=== PATIENT | female | born 1945 | race Caucasian/White ===

== ENCOUNTER 2017-02-27 11:46 | Inpatient (IN) | payer OTHER, MEDICAID ==
[~2017-02-27] VITALS: Ht 142.2 cm; Wt 67.6 kg
[2017-02-27 11:54] VITALS: BP 135/121
[2017-02-27] MEDS ORDERED: METO100T9 PO (12:00)
[2017-02-27] MEDS ORDERED: AMLO2.5T6 PO (12:00)
[2017-02-27] MEDS ORDERED: BEN10 PO (12:00)
[2017-02-27] MEDS ORDERED: ROSU10TA PO (12:00)
[2017-02-27] MEDS ORDERED: ALPR0.5T2 PO (12:00)
--- NOTE | 2017-02-27 12:02 | NUR ---
Patient to bed 8 at this time.
--- NOTE | 2017-02-27 12:03 | NUR ---
PT PRESENTS TO ER W/C/O CHEST PAIN, ABDOMINAL PAIN AND VOMITING SINCE THIS AM. HX ASTHMA, HTN, HYPERLIPIDEMIA, DIVERTICULITIS, GASTRITIS, ANXIETY. SKIN IS PINK/WARM/DRY; AAOX4 WITH EVEN AND STEADY GAIT; LUNGS CLEAR BL; HR EVEN AND REGULAR; PT DENIES ANY FEVER, CP, SOB, OR COUGH AT THIS TIME; PATIENT STATES PAIN OF 10/10 AT THIS TIME; VSS; PATIENT POSITIONED FOR COMFORT; HOB ELEVATED; BEDRAILS UP X2; BED DOWN. ER MD MADE AWARE OF PT STATUS. Addendum: 02/27/17 at 1515 by MED1 R KNEE SURGERY X 4 MO; SMALL SKIN OPEN.
[2017-02-27] MEDS ORDERED: cloNIDine 0.1 MG TAB PO ONE ×2 (12:05→12:30)
[2017-02-27] MEDS ORDERED: ONDANSETRON 4 MG/2 ML VIAL IVP ONE ×2 (12:05→12:30)
[2017-02-27] MEDS ORDERED: LORazepam 2 MG/ML VIAL IVP ONE ×2 (12:05→12:30)
[2017-02-27] MEDS ORDERED: NITROGLYCERIN 2% 1 GM PKT TP ONE ×2 (12:05→12:30)
[2017-02-27] MEDS ORDERED: ASPIRIN 81 MG TAB.CHEW PO ONE (12:05)
--- NOTE | 2017-02-27 12:09 | NUR ---
Patient being evaluated by physician at bedside.
[2017-02-27 12:33] LABS: EOSINOPHILS % (AUTO) 0.5 % (0.0-4.0)
[2017-02-27 12:39] LABS: BASOPHILS # (AUTO) 0.2 K/uL (0.00-0.22); BASOPHILS % (AUTO) 2.7 % (0.0-2.0); HEMATOCRIT 41.8 % (36-48); HEMOGLOBIN 14.5 g/dL (12.0-16.0); LYMPHOCYTES # (AUTO) 1.8 K/uL (2.5-16.5); LYMPHOCYTES % (AUTO) 20.5 % (20.5-51.1); MEAN CORPUSCULAR HEMOGLOBIN 34 pg (27-31); MEAN CORPUSCULAR HGB CONC 35 g/dL (33-37); MEAN CORPUSCULAR VOLUME 97 fL (80-94); MONOCYTES # (AUTO) 1.1 K/uL (0.8-1.0); MONOCYTES % (AUTO) 12.5 % (1.7-9.3); NEUTROPHILS # (AUTO) 5.9 K/uL (1.8-7.7); NEUTROPHILS % (AUTO) 63.8 % (42.2-75.2); PLATELET COUNT (AUTO) 354 K/uL (140-450); RED BLOOD CELL COUNT(AUTO) 4.31 MIL/uL (4.20-5.40); RED CELL DISTRIBUTION WIDTH 13.1 % (11.6-13.7)
[2017-02-27 12:49] LABS: PROTHROMBIN TIME 10.2 secs (10.8-13.4)
[2017-02-27 12:53] LABS: ALBUMIN 3.5 g/dL (3.4-5.0); ANION GAP 12.8 (8-16); ASPARTATE AMINOTRANSFERASE 20 U/L (15-37); CARBON DIOXIDE 25.3 mmol/L (21-32); CHLORIDE 91 mmol/L (98-107); CREATININE 0.6 mg/dL (0.6-1.3); GLUCOSE 115 mg/dL (74-106); POTASSIUM 3.1 mmol/L (3.5-5.1); SODIUM SERUM 126 mmol/L (136-145); TOTAL BILIRUBIN 0.5 mg/dL (0.0-1.0); UREA NITROGEN, BLOOD 7 mg/dL (7-18)
--- NOTE | 2017-02-27 12:59 | NUR ---
PT TAKEN TO X [facility].
--- NOTE | 2017-02-27 13:13 | NUR ---
BACK FROM X [facility].
--- NOTE | 2017-02-27 13:41 | NUR ---
Patient appears to be resting comfortably in bed. BP 93.56, PULSE OX 88% Respirations even and unlabored. GAVE OXIGEN 2 L/M NC . & 0.9% NSS 1000 ML WIDE OPEN PER MD ORDER. WILL CONTINUE TO MONITOR.
[2017-02-27] MEDS ORDERED: NACL 0.9% 1,000 ML IV ONE (13:50)
[2017-02-27] MEDS ORDERED: POTASSIUM CHL 20MEQ/D5-NS 1,000 ML IV ONE (13:50)
[2017-02-27] MEDS: NACL 0.9% 1,000 ML IV SCH ×2 (14:16→20:52)
[2017-02-27] MEDS ORDERED: ONDANSETRON 4 MG/2 ML VIAL IVP PRN (14:20)
[2017-02-27] MEDS ORDERED: HYDROcodone/APAP 7.5/325 MG 1 TAB PO PRN (14:20)
[2017-02-27] MEDS ORDERED: MECLIZINE 25 MG TAB PO PRN (14:45)
[2017-02-27] MEDS ORDERED: NITROGLYCERIN 0.4 MG TAB SL PRN (14:45)
--- NOTE | 2017-02-27 14:56 | NUR ---
Patient will be admitted to care of DR SANTOS. Admited to TELE. Will go to room 107B. Belongings list completed. Report to GINA MTZ.
--- NOTE | 2017-02-27 14:56 | NUR ---
GAVE REPORT TO GINA SWEET.
[2017-02-27 15:03] LABS: CHOL/HDL RATIO 3.7 (1-4.5); FREE T4 (FREE THYROXINE) 1.38 ng/dL (0.76-1.46); MAGNESIUM 1.9 mg/dL (1.8-2.4); PHOSPHORUS 2.9 mg/dL (2.5-4.9); THYROID STIMULATING HORMONE 2.93 uIU/mL (0.34-3.74)
[2017-02-27 15:06] LABS: APPEARANCE,URINE CLEAR (CLEAR); BILIRUBIN,URINE NEGATIVE (NEGATIVE); BLOOD, URINE NEGATIVE (NEGATIVE); COLOR,URINE YELLOW (YELLOW); LEUKOCYTE ESTERASE ,URINE TRACE (NEGATIVE); NITRITE, URINE NEGATIVE (NEGATIVE); UGLUCOSE NEGATIVE (NEGATIVE)
[2017-02-27 15:19] LABS: RBC,URINE 0-5 (RARE) /HPF (0-5); WBC,URINE 0-5 (RARE) /HPF (0-5)
--- NOTE | 2017-02-27 15:50 | NUR ---
Admitted from ER , with chief complaint of ABDOMINAL PAIN, CHEST PAIN , 71 y/o ,Female, AAOX4, NO S/S OF ACUTE DISTRESS. PT DENIES PAIN. IV SITE PATENT AND INTACT. BRUISING TO BUE AND BLE NOTED. PT STATES IT STARTED 2 MONTHS AGO AND DOESN'T KNOW WHERE IT COMES FROM. HEALED WOUND TO RIGHT KNEE NOTED. PIC IN CHART. TELE BOX IN PLACE. PLAN OF CARE DISCUSSED WITH PT. SON DARLENE MI AT BEDSIDE. PT oriented to call light, bed, phone,television, bathroom, smoking policy, visiting hours, procedures, ID bracelet on. Belongings list checked. WILL CONTINUE TO MONITOR.
[2017-02-27 16:09] VITALS: BP 142/78
[2017-02-27] MEDS ORDERED: METO-575 PO (16:13)
[2017-02-27] MEDS ORDERED: METOPROLOL SUCCINATE 50 MG TABER PO SCH (17:00)
[2017-02-27] MEDS ORDERED: amLODIPine 5 MG TAB PO SCH (17:00)
[2017-02-27] MEDS: DICYCLOMINE 10 MG CAP PO SCH (17:36)
[2017-02-27 18:23] VITALS: BP 108/60
[2017-02-27 18:24] VITALS: BP_SYST 108; BP_SYST 111; BP_DIAS 52; BP_DIAS 63
--- NOTE | 2017-02-27 19:19 | NUR ---
ENDORSED PLAN OF CARE TO NIGHT RN AT [facility]. WILL CONTINUE TO MONITOR.
--- NOTE | 2017-02-27 19:20 | NUR ---
RECEIVED REPORT FROM AM NURSE. PT IS AOX4, ABLE TO MAKE NEEDS KNOWN. WITH RESPIRATIONS CLEAR AND UNLABORED. NO COMPLAINTS OF PAIN AT THIS TIME. WITH AN IV, INTACT AND PATENT. NOTED WITH WITH BLE AND BUE DISCOLORATIONS. WITH A RIGHT KNEE HEELED WOUND. ON TELE MONITORING. INITIAL ASSESSMENT DONE. REORIENTED PT TO THE UNIT, VERBALIZED UNDERSTANDING. WILL CONTINUE TO MONITOR. ALL NEEDS ATTENDED. CALL LIGHT WITHIN REACH. SAFETY CHECKS IN PLACE.
[2017-02-27 20:00] VITALS: BP 105/55
[2017-02-27] MEDS: ATORVASTATIN 20 MG TAB PO SCH (21:00)
[2017-02-27] MEDS: DOCUSATE SODIUM 100 MG GELCAP PO SCH ×2 (21:00→21:04)
--- NOTE | 2017-02-27 21:04 | NUR ---
DUE MEDS GIVEN, WELL TOLERATED BY PATIENT. WILL CONTINUE TO MONITOR FOR ANY CHANGES.
[2017-02-27] MEDS: ACETAMINOPHEN 325 MG TAB PO PRN (21:50)
[2017-02-28] VITALS: BP 98/52
--- NOTE | 2017-02-28 | NUR ---
VITAL SIGNS STABLE. NO S/S OF DISTRESS. NO COMPLAINTS OF PAIN. WILL CONTINUE TO MONITOR FOR ANY CHANGES.
--- NOTE | 2017-02-28 02:22 | NUR ---
MADE ROUNDS, PATIENT ASLEEP. NO S/S OF DISTRESS. WILL CONTINUE TO MONITOR FOR ANY CHANGES.
--- NOTE | 2017-02-28 02:53 | NUR ---
TOLD DR. CHISHOLM THAT THE PATIENT'S PAIN SCALE WAS 9/10 AND DID NOT HAVE ANY PAIN MEDICATION FOR HER PAIN SCALE. SAID HE WOULD ORDER SOMETHING FOR HER PAIN.
[2017-02-28] MEDS ORDERED: MORPHINE SULFATE 2 MG/ML SYR IVP PRN (03:00)
--- NOTE | 2017-02-28 03:01 | NUR ---
DUE TO PT'S LOW PULSE RATE AND LOW BLOOD PRESSURE, DR. CHISHOLM SAID THAT HE DOESN'T WANT TO GIVE MORPHINE FOR HER PAIN AND SAID THAT HE WOULD RATHER HAVE THE PATIENT BE IN PAIN THAN TO CRASH AND JUST TO GIVE HER ZANAX INSTEAD.
--- NOTE | 2017-02-28 03:15 | NUR ---
TALKED TO DR. CHISHOLM IN REGARDS TO PATIENT'S PAIN, TOLD HIM THAT THE PATIENT SAID THAT HER ABDOMINAL PAIN IS LIKE THERE ARE HOLES IN HER STOMACH. SAID HE WILL COME TO TALK TO THE PATIENT HERSELF.
[2017-02-28] MEDS ORDERED: DICYCLOMINE HCL LIQUID 20 MG, ALUMINUM HYD/MAG/SIMETHICONE 30 ML, LIDOCAINE VISCOUS 2% ... PO SCH ×3 (03:20)
[2017-02-28] MEDS: ALPRAZolam 0.5 MG TAB PO PRN (03:22)
--- NOTE | 2017-02-28 03:22 | NUR ---
GAVE XANAX TO THE PATIENT FOR HER ANXIETY.
[2017-02-28] MEDS ORDERED: LIDOCAINE VISCOUS 2% 20 ML UDC ONE (03:53)
[2017-02-28] MEDS ORDERED: ALUMINUM HYD/MAG/SIMETHICONE 30 ML UDC ONE (03:53)
[2017-02-28 04:00] VITALS: BP 133/68
[2017-02-28] MEDS ORDERED: DICYCLOMINE HCL LIQUID 10 MG/5 ML UDC ONE (04:00)
--- NOTE | 2017-02-28 04:04 | NUR ---
VITALS STABLE. NO S/S OF DISTRESS. GAVE A GI COCKTAIL PER DR. CHISHOLM'S ORDER. WILL CONTINUE TO MONITOR FOR ANY CHANGES.
[2017-02-28 06:32] LABS: BASOPHILS # (AUTO) 0.1 K/uL (0.00-0.22); BASOPHILS % (AUTO) 1.7 % (0.0-2.0); EOSINOPHILS % (AUTO) 0.6 % (0.0-4.0); HEMOGLOBIN 13.9 g/dL (12.0-16.0); LYMPHOCYTES # (AUTO) 1.6 K/uL (2.5-16.5); LYMPHOCYTES % (AUTO) 18.8 % (20.5-51.1); MEAN CORPUSCULAR HEMOGLOBIN 34 pg (27-31); MEAN CORPUSCULAR HGB CONC 35 g/dL (33-37); MEAN CORPUSCULAR VOLUME 99 fL (80-94); MONOCYTES % (AUTO) 12.2 % (1.7-9.3); NEUTROPHILS # (AUTO) 5.6 K/uL (1.8-7.7); NEUTROPHILS % (AUTO) 66.7 % (42.2-75.2); PLATELET COUNT (AUTO) 330 K/uL (140-450); RED BLOOD CELL COUNT(AUTO) 4.04 MIL/uL (4.20-5.40); RED CELL DISTRIBUTION WIDTH 13.9 % (11.6-13.7); WHITE BLOOD COUNT (AUTO) 8.3 K/uL (4.8-10.8)
[2017-02-28] MEDS: NACL 0.9% 1,000 ML IV SCH ×2 (06:37→18:51)
[2017-02-28 06:39] LABS: ANION GAP 11.6 (8-16); CHLORIDE 105 mmol/L (98-107); CREATININE 0.5 mg/dL (0.6-1.3); GLUCOSE 98 mg/dL (74-106); POTASSIUM 3.6 mmol/L (3.5-5.1); SODIUM SERUM 140 mmol/L (136-145); UREA NITROGEN, BLOOD 4 mg/dL (7-18)
--- NOTE | 2017-02-28 07:08 | NUR ---
ENDORSED TO AM SHIFT NURSE FOR CONTINUITY OF CARE, IN STABLE CONDITION.
[2017-02-28 08:00] VITALS: BP 121/61
--- NOTE | 2017-02-28 08:17 | NUR ---
RECEIVED REPORT FROM LAZARA FUENTES FOR CONTINUITY OF CARE. PATIENT AWAKE A/OX4 NO S/S OF RESP DISTRESS NOTED NO COMPLAIN OF PAIN. IV SITE RT AC GAUGE 22 INTACT AND PATENT . IVF INFUSING WELL. PLAN OF CARE DISCUSSED WITH THE PATIENT VITALS STABLE WILL CONTINUE TO MONITOR.
[2017-02-28] MEDS ORDERED: ASPIRIN 325 MG TABEC PO SCH (09:00)
--- NOTE | 2017-02-28 09:00 | NUR ---
DUE MEDS GIVEN TOLERATED WELL . SELF MORNING CARE GIVEN WILL OBSERVE PATENT
[2017-02-28] MEDS ORDERED: HYDROcodone/APAP 10/325 MG 1 TAB TAB PO PRN (09:15)
[2017-02-28] MEDS: PANTOPRAZOLE 40 MG INJ VIAL IVP SCH (09:37)
[2017-02-28] MEDS: DOCUSATE SODIUM 100 MG GELCAP PO SCH ×2 (09:37→20:02)
[2017-02-28] MEDS: ASPIRIN 81 MG TAB.CHEW PO SCH (09:38)
[2017-02-28] MEDS: DICYCLOMINE 10 MG CAP PO SCH ×3 (09:38→16:35)
[2017-02-28] MEDS: METOPROLOL SUCCINATE 50 MG TABER PO SCH (09:38)
[2017-02-28] MEDS: LISINOPRIL 5 MG TAB PO SCH (09:39)
[2017-02-28] MEDS: amLODIPine 5 MG TAB PO SCH (09:39)
--- NOTE | 2017-02-28 09:56 | NUR ---
PATIENT HAS BEEN SCREENED AND CATEGORIZED MODERATE NUTRITION RISK. PATIENT WILL BE SEEN WITHIN 3-5 DAYS OF ADMISSION. 03/02/17-03/04/[address]
[2017-02-28] MEDS ORDERED: LACTOBACILLUS RHAMNOSUS GG 1 EACH CAP PO SCH (11:00)
[2017-02-28 12:05] VITALS: BP 113/56
--- NOTE | 2017-02-28 14:17 | NUR ---
PT BACK TO THE FLOOR ,SBFT DONE HALF WAY WILL GO BACK FOR THE 2ND PART . STABLE CONDITION.
--- NOTE | 2017-02-28 15:44 | NUR ---
2ND PART SBFT DONE . RELAXED ,DENIES ANY PAIN VITALS STABLE.
[2017-02-28 16:07] VITALS: BP 124/52
--- NOTE | 2017-02-28 17:07 | NUR ---
AMBULATE TO BATHROOM HAD BM , DENIES ANY PAIN VITALS STABLE AT THIS TIME.
--- NOTE | 2017-02-28 18:21 | NUR ---
DINNER SERVED TOLERATED WELL ,SAFETY MAINTAINED, CALL LIGHT IN REACH ,STABLE CONDITION.
--- NOTE | 2017-02-28 19:20 | NUR ---
RECEIVED REPORT FROM MORNING NURSE. PATIENT IS ALERT, AWAKE, AND ORIENTED. NO SIGNS AND SYMPTOMS OF DISTRESS NOTED. NO COMPLAINTS OF PAIN AT THIS TIME. IV SITE NOTED ON RIGHT ARM. IVF INFUSING WELL. BED IN LOWEST POSITION, SIDE RAILS UP AND CALL LIGHT WITHIN REACH. WILL CONTINUE TO MONITOR.
[2017-02-28 20:00] VITALS: BP 116/54
[2017-02-28] MEDS: SUCRALFATE 1 GM TAB PO SCH (20:01)
[2017-02-28] MEDS: ATORVASTATIN 20 MG TAB PO SCH (20:01)
--- NOTE | 2017-02-28 23:30 | NUR ---
CHECKED ON PATIENT, PATIENT IS ASLEEP. NO SIGNS AND SYMPTOMS OF DISTRESS NOTED. WILL CONTINUE TO MONITOR.
[2017-03-01] VITALS: BP 127/71
--- NOTE | 2017-03-01 03:30 | NUR ---
PATIENT COMPLAINED OF HEADACHE. MEDICATION GIVEN.
[2017-03-01] MEDS: ACETAMINOPHEN 325 MG TAB PO PRN (03:36)
[2017-03-01] MEDS: NACL 0.9% 1,000 ML IV SCH ×2 (03:42→13:03)
[2017-03-01 04:00] VITALS: BP 145/75
[2017-03-01] MEDS: ALPRAZolam 0.5 MG TAB PO PRN (06:11)
[2017-03-01 07:08] LABS: BASOPHILS # (AUTO) 0.1 K/uL (0.00-0.22); BASOPHILS % (AUTO) 1.5 % (0.0-2.0); EOSINOPHILS # (AUTO) 0.1 K/uL (0-0.4); EOSINOPHILS % (AUTO) 0.7 % (0.0-4.0); HEMATOCRIT 40.3 % (36-48); HEMOGLOBIN 13.6 g/dL (12.0-16.0); LYMPHOCYTES # (AUTO) 1.3 K/uL (2.5-16.5); LYMPHOCYTES % (AUTO) 16.2 % (20.5-51.1); MEAN CORPUSCULAR HEMOGLOBIN 34 pg (27-31); MEAN CORPUSCULAR HGB CONC 34 g/dL (33-37); MEAN CORPUSCULAR VOLUME 100 fL (80-94); MONOCYTES # (AUTO) 0.9 K/uL (0.8-1.0); MONOCYTES % (AUTO) 11.1 % (1.7-9.3); NEUTROPHILS # (AUTO) 5.9 K/uL (1.8-7.7); NEUTROPHILS % (AUTO) 70.5 % (42.2-75.2); PLATELET COUNT (AUTO) 287 K/uL (140-450); RED BLOOD CELL COUNT(AUTO) 4.04 MIL/uL (4.20-5.40); RED CELL DISTRIBUTION WIDTH 13.5 % (11.6-13.7); WHITE BLOOD COUNT (AUTO) 8.3 K/uL (4.8-10.8)
--- NOTE | 2017-03-01 07:24 | NUR ---
PATIENT REPORT GIVEN AT BEDSIDE TO MORNING NURSE. PATIENT IS IN STABLE CONDITION.
--- NOTE | 2017-03-01 07:25 | NUR ---
RECEIVED PT FROM DRUG ABUSE PROGRAM COORDINATOR NURSE AT BEDSIDE. PT IS A&OX4. PT HAS IV ON L HAND 24 G RUNNING NS@110. PT HAS BLE AND BUE DISCOLORATION. NO COMPLAINTS AT THIS TIME. CALL LIGHT WITHIN REACH. WILL CONTINUE TO MONITOR.
[2017-03-01] MEDS ORDERED: NITR100C7 PO (07:28)
[2017-03-01] MEDS ORDERED: LACT10CA PO (07:28)
[2017-03-01 07:30] LABS: CARBON DIOXIDE 25.1 mmol/L (21-32); CHLORIDE 108 mmol/L (98-107); CREATININE 0.5 mg/dL (0.6-1.3); GLUCOSE 87 mg/dL (74-106); POTASSIUM 3.1 mmol/L (3.5-5.1); SODIUM SERUM 142 mmol/L (136-145); UREA NITROGEN, BLOOD 7 mg/dL (7-18)
[2017-03-01 07:55] VITALS: BP 122/73
[2017-03-01 08:00] VITALS: BP 122/73
[2017-03-01] MEDS: DOCUSATE SODIUM 100 MG GELCAP PO SCH ×2 (09:00→09:20)
[2017-03-01] MEDS: amLODIPine 5 MG TAB PO SCH ×2 (09:00→09:21)
[2017-03-01] MEDS ORDERED: LACTOBACILLUS RHAMNOSUS GG 1 EACH CAP PO SCH (09:00)
--- NOTE | 2017-03-01 09:00 | NUR ---
PT IN STABLE CONDITION. CALL LIGHT WITHIN REACH. WILL CONTINUE TO MONITOR.
[2017-03-01] MEDS: PANTOPRAZOLE 40 MG INJ VIAL IVP SCH (09:18)
[2017-03-01] MEDS: LISINOPRIL 5 MG TAB PO SCH (09:19)
[2017-03-01] MEDS: DICYCLOMINE 10 MG CAP PO SCH ×2 (09:19→13:00)
[2017-03-01] MEDS: SUCRALFATE 1 GM TAB PO SCH (09:20)
[2017-03-01] MEDS: METOPROLOL SUCCINATE 50 MG TABER PO SCH (09:20)
[2017-03-01] MEDS: ASPIRIN 81 MG TAB.CHEW PO SCH (09:22)
[2017-03-01] MEDS ORDERED: POTASSIUM CHLORIDE 20% 40 MEQ/15 ML UDC PO SCH (09:30)
--- NOTE | 2017-03-01 10:40 | NUR ---
PT REQUESTED TO SPEAK TO ONCE HER SON GETS HERE. WILL TALK TO DR TO LET HER KNOW ONCE SON GETS HERE.
--- NOTE | 2017-03-01 11:45 | NUR ---
PT FINISHED LUNCH IN CHAIR. NO DISTRESS NOTED. CALL LIGHT WITHIN REACH. WILL CONTINUE TO MONITOR.
[2017-03-01 12:00] VITALS: BP 143/79
--- NOTE | 2017-03-01 13:20 | NUR ---
REMOVED IV CANNULA INTACT. REMOVED ALL ID BANDS. WENT OVER DC PAPERWORK WITH PT USING TRANSLATION PHONE # [phone]. PT WILL GET DRESSED AND CALL RN WHEN READY TO GO.
--- NOTE | 2017-03-01 13:30 | NUR ---
WHEELED PT OUT OF HOSPITAL. PT TOOK ALL BELONGINGS WITH HER. PT IN STABLE CONDITION.
== END 2017-03-01 13:30 | disposition home or self-care (01) | DRG 74 ==
LOC: MED 11:46 → MTU 14:23
PROVIDERS: ADMIT Family Medicine Sports Medicine; ATTEND Family Medicine Sports Medicine
DX: G90.9 Disorder of the autonomic nervous system, unspecified (principal); E87.1 Hypo-osmolality and hyponatremia; E87.8 Other disorders of electrolyte and fluid balance, not elsewhere classified; K56.7 Ileus, unspecified; N39.0 Urinary tract infection, site not specified; K21.9 Gastro-esophageal reflux disease without esophagitis; R42 Dizziness and giddiness; E87.6 Hypokalemia; I16.0 Hypertensive urgency; E11.9 Type 2 diabetes mellitus without complications; K57.90 Diverticulosis of intestine, part unspecified, without perforation or abscess without bleeding; E78.2 Mixed hyperlipidemia; E78.00 Pure hypercholesterolemia, unspecified; M19.90 Unspecified osteoarthritis, unspecified site; E66.9 Obesity, unspecified; F41.1 Generalized anxiety disorder; Z68.33 Body mass index [BMI] 33.0-33.9, adult; Z98.84 Bariatric surgery status
CPT/HCPCS: 36415; 70450; 71010; 74000; 74250; 80048; 80053; 81001; 82140; 82150; 83036; 83690; 83735; 83880; 84100; 84439; 84443; 84484; 85025; 85610; 85730; 87081; 93005; 93880; 97110; 97116; 97530; 99291; C9113; J0696; J2060; J2405; J7030; J7060; Q0092

== ENCOUNTER 2017-03-02 22:23 | Inpatient (IN) | payer OTHER, MEDICAID ==
[~2017-03-02] VITALS: Ht 152.4 cm; Wt 66.7 kg
[~2017-03-02 22:23] MED LIST: ALPR0.5T2 PO; AMLO2.5T6 PO; BEN10 PO; LACT10CA PO; METO-575 PO; METO100T9 PO; NITR100C7 PO; ROSU10TA PO
[2017-03-02 22:38] VITALS: BP 153/116
--- NOTE | 2017-03-02 23:28 | NUR ---
PT TAKEN TO CT VIA WHEELCHAIR.
--- NOTE | 2017-03-02 23:39 | NUR ---
BIB WHEELCHAIR TO ER BED [address] SCAN
--- NOTE | 2017-03-02 23:40 | NUR ---
EARLE GILMORE EVALUATING PT AT BED SIDE.
[2017-03-03] VITALS (9 sets, daily range): BP systolic 122–158; BP diastolic 46–75
--- NOTE | 2017-03-03 00:03 | NUR ---
71 Y/O BIB SON FOR HIGH BLOOD PRESSURE AT HOME. DISCHARGED FROM [facility] YESTERDAY .PT CONFUSED SINCE THIS AFTERNOON PER SON. MED HX: HTN/DIVERTICULITIS
[2017-03-03 00:12] LABS: HEMATOCRIT 46.3 % (36-48); HEMOGLOBIN 15.5 g/dL (12.0-16.0); MEAN CORPUSCULAR HEMOGLOBIN 33 pg (27-31); MEAN CORPUSCULAR HGB CONC 34 g/dL (33-37); MEAN CORPUSCULAR VOLUME 98 fL (80-94); PLATELET COUNT (AUTO) 440 K/uL (140-450); RED BLOOD CELL COUNT(AUTO) 4.73 MIL/uL (4.20-5.40); RED CELL DISTRIBUTION WIDTH 12.7 % (11.6-13.7); WHITE BLOOD COUNT (AUTO) 11.4 K/uL (4.8-10.8)
[2017-03-03 00:23] LABS: ANION GAP 14.1 (8-16); CHLORIDE 76 mmol/L (98-107); CREATININE 0.6 mg/dL (0.6-1.3); GLUCOSE 157 mg/dL (74-106); POTASSIUM 3.1 mmol/L (3.5-5.1); UREA NITROGEN, BLOOD 8 mg/dL (7-18)
[2017-03-03 00:33] LABS: LYMPHOCYTES % (MANUAL) 20 % (20-46); MONOCYTES % (MANUAL) 5 % (5-12)
[2017-03-03 00:34] LABS: PROTHROMBIN TIME 11.1 secs (10.8-13.4)
[2017-03-03 00:38] LABS: SODIUM SERUM 113 mmol/L (136-145)
[2017-03-03] MEDS ORDERED: NACL 3% 100 ML IV ONE ×2 (00:40→03:30)
--- NOTE | 2017-03-03 01:42 | NUR ---
PT RESTING IN BED, VSS. DEXTER CONTINUES AT BEDSIDE. ON MONITOR,NORMAL SINUS RHYTHM.
--- NOTE | 2017-03-03 02:15 | NUR ---
PT ASSISTED WITH BED PED FOR URINE. 100ML CLEAR YELLOW URINE NOTED. NO ODOR. PT RESTING IN BED AT THIS TIME. NO ACUTE DISTRESS NOTED. SON AT BED SIDE.
--- NOTE | 2017-03-03 02:40 | NUR ---
REPORT GIVEN TO GINA MIRANDA IN ICU FOR PT BEING ADMITTED TO ICU BED 2.
--- NOTE | 2017-03-03 02:45 | NUR ---
RECEIVED REPORT FROM GINA PAINTING. PT GCS 15. BILATERAL PERRLA NOTED. DENIES PAIN OR DISCOMFORT. LUNGS CLEAR ON AUSCULTATION. EQUAL, UNLABORED BREATH NOTED. SR ON MONITOR. SKIN INTACT. R FOREARM 22 GAUGE IV NOTED. INTACT AND PATENT. GENERALIZED MILD WEAKNESS NOTED. ABLE TO AMBULATE TO BED WITH 2 PEOPLE MINIMAL ASSIST. BOWEL SOUND PRESENT X 4 QUADRANT. ABDOMEN SOFT, NONTENDER. SAFETY PRECAUTION MAINTAINED. NO S/SX OF ACUTE DISTRESS NOTED. CALL LIGHT WITHIN REACH. BED AT LOWEST SETTING. WILL CONTINUE TO MONITOR FOR CHANGES
--- NOTE | 2017-03-03 02:45 | NUR ---
PT TRANSFERRED TO ICU BED 2 VIA GURNEY ACCOMPANIED BY RN AND EMT. PT STABLE DURING TRANSFER.
[2017-03-03] MEDS ORDERED: MORPHINE SULFATE 2 MG/ML SYR IVP PRN (02:55)
[2017-03-03] MEDS ORDERED: DOCUSATE SODIUM 100 MG GELCAP PO PRN (02:55)
--- NOTE | 2017-03-03 03:15 | NUR ---
PT RESTING IN BED. EASILY AWAKEN. WILL CONTINUE TO MONITOR.
[2017-03-03 03:24] LABS: ANION GAP 13.5 (8-16); CARBON DIOXIDE 26.1 mmol/L (21-32); CHLORIDE 78 mmol/L (98-107); CREATININE 0.4 mg/dL (0.6-1.3); GLUCOSE 121 mg/dL (74-106); UREA NITROGEN, BLOOD 8 mg/dL (7-18)
[2017-03-03 03:28] LABS: POTASSIUM 2.6 mmol/L (3.5-5.1); SODIUM SERUM 115 mmol/L (136-145)
[2017-03-03 03:39] LABS: APPEARANCE,URINE CLOUDY (CLEAR); BILIRUBIN,URINE NEGATIVE (NEGATIVE); BLOOD, URINE TRACE-I (NEGATIVE); COLOR,URINE YELLOW (YELLOW); LEUKOCYTE ESTERASE ,URINE NEGATIVE (NEGATIVE); NITRITE, URINE NEGATIVE (NEGATIVE); UGLUCOSE NEGATIVE (NEGATIVE)
[2017-03-03 03:40] LABS: CHOL/HDL RATIO 2.4 (1-4.5); FREE T4 (FREE THYROXINE) 1.57 ng/dL (0.76-1.46); MAGNESIUM 1.7 mg/dL (1.8-2.4); PHOSPHORUS 2.8 mg/dL (2.5-4.9); THYROID STIMULATING HORMONE 3.23 uIU/mL (0.34-3.74)
[2017-03-03] MEDS ORDERED: KCL 20 MEQ/WATER INJ PREMIX 200 ML IV SCH (03:40)
--- NOTE | 2017-03-03 03:45 | NUR ---
PT STATED ALLERGIES TO MORPHINE. MD NOTIFIED. WILL CHANGE ALLERGIES.
--- NOTE | 2017-03-03 03:50 | NUR ---
R WRIST SWELLING NOTED. KERLIX REMOVED FROM ARM. ARM ELEVATED TO REDUCE SWELLING, WILL CONTINUE TO MONITOR. BILATERAL FOREARM NOTED WITH BRUISES. PICTURE TAKEN.
[2017-03-03] MEDS ORDERED: KETOROLAC 30 MG/ML VIAL IVP PRN ×2 (04:00→04:25)
--- NOTE | 2017-03-03 04:00 | NUR ---
PER MD, WILL FOLLOW NEW ORDERS AND HOLD PAIN MEDICATION FOR NOW.
[2017-03-03 04:06] LABS: RBC,URINE 0-5 (RARE) /HPF (0-5); WBC,URINE 0-5 (RARE) /HPF (0-5)
--- NOTE | 2017-03-03 04:10 | NUR ---
PER DR. CHISHOLM, 3% NS 100 ML WILL BE GIVEN PUSH OVER 5 MIN NOT DRIP. WILL CARRY OUT ORDERED.
[2017-03-03] MEDS ORDERED: PANTOPRAZOLE 40 MG INJ VIAL IVP SCH (04:15)
[2017-03-03] MEDS ORDERED: NACL 3% 100 ML IV SCH (04:15)
--- NOTE | 2017-03-03 04:26 | NUR ---
PT C/O PAIN AT THE IV SITE WITH KCL ADMINISTRATION. PER KYLE ZAMORANO TO CHANGE RATE OF POTASSIUM TO 25 ML/HR FOR NOW. WILL CONTINUE TO MONITOR.
--- NOTE | 2017-03-03 05:00 | NUR ---
PT C/O ABDOMINAL PAIN. STATED SLIGHT RELIEF FROM PROTONIX IVP. PER PT, PAIN WILL BE RELIEVED WITH FOOD. SANDWICH PROVIDED. WILL CONTINUE TO MONITOR.
[2017-03-03 05:54] LABS: HEMATOCRIT 45.9 % (36-48); HEMOGLOBIN 15.3 g/dL (12.0-16.0); MEAN CORPUSCULAR HEMOGLOBIN 33 pg (27-31); MEAN CORPUSCULAR HGB CONC 33 g/dL (33-37); MEAN CORPUSCULAR VOLUME 99 fL (80-94); PLATELET COUNT (AUTO) 376 K/uL (140-450); RED BLOOD CELL COUNT(AUTO) 4.63 MIL/uL (4.20-5.40)
--- NOTE | 2017-03-03 06:00 | NUR ---
ASSISTED PT TO BEDSIDE COMMODE. PT ABLE TO AMBULATE. VOIDED. PT HAD SMALL AMOUNT OF LOOSE BM
[2017-03-03 06:34] LABS: ANION GAP 13.8 (8-16); CARBON DIOXIDE 23.9 mmol/L (21-32); CHLORIDE 81 mmol/L (98-107); CREATININE 0.4 mg/dL (0.6-1.3); GLUCOSE 113 mg/dL (74-106); UREA NITROGEN, BLOOD 8 mg/dL (7-18)
[2017-03-03 06:37] LABS: POTASSIUM 2.7 mmol/L (3.5-5.1); SODIUM SERUM 116 mmol/L (136-145)
[2017-03-03 07:11] LABS: LYMPHOCYTES % (MANUAL) 19 % (20-46); MONOCYTES % (MANUAL) 7 % (5-12)
[2017-03-03] MEDS ORDERED: KETOROLAC 15 MG/ML VIAL IVP PRN (07:19)
--- NOTE | 2017-03-03 07:40 | NUR ---
RECEIVED A REPORT FROM GINA MIRANDA. PT IS ALERT AND ORIENTED X 4. STOMACH PAIN 11/09 BUT REFUSED PAIN MED AT THIS TIME. ABLE TO MOVE ALL EXTREMITIES WITHOUT ANY DIFFICULTY. ABDOMEN SOFT AND NONTENDER. IV SITE ON RT ARM #20G AND RFA #22G. NO S/SX OF ACUTE DISTRESS NOTED. ON SCD. PROVIDED BREAKFAST TRAY AT BEDSIDE. DR. DIAZ IN TO SEE PT AND INFORMED OF ABNORMAL LAB RESULT. SAFETY PRECAUTION. BED IN LOW POSITION, CALL LIGHT WITHIN REACH. WILL CONTINUE TO MONITOR AND FOLLOW ON ORDERS. Addendum: 03/03/17 at 0905 by Alberto Calderon RN SKIN INTACT AND WARM TO TOUCH.
--- NOTE | 2017-03-03 07:43 | NUR ---
ENDORSED CARE TO RUTH AND GINA REINOSO. PT IS STABLE.
--- NOTE | 2017-03-03 07:50 | NUR ---
DR. DIAZ'S GROUP IN TO SEE PT. WILL FOLLOW UP ON ORDERS.
[2017-03-03] MEDS: LACTOBACILLUS RHAMNOSUS GG 1 EACH CAP PO SCH (08:29)
[2017-03-03] MEDS: amLODIPine 5 MG TAB PO SCH (08:30)
[2017-03-03] MEDS: METOPROLOL SUCCINATE 50 MG TABER PO SCH ×2 (08:30→09:00)
[2017-03-03] MEDS ORDERED: POTASSIUM CHLORIDE 10 MEQ TABER PO SCH (08:32)
[2017-03-03] MEDS ORDERED: MAGNESIUM CHLORIDE 64 MG TABEC PO SCH (08:32)
--- NOTE | 2017-03-03 08:42 | NUR ---
PATIENT HAS BEEN SCREENED AND CATEGORIZED MODERATE NUTRITION RISK. PATIENT WILL BE SEEN WITHIN 3-5 DAYS OF ADMISSION. 03/05/17-03/07/[address]
[2017-03-03] MEDS ORDERED: PANTOPRAZOLE 40 MG TABEC PO SCH (08:56)
--- NOTE | 2017-03-03 09:00 | NUR ---
HOLD TOPROL XL DUE TO HR IS BELOW 60. PT STABLE
[2017-03-03] MEDS: FAMOTIDINE 20 MG TAB PO SCH ×2 (09:19→20:06)
--- NOTE | 2017-03-03 09:20 | NUR ---
PT TOLERATED MEDICATIONS WELL
--- NOTE | 2017-03-03 09:45 | NUR ---
URINE SAMPLE WAS SENT TO THE LAB.
--- NOTE | 2017-03-03 09:46 | NUR ---
PT'S SON PRESENT AT BEDSIDE.
--- NOTE | 2017-03-03 09:51 | NUR ---
PT'S SON AT BEDSIDE AND UPDATED PT'S MEDICAL CONDITION STATUS.
[2017-03-03 10:31] LABS: ANION GAP 12.8 (8-16); CHLORIDE 81 mmol/L (98-107); CREATININE 0.4 mg/dL (0.6-1.3); GLUCOSE 112 mg/dL (74-106); POTASSIUM 3.8 mmol/L (3.5-5.1); UREA NITROGEN, BLOOD 10 mg/dL (7-18)
[2017-03-03 10:34] LABS: SODIUM SERUM 114 mmol/L (136-145)
[2017-03-03] MEDS ORDERED: PROBIOTIC SCREEN 1 EA MISC MC PRN (10:55)
[2017-03-03] MEDS ORDERED: NACL 3% 500 ML IV SCH (10:55)
[2017-03-03] MEDS: ALUMINUM HYD/MAG/SIMETHICONE 30 ML UDC PO PRN (11:26)
--- NOTE | 2017-03-03 11:26 | NUR ---
DR. EVANS IN TO SEE PT. WILL FOLLOW UP ON ORDERS.
--- NOTE | 2017-03-03 11:30 | NUR ---
MALANTA PRN MEDICATION GIVEN ORDERED DUE TO C/O STOMACH DISCOMFORT
[2017-03-03] MEDS ORDERED: SODIUM CHLORIDE 1 GM TAB PO SCH (12:00)
[2017-03-03] MEDS ORDERED: FUROSEMIDE 20 MG/2 ML VIAL IVP SCH (12:00)
--- NOTE | 2017-03-03 12:11 | NUR ---
PT TOLERATED MEDICATION WELL
[2017-03-03] MEDS: ONDANSETRON 4 MG/2 ML VIAL IM/IVP PRN (12:55)
--- NOTE | 2017-03-03 12:56 | NUR ---
PT IS HAVING A EPISODE OF NAUSEA AND VOMIT X 1. ZOFRAN IV GIVEN PRN ORDERED. WILL CONTINUE TO MONITOR
--- NOTE | 2017-03-03 13:33 | NUR ---
PT VERBALIZED NO NAUSEA AND VOMITING AT THIS TIME.
--- NOTE | 2017-03-03 15:36 | NUR ---
PT STABLE AND ASLEEP AT THIS TIME. WILL CONTINUE TO MONITOR
--- NOTE | 2017-03-03 16:28 | NUR ---
MEDICATION GIVEN FOR STOMACH PAIN 12/09 ORDERED. WILL CONTINUE TO MONITOR
--- NOTE | 2017-03-03 16:40 | NUR ---
DR. PEDRAZA IN TO SEE PT. WILL FOLLOW UP ON ORDERS
[2017-03-03 17:10] LABS: ANION GAP 12.2 (8-16); CARBON DIOXIDE 26.8 mmol/L (21-32); CHLORIDE 82 mmol/L (98-107); CREATININE 0.6 mg/dL (0.6-1.3); GLUCOSE 100 mg/dL (74-106); UREA NITROGEN, BLOOD 10 mg/dL (7-18)
--- NOTE | 2017-03-03 17:11 | NUR ---
RECEIVED A CALL FROM LAB REGARDING CRITICAL LAB RESULT OF SODIUM 117. IT IS TRENDING UP AND PT IS ASYMPTOMATIC. WILL CONTINUE TO MONITOR.
[2017-03-03 17:12] LABS: SODIUM SERUM 117 mmol/L (136-145)
--- NOTE | 2017-03-03 17:24 | NUR ---
DR. MONCADA IN TO SEE PT. WILL FOLLOW UP ON ORDERS
--- NOTE | 2017-03-03 19:16 | NUR ---
REPORT GIVEN TO RAYSHAWN LONG RN. PT STABLE
--- NOTE | 2017-03-03 19:20 | NUR ---
RECEIVED A REPORT FROM GINA CLOUD AND GINA REINOSO AT BEDSIDE. PT IS A/OX4, ABLE TO FOLLOW COMMANDS AND MAKE NEEDS KNOWN. DENIES PAIN, VSS, NO S/S OF SOB/DISTRESS NOTED, CLEAR LUNG SOUNDS, DENIES CHEST PAIN, SR ON FACULTY PHYSICIAN, SOFT ABDOMEN WITH ACTIVE BOWEL SOUNDS, CONTINENT WITH B&B'S, ABLE TO MOVE ALL EXTREMITIES, SCD PLACED ON BLE FOR PREVENTION. SKIN IS INTACT, WARM AND DRY TO TOUCH. IV SITE TO RT FOREARM #20G AND #22G. PATENT, SL. SAFETY PRECAUTION IN PLACE, CALL LIGHT WITHIN REACH, WILL CONTINUE TO MONITOR.
[2017-03-03] MEDS: SODIUM CHLORIDE 1 GM TAB PO SCH (20:05)
[2017-03-03] MEDS: SIMVASTATIN 20 MG TAB PO SCH (20:05)
--- NOTE | 2017-03-03 20:30 | NUR ---
SCHEDULED MEDICATION GIVEN, PT ABLE TO SWALLOW AND NO ADVERSE EFFECTS NOTED.
[2017-03-03] MEDS ORDERED: NON-FORMULARY ITEM (Rosuvastatin Calcium* (Crestor*) 10 MG) PO SCH (21:00)
[2017-03-03 22:36] LABS: ANION GAP 7.7 (8-16); CARBON DIOXIDE 29.4 mmol/L (21-32); CHLORIDE 84 mmol/L (98-107); CREATININE 0.7 mg/dL (0.6-1.3); GLUCOSE 92 mg/dL (74-106); POTASSIUM 4.1 mmol/L (3.5-5.1); UREA NITROGEN, BLOOD 14 mg/dL (7-18)
[2017-03-03 22:38] LABS: SODIUM SERUM 117 mmol/L (136-145)
[2017-03-04] VITALS (8 sets, daily range): BP systolic 89–148; BP diastolic 51–82
--- NOTE | 2017-03-04 | NUR ---
PT IS ASLEEP, NO S/S OF DISTRESS, VSS.
--- NOTE | 2017-03-04 04:00 | NUR ---
NO CHANGE OF CONDITION AT THIS TIME, VSS, AM CARE PROVIDED, ORAL CARE PROVIDED.
[2017-03-04 04:48] LABS: HEMATOCRIT 43.3 % (36-48); HEMOGLOBIN 14.9 g/dL (12.0-16.0); MEAN CORPUSCULAR HEMOGLOBIN 33 pg (27-31); MEAN CORPUSCULAR HGB CONC 34 g/dL (33-37); MEAN CORPUSCULAR VOLUME 97 fL (80-94); PLATELET COUNT (AUTO) 384 K/uL (140-450); RED BLOOD CELL COUNT(AUTO) 4.47 MIL/uL (4.20-5.40); RED CELL DISTRIBUTION WIDTH 13.1 % (11.6-13.7); WHITE BLOOD COUNT (AUTO) 9.1 K/uL (4.8-10.8)
[2017-03-04] MEDS: ONDANSETRON 4 MG/2 ML VIAL IM/IVP PRN ×3 (05:00→16:53)
--- NOTE | 2017-03-04 05:05 | NUR ---
PT FEELING NAUSEATED, ZOFRAN GIVEN, WILL CONTINUE TO MONITOR.
[2017-03-04] MEDS: PANTOPRAZOLE 40 MG TABEC PO SCH (05:54)
[2017-03-04 06:19] LABS: CHLORIDE 85 mmol/L (98-107); CREATININE 0.6 mg/dL (0.6-1.3); GLUCOSE 89 mg/dL (74-106); UREA NITROGEN, BLOOD 17 mg/dL (7-18)
[2017-03-04 06:21] LABS: SODIUM SERUM 117 mmol/L (136-145)
[2017-03-04 06:35] LABS: MAGNESIUM 1.9 mg/dL (1.8-2.4); PHOSPHORUS 3.7 mg/dL (2.5-4.9)
[2017-03-04 06:42] LABS: EOSINOPHILS % (MANUAL) 1 % (0-4); LYMPHOCYTES % (MANUAL) 13 % (20-46); MONOCYTES % (MANUAL) 7 % (5-12)
--- NOTE | 2017-03-04 07:10 | NUR ---
REPORT GIVEN TO GINA CLOUD. PT IS IN STABLE CONDITION AT THIS TIME.
--- NOTE | 2017-03-04 07:23 | NUR ---
RECEIVED A REPORT FROM RAYSHAWN LONG RN. PT IS ALERT AND ORIENTED X 4. IRAQI SPEAKING WITH LIMITED HEBREW. SR ON THE MONITOR. DENIES ANY PAIN OR C/O NAUSEA/VOMITING AT THIS TIME. SKIN WARM TO TOUCH. ON SCD. IV SITE ON RT IJ [id number]. SAFETY PRECAUTION. BED IN LOW POSITION. CALL LIGHT WITHIN REACH. WILL CONTINUE TO MONITOR. Addendum: 03/04/17 at 0735 by Alberto Calderon RN CORRECTION OF DOCUMENTATION; PT HAS PERIPHERAL IV LINE ON RT ARM#22G AND RFA #20G. SHE DOES NOT HAVE RT IJ LINE.
--- NOTE | 2017-03-04 07:52 | NUR ---
DR. DIAZ'S GROUP IN TO SEE PT. WILL FOLLOW UP ON ORDERS.
--- NOTE | 2017-03-04 07:53 | NUR ---
DR. HUBER AWARE OF LOW SODIUM 117. WILL FOLLOW UP ON ORDERS
[2017-03-04] MEDS: LACTOBACILLUS RHAMNOSUS GG 1 EACH CAP PO SCH (08:16)
[2017-03-04] MEDS: SODIUM CHLORIDE 1 GM TAB PO SCH ×2 (08:16→18:35)
[2017-03-04] MEDS: METOPROLOL SUCCINATE 50 MG TABER PO SCH ×2 (08:16→08:33)
[2017-03-04] MEDS: FAMOTIDINE 20 MG TAB PO SCH ×2 (08:16→20:44)
[2017-03-04] MEDS: amLODIPine 5 MG TAB PO SCH ×2 (08:17→08:33)
[2017-03-04 08:22] LABS: T4 (THYROXINE) 11.5 ug/dL (4.5-12.0)
--- NOTE | 2017-03-04 08:33 | NUR ---
HOLD NORVASC AND METOPROLOL DUE TO BP 105/57. PT TOLERATED OTHER MEDICATIONS WELL.
--- NOTE | 2017-03-04 09:48 | NUR ---
ZOFRAN GIVEN PRN ORDERED FOR C/O NAUSEA. WILL CONTINUE TO MONITOR.
--- NOTE | 2017-03-04 10:15 | NUR ---
PT STABLE AND NO C/O NAUSEA NOTED
--- NOTE | 2017-03-04 10:30 | NUR ---
PT'S SON AT BEDSIDE AND WAS UPDATED OF PT'S CONDITION BY DR. PEDRAZA AT BEDSIDE.
--- NOTE | 2017-03-04 10:38 | NUR ---
DR. EVANS IN TO SEE PT. WILL FOLLOW UP ON ORDERS.
[2017-03-04] MEDS ORDERED: FUROSEMIDE 20 MG/2 ML VIAL IVP SCH ×2 (10:43→11:00)
--- NOTE | 2017-03-04 10:45 | NUR ---
DR. EVANS AND DR. PEDRAZA IN TO SEE PT. WILL FOLLOW UP ON ORDERS
[2017-03-04] MEDS ORDERED: METOCLOPRAMIDE 10 MG/2 ML INJ VIAL IVP PRN (11:00)
--- NOTE | 2017-03-04 11:28 | NUR ---
CHECKED POTASSIUM: 4.0 AND BP: 121/61. ADMINISTERED LASIX ORDERED. PT TOLERATED WELL. WILL CONTINUE TO MONITOR.
--- NOTE | 2017-03-04 12:49 | NUR ---
REPORT GIVEN TO GINA GOODWIN IN TELE UNIT. PT WILL BE TRANSFERRED TO ROOM 121A AND PT'S SON AWARE.
[2017-03-04] MEDS ORDERED: METOCLOPRAMIDE 10 MG/2 ML INJ VIAL IM ONE (13:00)
--- NOTE | 2017-03-04 14:00 | NUR ---
PT RECEIVED FROM ICU VIA BED, AWAKE ALERT AND OREINTED X4. NO PAIN OR RESP DISTRESS NOTED. PT IS ABLE TO MAKE NEEDS KNOWN WELL. MOVING ALL EXT WELL IN BED. NORMAL SINUS RHYTHM ON THE MONITOR. V/S STABLE.
[2017-03-04] MEDS: ACETAMINOPHEN 325 MG TAB PO PRN (16:53)
[2017-03-04 17:08] LABS: ANION GAP 14.3 (8-16); CHLORIDE 86 mmol/L (98-107); CREATININE 0.6 mg/dL (0.6-1.3); GLUCOSE 103 mg/dL (74-106); POTASSIUM 3.3 mmol/L (3.5-5.1); UREA NITROGEN, BLOOD 19 mg/dL (7-18)
--- NOTE | 2017-03-04 17:20 | NUR ---
PT IS CURRENTLY RESTING WELL IN BED WITH FAMILY AT THE BED SITE. NO DISTRESS AT THIS TIME. TYLENOL 650MG PO WAS GIVEN FOR HEADACHE WELL ZOFRAN 4 MG IVP FOR NAUSEA AT 1650. SCD APPLIED ON PT. SIDE RAILS UP X2.
[2017-03-04 17:21] LABS: SODIUM SERUM 122 mmol/L (136-145)
[2017-03-04] MEDS ORDERED: POTASSIUM CHLORIDE 10 MEQ TABER PO SCH (18:15)
[2017-03-04] MEDS: ALUMINUM HYD/MAG/SIMETHICONE 30 ML UDC PO PRN (18:35)
--- NOTE | 2017-03-04 19:30 | NUR ---
Patient's Plan of Care was discussed and reviewed with TARIFF COMPILER: JANIE.
--- NOTE | 2017-03-04 19:40 | NUR ---
RECD. RESTING IN BED, AWAKE, A/OX4. RESPIRATION EVEN AND UNLABORED. IV SALINE LOCK RIGHT AC, G22 AND RFA G20, PATENT AND INTACT. NOTED BRUISES ON BILATERAL ARMS. ON BILATERAL LEG SEQUENTIALS. PLAN OF CARE FOR THE SHIFT DISCUSSED. VERBALIZED UNDERSTANDING. DENIES PAIN 0/10.
--- NOTE | 2017-03-04 19:52 | NUR ---
PT REMAINS CALM IN BED. URINE SENT TO LAB ORDERED. PT IS GIVEN MYLANTA PO GIVEN AT 1623 FOR C/O STOMACH UPSET. PT TOLERATED DINNER WELL WITHOUT ANY N/V. V/S STABLE.
--- NOTE | 2017-03-04 20:45 | NUR ---
DUE PO MEDICATIONS GIVEN.
[2017-03-04] MEDS: SIMVASTATIN 20 MG TAB PO SCH (20:46)
--- NOTE | 2017-03-04 21:32 | NUR ---
ADMINISTERED SCHEDULED MEDICATIONS, PT TOLERATED WELL. PT REFUSED HYDRAGUARD AND KENOLOG. EXPLAINED TO PT THAT THE CREAMS WOULD HELP HER BUT SHE STATED HER LOTION HELPED HER JUST THE SAME. EDUCATED PT ON THE DIFFERENCE BETWEEN THE CREAMS AND LOTION, PT STILL REFUSED. PT IN STABLE CONDITION, NO SIGNS OF DISTRESS NOTED. WILL CONTINUE TO MONITOR.
[2017-03-05] VITALS: BP 121/58
--- NOTE | 2017-03-05 | NUR ---
SLEEPING COMFORTABLY IN BED.
[2017-03-05 04:00] VITALS: BP 123/68
[2017-03-05 05:49] LABS: BASOPHILS # (AUTO) 0.3 K/uL (0.00-0.22); BASOPHILS % (AUTO) 3.3 % (0.0-2.0); EOSINOPHILS % (AUTO) 0.5 % (0.0-4.0); HEMATOCRIT 43.3 % (36-48); HEMOGLOBIN 14.7 g/dL (12.0-16.0); LYMPHOCYTES # (AUTO) 0.8 K/uL (2.5-16.5); LYMPHOCYTES % (AUTO) 9.5 % (20.5-51.1); MEAN CORPUSCULAR HEMOGLOBIN 33 pg (27-31); MEAN CORPUSCULAR HGB CONC 34 g/dL (33-37); MEAN CORPUSCULAR VOLUME 98 fL (80-94); MONOCYTES # (AUTO) 1.2 K/uL (0.8-1.0); MONOCYTES % (AUTO) 14.5 % (1.7-9.3); NEUTROPHILS # (AUTO) 5.9 K/uL (1.8-7.7); NEUTROPHILS % (AUTO) 72.2 % (42.2-75.2); PLATELET COUNT (AUTO) 355 K/uL (140-450); RED BLOOD CELL COUNT(AUTO) 4.43 MIL/uL (4.20-5.40); RED CELL DISTRIBUTION WIDTH 13.1 % (11.6-13.7); WHITE BLOOD COUNT (AUTO) 8.2 K/uL (4.8-10.8)
[2017-03-05 06:04] LABS: ANION GAP 13.4 (8-16); CARBON DIOXIDE 24.4 mmol/L (21-32); CHLORIDE 89 mmol/L (98-107); CREATININE 0.6 mg/dL (0.6-1.3); GLUCOSE 101 mg/dL (74-106); POTASSIUM 3.8 mmol/L (3.5-5.1); UREA NITROGEN, BLOOD 20 mg/dL (7-18)
[2017-03-05 06:09] LABS: SODIUM SERUM 123 mmol/L (136-145)
[2017-03-05 06:19] LABS: MAGNESIUM 1.9 mg/dL (1.8-2.4); PHOSPHORUS 3.3 mg/dL (2.5-4.9)
[2017-03-05] MEDS: ONDANSETRON 4 MG/2 ML VIAL IM/IVP PRN ×2 (06:25→13:52)
--- NOTE | 2017-03-05 06:25 | NUR ---
NAUSEATED, MEDICATED WITH ZOFRAN 4 MG. IVP BY GINA TRENT.
[2017-03-05] MEDS: PANTOPRAZOLE 40 MG TABEC PO SCH (06:32)
--- NOTE | 2017-03-05 07:30 | NUR ---
RECEIVED REPORT FROM PM NURSE FOR CONTINUITY OF CARE. PT AAO. RESP EVEN AND UNLABORED. NO S/S OF DISTRESS, RESTLESSNESS, OR SOB. IV INTACT, NO REDNESS OR SWELLING NOTED. SKIN IS WARM AND DRY, SCAB ON THE RT KNEE, AND MULTIPLE PURPLE SKIN DISCOLORATION ON UPPER EXTREMITIES NOTED. PT DENIES ANY DISCOMFORT AT THIS TIME. PLAN OF CARE DISCUSSED WITH PT, VERBALIZED UNDERSTANDING. SAFETY MEASURES IN PLACED, CALL LIGHT WITHIN REACH, SIDE RAILS UP, BED LOCKED IN LOW POSITION. WILL CONTINUE TO MONITOR.
[2017-03-05 08:00] VITALS: BP 102/86
[2017-03-05] MEDS ORDERED: ALPRAZolam 0.5 MG TAB PO PRN (08:10)
[2017-03-05] MEDS ORDERED: MECLIZINE 25 MG TAB PO PRN (08:15)
[2017-03-05] MEDS: amLODIPine 5 MG TAB PO SCH ×2 (09:00→09:25)
--- NOTE | 2017-03-05 09:20 | NUR ---
PT C/O 11/09 PAIN, MEDICATED PT PER MD ORDER. NO S/S OF DISTRESS. PT DENIES ANY FURTHER NEEDS AT THIS TIME. WILL CONTINUE TO MONITOR.
[2017-03-05] MEDS: HYDROcodone/APAP 7.5/325 MG 1 TAB PO PRN ×2 (09:24→13:52)
[2017-03-05] MEDS: METOPROLOL SUCCINATE 50 MG TABER PO SCH (09:25)
[2017-03-05] MEDS: LACTOBACILLUS RHAMNOSUS GG 1 EACH CAP PO SCH (09:26)
[2017-03-05] MEDS: FAMOTIDINE 20 MG TAB PO SCH ×2 (09:26→21:37)
[2017-03-05] MEDS: SODIUM CHLORIDE 1 GM TAB PO SCH ×3 (09:52→17:07)
--- NOTE | 2017-03-05 11:00 | NUR ---
PT'S SON AT BEDSIDE.
[2017-03-05 11:36] LABS: ANION GAP 12.2 (8-16); CARBON DIOXIDE 25.9 mmol/L (21-32); CHLORIDE 90 mmol/L (98-107); CREATININE 0.7 mg/dL (0.6-1.3); GLUCOSE 103 mg/dL (74-106); POTASSIUM 4.1 mmol/L (3.5-5.1); UREA NITROGEN, BLOOD 21 mg/dL (7-18)
[2017-03-05 11:38] LABS: SODIUM SERUM 124 mmol/L (136-145)
[2017-03-05 12:00] VITALS: BP 118/63
--- NOTE | 2017-03-05 13:10 | NUR ---
PT RESTING IN BED QUIETLY. NO S/S OF DISTRESS, SOB, OR RESTLESSNESS. RESP EVEN AND UNLABORED. SAFETY MEASURES IN PLACED. WILL CONTINUE TO MONITOR.
--- NOTE | 2017-03-05 14:30 | NUR ---
PT UP IN CHAIR. DENIES PAIN OR DISCOMFORT. RESP EVEN AND UNLABORED. NO S/S OF DISTRESS. SAFETY MEASURES IN PLACED. WILL CONTINUE TO MONITOR.
[2017-03-05] MEDS ORDERED: NACL 0.9% 500 ML IV SCH (15:15)
[2017-03-05 16:00] VITALS: BP 119/77
--- NOTE | 2017-03-05 17:00 | NUR ---
PT SITTING IN BED. RESP EVEN AND UNLABORED. NO S/S OF DISTRESS. DENIES PAIN OF DISCOMFORT AT THIS TIME. SAFETY MEASURES IN PLACED. WILL CONTINUE TO MONITOR.
--- NOTE | 2017-03-05 19:34 | NUR ---
ENDORSED CARE TO NURSE JOSEPH. PT IS IN STABLE CONDITION.
--- NOTE | 2017-03-05 19:35 | NUR ---
RECD. RESTING IN BED, AWAKE, A/OX4. RESPIRATION EVEN AND UNLABORED, IV OF NS INFUSING AT 100 ML/HR, RIGHT FOREARM G20, SALINE LOCK AT THE RIGHT AC G22, PATENT AND INTACT. PLAN OF CARE FOR THE SHIFT DISCUSSED. VERBALIZED UNDERSTANDING. DENIES PAIN 0/10.
--- NOTE | 2017-03-05 19:35 | NUR ---
Patient's Plan of Care was discussed and reviewed with FORENSIC PSYCHOLOGIST: JOSEPH PENDLETON
[2017-03-05 20:00] VITALS: BP 111/50
[2017-03-05] MEDS: SIMVASTATIN 20 MG TAB PO SCH (21:37)
[2017-03-05] MEDS: ACETAMINOPHEN 325 MG TAB PO PRN (22:15)
--- NOTE | 2017-03-05 22:15 | NUR ---
WITH ANXIETY, MEDICATED WITH XANAX 0.5 MG. PO ORDERED.
--- NOTE | 2017-03-05 22:30 | NUR ---
IV OF NS FINISHED. INFORMED FIRMWARE ENGINEER TAYLOR, PATIENT IS READY FOR BLOOD DRAW. WILL COME AFTER DONE WITH ER TASK.
[2017-03-05 22:58] LABS: ANION GAP 10.8 (8-16); CARBON DIOXIDE 27.2 mmol/L (21-32); CHLORIDE 95 mmol/L (98-107); GLUCOSE 118 mg/dL (74-106); SODIUM SERUM 129 mmol/L (136-145)
[2017-03-05 22:59] LABS: CREATININE 0.6 mg/dL (0.6-1.3); UREA NITROGEN, BLOOD 20 mg/dL (7-18)
--- NOTE | 2017-03-05 23:15 | NUR ---
NO ANXIETY NOTED, SLEEPING COMFORTABLY IN BED.
--- NOTE | 2017-03-05 23:30 | NUR ---
LAB RESULT - SODIUM INCREASED FROM 123 THIS MORNING TO 129.
[2017-03-06] VITALS: BP 94/61
--- NOTE | 2017-03-06 00:30 | NUR ---
SLEEPING COMFORTABLY IN BED.
[2017-03-06 04:00] VITALS: BP 134/65
[2017-03-06] MEDS: PANTOPRAZOLE 40 MG TABEC PO SCH (06:07)
[2017-03-06 06:18] LABS: BASOPHILS # (AUTO) 0.2 K/uL (0.00-0.22); BASOPHILS % (AUTO) 3.1 % (0.0-2.0); EOSINOPHILS # (AUTO) 0.1 K/uL (0-0.4); EOSINOPHILS % (AUTO) 0.7 % (0.0-4.0); HEMATOCRIT 40.2 % (36-48); HEMOGLOBIN 13.7 g/dL (12.0-16.0); LYMPHOCYTES # (AUTO) 1.3 K/uL (2.5-16.5); LYMPHOCYTES % (AUTO) 17.1 % (20.5-51.1); MEAN CORPUSCULAR HEMOGLOBIN 34 pg (27-31); MEAN CORPUSCULAR HGB CONC 34 g/dL (33-37); MEAN CORPUSCULAR VOLUME 99 fL (80-94); MONOCYTES % (AUTO) 12.7 % (1.7-9.3); NEUTROPHILS # (AUTO) 5.2 K/uL (1.8-7.7); NEUTROPHILS % (AUTO) 66.4 % (42.2-75.2); PLATELET COUNT (AUTO) 343 K/uL (140-450); RED BLOOD CELL COUNT(AUTO) 4.06 MIL/uL (4.20-5.40); WHITE BLOOD COUNT (AUTO) 7.8 K/uL (4.8-10.8)
[2017-03-06 06:36] LABS: ANION GAP 11.1 (8-16); CARBON DIOXIDE 26.9 mmol/L (21-32); CHLORIDE 98 mmol/L (98-107); CREATININE 0.5 mg/dL (0.6-1.3); GLUCOSE 108 mg/dL (74-106); SODIUM SERUM 132 mmol/L (136-145); UREA NITROGEN, BLOOD 15 mg/dL (7-18)
[2017-03-06 06:39] LABS: MAGNESIUM 2.1 mg/dL (1.8-2.4); PHOSPHORUS 3.3 mg/dL (2.5-4.9)
--- NOTE | 2017-03-06 07:00 | NUR ---
ABLE TO SLEPT WELL. CONDITION REMAIN STABLE. WILL ENDORSE TO AM NURSE FOR CONTINUITY OF CARE.
--- NOTE | 2017-03-06 07:15 | NUR ---
RECEIVED BEDSIDE REPORT FROM CHIEF COMPRESSOR STATION ENGINEER RN. PT AWAKE AND ALERT, NO SIGNS OF ACUTE DISTRESS. BOWEL SOUNDS ACTIVE IN ALL 4 QUADRANTS. SKIN INTACT WITH BRUISING TO BILATERAL UPPER EXTREMITIES. IV PATENT AND ASYMPTOMATIC. AMBULATORY WITH BRP. PT ON ROOM AIR. PT DENIES PAIN. RE-ORIENTED TO HOSPITAL AND TO UNIT, PT VERBALIZED UNDERSTANDING. BED IN LOW POSITION WITH BILATERAL HALF SIDE RAILS UP, CALL LIGHT WITHIN REACH. WILL CONTINUE TO MONITOR.
[2017-03-06 08:00] VITALS: BP 125/74
[2017-03-06] MEDS: SODIUM CHLORIDE 1 GM TAB PO SCH ×2 (08:00→13:50)
[2017-03-06] MEDS: METOPROLOL SUCCINATE 50 MG TABER PO SCH (08:00)
[2017-03-06] MEDS: amLODIPine 5 MG TAB PO SCH (08:01)
[2017-03-06] MEDS: LACTOBACILLUS RHAMNOSUS GG 1 EACH CAP PO SCH (08:02)
[2017-03-06] MEDS: FAMOTIDINE 20 MG TAB PO SCH (08:02)
--- NOTE | 2017-03-06 09:00 | NUR ---
PT SITTING UPRIGHT IN CHAIR JUST FINISHED PHYSICAL THERAPY, NO SIGNS OF ACUTE DISTRESS. PATIENT DENIES PAIN AT THIS TIME. WILL CONTINUE TO MONITOR.
--- NOTE | 2017-03-06 10:58 | NUR ---
PATIENT RESTING COMFORTABLY IN BED, NO SIGNS OF ACUTE DISTRESS. BED IN LOW POSITION WITH BILATERAL HALF SIDE RAILS UP, CALL LIGHT WITHIN REACH. WILL CONTINUE TO MONITOR.
[2017-03-06] MEDS ORDERED: OMEP20TC12 PO (11:28)
[2017-03-06] MEDS ORDERED: SAL1 PO (11:28)
[2017-03-06] MEDS ORDERED: VITB12 PO (11:56)
[2017-03-06] MEDS ORDERED: FOLI0.4T40 PO (11:56)
--- NOTE | 2017-03-06 11:57 | NUR ---
03/06/17 RD INITIAL ASSESSMENT COMPLETED PLEASE REFER TO NUTRITION ASSESSMENT UNDER CARE ACTIVITY FOR ESTIMATED NUTRITIONAL NEEDS. 1. CONTINUE 60G CONSISTENT CARBOHYDRATE DIET 2. ADD THIAMINE & FOLIC ACID SUPPLEMENT 1X/DAILY 3. RD TO FOLLOW-UP 3-5 DAYS, MODERATE RISK SUYAPA MANZANO, SHALINI
[2017-03-06 12:00] VITALS: BP 108/60
--- NOTE | 2017-03-06 12:08 | NUR ---
CM NOTE SPOKE W/ JOSE LUIS FROM [facility] ([phone]). PROVIDED REQUEST FOR F[facility]; WILL BE IN CONTACT W/ REP SOON. NO ESTIMATED TIME OF DELIVERY.
--- NOTE | 2017-03-06 12:38 | NUR ---
RECEIVED DISCHARGE ORDER FROM DR PEDRAZA, NOTED, WILL CARRY OUT.
--- NOTE | 2017-03-06 13:54 | NUR ---
CM NOTE CALLED OUT TO [facility] FOR UPDATE ON FWW DELIVERY. CHELLE W/ ABBI.
--- NOTE | 2017-03-06 14:00 | NUR ---
PATIENT AWAKE AND ALERT, NO SIGNS OF ACUTE DISTRESS. EDUCATED PATIENT AND PATIENT SON ON DISCHARGE INSTRUCTIONS INCLUDING NEW PRESCRIPTIONS, FOLLOW UP DOCTOR APPOINTMENTS, RESUMING LIGHT ACTIVITY, DIET AND SIGNS AND SYMPTOMS OF INFECTION AND/OR WORSENING CONDITION, PT VERBALIZED UNDERSTANDING. PATIENT SIGNED ALL DISCHARGE PAPERWORK. PATIENT DENIES PAIN. REMOVED IV AND WOOD HEEL CEMENTER AND CUT OFF WRIST BANDS. WHEELED PATIENT OUT TO FRONT LOBBY TO GO HOME VIA PRIVATE AUTO WITH SON.
--- NOTE | 2017-03-06 14:37 | NUR ---
NANCY NOTE ORDER & FACE SHEET FAXED TO [facility] / FAX# [phone], ATTN: DESTINI
--- NOTE | 2017-03-07 09:11 | NUR ---
RECEIVED A REQUEST FROM [facility] ABOUT THE WALKER. I SPOKE WITH JULIAN AT [facility] AND FAXED FURTHER DOCUMENTATION TO HIM. AT [phone].
--- NOTE | 2017-03-11 16:26 | NUR ---
10:45 SPOKE TO PATIENTS SON DARLENE PER DARLENE PATIENT WS USING A CANE AND DID NOT NEED A WALKER .
== END 2017-03-06 14:00 | disposition home or self-care (01) | DRG 640 ==
LOC: MED 22:23 → MIC 03-03 02:58 → MTU 03-04 13:10
PROVIDERS: ADMIT Student in an Organized Health Care Education/Training Program; ATTEND Student in an Organized Health Care Education/Training Program
DX: E87.1 Hypo-osmolality and hyponatremia (principal); N17.0 Acute kidney failure with tubular necrosis; D68.59 Other primary thrombophilia; R56.9 Unspecified convulsions; E83.42 Hypomagnesemia; E87.8 Other disorders of electrolyte and fluid balance, not elsewhere classified; I10 Essential (primary) hypertension; D72.829 Elevated white blood cell count, unspecified; S60.221A Contusion of right hand, initial encounter; F10.10 Alcohol abuse, uncomplicated; E87.6 Hypokalemia; J45.909 Unspecified asthma, uncomplicated; E78.5 Hyperlipidemia, unspecified; E78.00 Pure hypercholesterolemia, unspecified; Y90.9 Presence of alcohol in blood, level not specified; K21.9 Gastro-esophageal reflux disease without esophagitis; R73.03 Prediabetes; I16.0 Hypertensive urgency; F43.9 Reaction to severe stress, unspecified; S60.222A Contusion of left hand, initial encounter; X58.XXXA Exposure to other specified factors, initial encounter; K57.90 Diverticulosis of intestine, part unspecified, without perforation or abscess without bleeding; F41.1 Generalized anxiety disorder; Z88.6 Allergy status to analgesic agent; Z98.84 Bariatric surgery status; Y93.89 Activity, other specified; Y92.89 Other specified places as the place of occurrence of the external cause; Y99.8 Other external cause status
CPT/HCPCS: 36415; 70450; 80048; 81001; 82533; 82948; 83036; 83735; 83930; 83935; 84100; 84133; 84300; 84436; 84439; 84443; 84479; 85025; 85610; 85730; 87081; 93005; 93976; 96360; 97110; 97116; 97530; 99291; C9113; J1885; J1940; J2270; J2405; J3480; J3490; J7030; Q0092

== ENCOUNTER 2017-03-17 10:48 | Emergency (ER) | payer OTHER, MEDICAID ==
[~2017-03-17] VITALS: Ht 149.9 cm; Wt 66.8 kg
[~2017-03-17 10:48] MED LIST changes: +FOLI0.4T40 PO; -LACT10CA PO; -METO100T9 PO; -NITR100C7 PO; +OMEP20TC12 PO; +SAL1 PO; +VITB12 PO
[2017-03-17 11:07] VITALS: BP 152/72
--- NOTE | 2017-03-17 11:50 | NUR ---
PT AMBULATED TO ER BED #11.
--- NOTE | 2017-03-17 11:57 | NUR ---
71/F PRESENT TO ER C/O HIGH BLOOD PRESSURE AND DIZZINESS x TODAY. PT STATES SHE HAS BEEN FEELING DIZZY FOR 2 WEEKS NOW. PT DENIES N/V. PT STATES SHE WAS AT PMD OFFICE THIS AM AND WAS REFFERED TO ED FOR FURTHER EVALUATION. PAIN 5/10 HEADACHE NON-RADIATING. AAOx4, PERRLA, BREATHING EVEN AND UNLABORED. ERMD NOTIFIED OF PATIENT STATUS.
--- NOTE | 2017-03-17 11:58 | NUR ---
EPatient being evaluated by physician at bedside.
[2017-03-17 12:26] LABS: BASOPHILS # (AUTO) 0.3 K/uL (0.00-0.22); BASOPHILS % (AUTO) 3.1 % (0.0-2.0); EOSINOPHILS # (AUTO) 0.1 K/uL (0-0.4); EOSINOPHILS % (AUTO) 1.2 % (0.0-4.0); HEMATOCRIT 38.7 % (36-48); LYMPHOCYTES # (AUTO) 1.5 K/uL (2.5-16.5); LYMPHOCYTES % (AUTO) 14.9 % (20.5-51.1); MEAN CORPUSCULAR HEMOGLOBIN 34 pg (27-31); MEAN CORPUSCULAR HGB CONC 34 g/dL (33-37); MEAN CORPUSCULAR VOLUME 99 fL (80-94); MONOCYTES # (AUTO) 0.9 K/uL (0.8-1.0); MONOCYTES % (AUTO) 8.6 % (1.7-9.3); NEUTROPHILS # (AUTO) 7.3 K/uL (1.8-7.7); NEUTROPHILS % (AUTO) 72.2 % (42.2-75.2); PLATELET COUNT (AUTO) 342 K/uL (140-450); RED CELL DISTRIBUTION WIDTH 13.3 % (11.6-13.7); WHITE BLOOD COUNT (AUTO) 10.1 K/uL (4.8-10.8)
[2017-03-17 12:46] LABS: PROTHROMBIN TIME 10.2 secs (10.8-13.4)
[2017-03-17 12:47] LABS: ANION GAP 6.1 (8-16); CARBON DIOXIDE 31.6 mmol/L (21-32); CHLORIDE 108 mmol/L (98-107); CREATININE 0.5 mg/dL (0.6-1.3); GLUCOSE 97 mg/dL (74-106); POTASSIUM 3.7 mmol/L (3.5-5.1); SODIUM SERUM 142 mmol/L (136-145); UREA NITROGEN, BLOOD 10 mg/dL (7-18)
[2017-03-17 12:53] LABS: ALBUMIN 3.5 g/dL (3.4-5.0); ASPARTATE AMINOTRANSFERASE 20 U/L (15-37); TOTAL BILIRUBIN 0.3 mg/dL (0.0-1.0)
[2017-03-17 13:56] VITALS: BP 137/80
--- NOTE | 2017-03-17 13:56 | NUR ---
Patient discharged with v/s stable. Written and verbal after care instructions given and explained. Patient verbalized understanding. Ambulatory with steady gait. All questions addressed prior to discharge. Advised to follow up with PMD.
== END 2017-03-17 13:56 | disposition home or self-care (01) ==
LOC: MED 10:48
DX: I10 Essential (primary) hypertension (principal); F41.9 Anxiety disorder, unspecified; J45.909 Unspecified asthma, uncomplicated; K21.9 Gastro-esophageal reflux disease without esophagitis; Z79.899 Other long term (current) drug therapy; Z88.5 Allergy status to narcotic agent
CPT/HCPCS: 36415; 71010; 80053; 81002; 81025; 83880; 84484; 85025; 85610; 85730; 93005; 99285

== ENCOUNTER 2017-12-29 12:04 | Emergency (ER) | payer MEDICARE, MEDICAID ==
[~2017-12-29] VITALS: Ht 157.5 cm; Wt 74.8 kg
--- NOTE | 2017-12-29 12:04 | NUR ---
PATIENT WHEELCHAIR ASSISTED TO BED 6.
[2017-12-29 12:22] VITALS: BP 139/93
[2017-12-29] MEDS ORDERED: NACL 0.9% 1,000 ML IV ONE (12:25)
--- NOTE | 2017-12-29 12:34 | NUR ---
72 YO F BIBA W/ ALOC, NAUSEA, VOMITTING, POSS ETOH. SON ACCOMPANIED MOTHER FOR ALOC, PT MOVING ALL 4 EXTREMITIES. PT ALERT TO NAME ONLY. GCS 12, REPONDS TO VOICE, STRONG EXTREMITY MOVEMENT X 4. RESPONDS TO PAINFUL STIMULI. RESTLESS. PT CONFUSED. PERRLA INTACT. CMS INTACT. RR EVEN AND UNLABORED. LUNGS CLEAR. AAOX3. ABD SOFT, NON-TENDER. ER MD NOTIFIED. PT NEEDS MET. SAFETY PRECAUTIONS IN PLACE. WILL CONTINUE TO MONITOR.
[2017-12-29] MEDS ORDERED: LORazepam 2 MG/ML VIAL IM PRN (12:50)
--- NOTE | 2017-12-29 12:50 | NUR ---
PT WILL NOT STOP MOVING. XRAY UNABLE TO TAKE XRAY OF CHEST. UNABLE TO START A WORKING IV. LAB UNABLE TO DRAW THE LABS AFTER 3X DRAW ATTEMPT. CT UNABLE TO OBTAIN SCAN BECAUSE PT MOVEMENT. ER MD NOTIFIED.ATIVAN TO BE ORDERED/GIVEN. SAFETY PRECAUTIONS IN PLACE. WILL CONTINUE TO MONITOR.
[2017-12-29] MEDS ORDERED: LORazepam 2 MG/ML VIAL ONE (12:55)
--- NOTE | 2017-12-29 13:40 | NUR ---
pt asleep on [facility] at this time w/ vss, rr even and unlabored. pt does have sinus tachycardia per bedside monitoring. pt remains alert and oriented (aaox3) to baseline when we received her, pt acts lethargic, but does open her eyes and speak in mumbled speech when spoken to. pt responds to painful stimuli. er md notified. safety precautions in place, will continue to monitor.
[2017-12-29 14:06] LABS: BASOPHILS % (AUTO) 0.2 % (0.0-2.0); EOSINOPHILS % (AUTO) 0.1 % (0.0-4.0); HEMATOCRIT 44.6 % (36-48); HEMOGLOBIN 15.4 g/dL (12.0-16.0); LYMPHOCYTES # (AUTO) 0.9 K/uL (2.5-16.5); LYMPHOCYTES % (AUTO) 5.8 % (20.5-51.1); MEAN CORPUSCULAR HEMOGLOBIN 31 pg (27-31); MEAN CORPUSCULAR HGB CONC 35 g/dL (33-37); MONOCYTES # (AUTO) 1.5 K/uL (0.8-1.0); MONOCYTES % (AUTO) 9.8 % (1.7-9.3); NEUTROPHILS # (AUTO) 13.3 K/uL (1.8-7.7); NEUTROPHILS % (AUTO) 84.1 % (42.2-75.2); PLATELET COUNT (AUTO) 322 K/uL (140-450); RED BLOOD CELL COUNT(AUTO) 4.91 MIL/uL (4.20-5.40); RED CELL DISTRIBUTION WIDTH 13.1 % (11.6-13.7); WHITE BLOOD COUNT (AUTO) 15.7 K/uL (4.8-10.8)
[2017-12-29 14:45] LABS: ALBUMIN 4.3 g/dL (3.4-5.0); ANION GAP 15.3 (8-16); ASPARTATE AMINOTRANSFERASE 36 U/L (15-37); CARBON DIOXIDE 26.2 mmol/L (21-32); CHLORIDE 73 mmol/L (98-107); CREATININE 0.6 mg/dL (0.6-1.3); GLUCOSE 110 mg/dL (74-106); POTASSIUM 3.5 mmol/L (3.5-5.1); TOTAL BILIRUBIN 1.9 mg/dL (0.0-1.0); UREA NITROGEN, BLOOD 6 mg/dL (7-18)
--- NOTE | 2017-12-29 14:45 | NUR ---
pt remains in same state as she has been in since arrival, but very calm and resting. aaox3. sinus tachycardia. responds to verbal stimuli w/ mumbled speech. son, Baljit Kimbrough left his number ([phone]) with me at this time to contact him if any changes occur with his mother. safety precautions in place. will continue to monitor.
[2017-12-29 14:51] LABS: SODIUM SERUM 111 mmol/L (136-145)
[2017-12-29 14:53] LABS: AMYLASE 39 U/L (25-115); LIPASE 128 U/L (73-393)
[2017-12-29 15:16] LABS: APPEARANCE,URINE CLEAR (CLEAR); BILIRUBIN,URINE NEGATIVE (NEGATIVE); BLOOD, URINE NEGATIVE (NEGATIVE); COLOR,URINE YELLOW (YELLOW); LEUKOCYTE ESTERASE ,URINE NEGATIVE (NEGATIVE); NITRITE, URINE NEGATIVE (NEGATIVE); UGLUCOSE NEGATIVE (NEGATIVE)
[2017-12-29] MEDS ORDERED: NACL 3% 500 ML IV STA (15:25)
[2017-12-29 15:28] LABS: BARBITURATE, URINE NEG. ng/ml (NEG <=200); BENZODIAZEPINE, URINE POS. ng/mL (NEG <=200); CANNABINOID, URINE NEG. ng/mL (NEG <=50); COCAINE, URINE NEG. ng/mL (NEG <=300); OPIATE, URINE NEG. ng/mL (NEG <=2000); PHENCYCLIDINE SCREEN,URINE NEG. ng/mL (NEG <=25)
--- NOTE | 2017-12-29 15:50 | NUR ---
pt aaox3 at this time. in same state as prior note, but speech clearer at this time. er md notified. pt needs met. safety precautions in place. vss w/ sinus tachycardia, rr even and unlabored. safety precautions in place. will continue to monitor.
--- NOTE | 2017-12-29 17:00 | NUR ---
spoke to pt son, Baljit at this time. he reports that he will be back shortly. pt made aware. pt remains in the same state, aaox3. er md notified. pt needs met, rr even and unlabored. safety precautions in place. will continue to monitor.
--- NOTE | 2017-12-29 18:07 | NUR ---
pt asleep on [facility] at this time w/ vss, sinus tachy, rr even and unlabored. safety precautions in place. will continue to monitor.
--- NOTE | 2017-12-29 18:52 | NUR ---
pt continue to sleep on [facility] at this time in same state (aaox3). vss, sinus tachycardia remains at this time. rr even and unlabored. safety precautions in place. er md notified. pt needs met.
--- NOTE | 2017-12-29 19:28 | NUR ---
Eddi diez in [facility] - 12/29/17 at 1938 by [id number] Transfer of care at this time. Report given to GINA Lara.
--- NOTE | 2017-12-29 19:34 | NUR ---
PT HYPERTONIC SOLUTION SHUT OFF AT THIS TIME BECAUSE PT HEART RATE INCREASED. EARLE GILMORE NOTIFIED AND GINA PEREZ NOTIFIED.
--- NOTE | 2017-12-29 19:36 | NUR ---
Heart rate now at 118, back to baseline sinus tachycardia. Pt bp 124/76
--- NOTE | 2017-12-29 19:38 | NUR ---
Transfer of care at this time. Report given to GINA Lara.
--- NOTE | 2017-12-29 20:18 | NUR ---
SPOKE WITH DAUGHTER IN LAW REGARDING PATIENT. DAUGHTER IN LAW ASKS TO BE NOTIFIED OF TRANSFER TO [place]. WILL FOLLOW UP WITH DARLENE, PATIENTS SON, WHEN TRANSFER IS INITIATED.
--- NOTE | 2017-12-29 20:55 | NUR ---
[facility] HERE FOR PATIENT PICKUP AND TRASNFER TO [place]. [facility] GIVEN REPORT AT THIS TIME. PATIENT SLEEPING BUT AROUNSABLE TO TOUCH. IV SITE PATENT AND INTACT AT THIS TIME.
[2017-12-29 21:35] VITALS: BP 124/76
== END 2017-12-29 21:20 | disposition short-term general hospital (02) ==
LOC: MED 12:04
DX: E87.1 Hypo-osmolality and hyponatremia (principal); J45.909 Unspecified asthma, uncomplicated; K21.9 Gastro-esophageal reflux disease without esophagitis; I10 Essential (primary) hypertension; E78.5 Hyperlipidemia, unspecified; Z88.5 Allergy status to narcotic agent; Z79.899 Other long term (current) drug therapy
CPT/HCPCS: 36415; 70450; 71045; 80053; 80305; 81003; 82150; 83690; 83880; 84484; 85025; 85610; 85730; 93005; 96360; 96361; 96372; 99291; G0482; J2060; J3490; J7030; Q0092; C1758

== ENCOUNTER 2018-06-10 12:40 | Inpatient (IN) | payer OTHER, MEDICAID ==
[~2018-06-10] VITALS: Ht 160 cm; Wt 64.4 kg
[~2018-06-10 12:40] MED LIST changes: -SAL1 PO; +SODI100076 PO
[2018-06-10 12:46] VITALS: BP 181/78
--- NOTE | 2018-06-10 12:55 | NUR ---
72 YO F BIB SON W/ C/O 01/09 "ALL OVER" INTERMITTENT NON RADIATING PROVOKED BY COUGH CHEST PAIN, ANXIETY. PT DENIES FEVER. PT REPORTS HEADACHES, DIZZINESS, AND NAUSEA. PT IS AOX4 TO PERSON, PLACE, TIME, AND SITUATION. RR ARE EVEN AND UNLABORED. ABD SOFT AND NON TENDER. PT DENIES ANY V/D. NAD. PT APPEARS ANXIOUS AND RESTLESSNESS. NAD. VSS. WILL CONTINUE TO MONITOR.
--- NOTE | 2018-06-10 13:00 | NUR ---
er md castro by bedside examining pt
[2018-06-10] MEDS ORDERED: NACL 0.9% 1,000 ML IV ONE (13:10)
[2018-06-10 13:38] LABS: BASOPHILS # (AUTO) 0.1 K/uL (0.00-0.22); BASOPHILS % (AUTO) 0.7 % (0.0-2.0); EOSINOPHILS # (AUTO) 0.1 K/uL (0-0.4); HEMATOCRIT 38.8 % (36-48); HEMOGLOBIN 12.9 g/dL (12.0-16.0); LYMPHOCYTES # (AUTO) 1.9 K/uL (2.5-16.5); LYMPHOCYTES % (AUTO) 20.7 % (20.5-51.1); MEAN CORPUSCULAR HEMOGLOBIN 31 pg (27-31); MEAN CORPUSCULAR HGB CONC 33 g/dL (33-37); MEAN CORPUSCULAR VOLUME 92.4 fL (80-94); MONOCYTES # (AUTO) 0.9 K/uL (0.8-1.0); MONOCYTES % (AUTO) 9.5 % (1.7-9.3); NEUTROPHILS # (AUTO) 6.3 K/uL (1.8-7.7); NEUTROPHILS % (AUTO) 68.1 % (42.2-75.2); PLATELET COUNT (AUTO) 375 K/uL (140-450); RED CELL DISTRIBUTION WIDTH 14.8 % (11.6-13.7); WHITE BLOOD COUNT (AUTO) 9.3 K/uL (4.8-10.8)
--- NOTE | 2018-06-10 13:48 | NUR ---
PT AMBULATED WITH MINIMIAL ASSISTANCE TO RESTROOM WITH STEADY GAIT. RETURNED TO RM 11 WITHOUT INCIDENT.
[2018-06-10 13:50] LABS: APPEARANCE,URINE SLIGHTLY CLOUDY (CLEAR); BILIRUBIN,URINE NEGATIVE (NEGATIVE); BLOOD, URINE NEGATIVE (NEGATIVE); COLOR,URINE YELLOW (YELLOW); LEUKOCYTE ESTERASE ,URINE TRACE (NEGATIVE); NITRITE, URINE NEGATIVE (NEGATIVE); PH,URINE 7.5 (5.0-9.0); UGLUCOSE NEGATIVE (NEGATIVE)
[2018-06-10 13:53] LABS: RBC,URINE 0-5 (RARE) /HPF (0-5); WBC,URINE 0-5 (RARE) /HPF (0-5)
[2018-06-10 14:00] LABS: ALBUMIN 3.6 g/dL (3.4-5.0); ASPARTATE AMINOTRANSFERASE 21 U/L (15-37); CARBON DIOXIDE 24.8 mmol/L (21-32); CHLORIDE 88 mmol/L (98-107); CREATININE 0.5 mg/dL (0.6-1.3); GLUCOSE 108 mg/dL (74-106); POTASSIUM 4.1 mmol/L (3.5-5.1); TOTAL BILIRUBIN 0.4 mg/dL (0.0-1.0); UREA NITROGEN, BLOOD 8 mg/dL (7-18)
[2018-06-10 14:03] LABS: ANION GAP 13.3 (8-16); SODIUM SERUM 122 mmol/L (136-145)
--- NOTE | 2018-06-10 14:16 | NUR ---
patient with no complaints. all needs met at this time. nad. vss. will continue to monitor.
[2018-06-10] MEDS ORDERED: KETOROLAC 15 MG/ML VIAL IVP PRN (14:45)
[2018-06-10] MEDS ORDERED: ZOLPIDEM 5 MG TAB PO PRN (14:45)
[2018-06-10] MEDS ORDERED: ONDANSETRON 4 MG/2 ML VIAL IM/IVP PRN (14:45)
[2018-06-10] MEDS ORDERED: DOCUSATE SODIUM 100 MG GELCAP PO PRN (14:45)
[2018-06-10] MEDS ORDERED: INSULIN LISPRO SLIDING SCALE 100 UNITS/ML VIAL SUBQ PRN (14:50)
[2018-06-10] MEDS ORDERED: DEXTROSE 50% 50 ML SYR IVP PRN (14:50)
--- NOTE | 2018-06-10 15:00 | NUR ---
Patient will be admitted to care of [facility]. Admited to Tele. Will go to room 110B. Belongings list completed. Bedside report to Eva FUENTES.
[2018-06-10 15:15] VITALS: BP 164/81
--- NOTE | 2018-06-10 15:15 | NUR ---
RECEIVED REPORT FROM ACIDIZER RN. PT C/O ANXIETY. HX BRADLEY. DENIES PAIN AND DISCOMFORT. DENIES CP, NAUSEA, LIGHTHEADEDNESS. BP ELEVATED. PT APPEARS IN EMOTIONAL DISTRESS. SKIN INTACT. RESPIRATIONS EVEN AND UNLABORED. HEART RHYTHM REGULAR. AMBULATORY WITH CANE. ALL SAFETY PRECAUTIONS IN PLACE, WILL CONTINUE TO MONITOR.
[2018-06-10] MEDS ORDERED: LORazepam 2 MG/ML VIAL IM/IVP PRN (15:30)
--- NOTE | 2018-06-10 15:42 | NUR ---
ASKED PHARMACY TO VERIFY ATIVAN SOON POSSIBLE. PT C/O OF A LOT OF ANXIETY.
[2018-06-10 15:53] LABS: PROTHROMBIN TIME 9.9 secs (10.8-13.4)
[2018-06-10 15:58] LABS: MAGNESIUM 1.9 mg/dL (1.8-2.4); PHOSPHORUS 3.5 mg/dL (2.5-4.9); THYROID STIMULATING HORMONE 3.93 uIU/mL (0.34-3.74)
--- NOTE | 2018-06-10 16:06 | NUR ---
ADMINISTERED ATIVAN FOR PT C/O ANXIETY.
[2018-06-10] MEDS: NACL 0.9% 1,000 ML IV SCH ×2 (16:08→23:58)
[2018-06-10] MEDS: BLOOD GLUCOSE MONITORING 1 DEV DEV FS SCH ×2 (16:20→20:36)
[2018-06-10] MEDS ORDERED: DICYCLOMINE 10 MG CAP PO SCH (17:00)
--- NOTE | 2018-06-10 17:06 | NUR ---
PT IS VERY DROWSY BUT AROUSABLE BY TOUCH, ONE HOUR AFTER ATIVAN IVP.
[2018-06-10] MEDS ORDERED: PANT40EC PO (17:20)
[2018-06-10] MEDS ORDERED: FURO-570 PO (17:20)
[2018-06-10] MEDS ORDERED: FLUT1DSK2 IH (17:20)
[2018-06-10] MEDS ORDERED: SPIR25TA20 PO (17:20)
--- NOTE | 2018-06-10 17:44 | NUR ---
PT IS AROUSABLE BY TOUCH BUT CONTINUES TO BE VERY DROWSY. FALLING ASLEEP SHE IS TALKING. UNABLE TO USE COMMUNICATIONS PLANNER PHONE TO OBTAIN CONSENT FOR RELEASE OF MEDICAL RECORDS FROM [facility] AT THIS TIME.
[2018-06-10] MEDS ORDERED: FUROSEMIDE 40 MG TAB PO SCH (18:00)
[2018-06-10 18:53] LABS: SODIUM SERUM 126 mmol/L (136-145)
[2018-06-10 18:54] LABS: ANION GAP 9.5 (8-16); CHLORIDE 93 mmol/L (98-107); GLUCOSE 104 mg/dL (74-106); POTASSIUM 3.5 mmol/L (3.5-5.1); UREA NITROGEN, BLOOD 6 mg/dL (7-18)
[2018-06-10 18:55] LABS: CREATININE 0.4 mg/dL (0.6-1.3)
--- NOTE | 2018-06-10 19:20 | NUR ---
ENDORSED POC TO PAIN COORDINATOR RN. PT IN STABLE CONDITION. ENDORSED TO OBTAIN AUTHORIZATION FOR MEDICAL RECORDS REQUEST AND ORTHOSTAT HYPOTENSION IF POSSIBLE.
--- NOTE | 2018-06-10 19:21 | NUR ---
REPORT RECEIVED FROM AM NURSE AT BEDSIDE. PT IN STABLE CONDITION. AAOX1. PT DROWSY AFTER BEEN GIVEN ATIVAN. FLACC 0. NO SOB. AFEBRILE. IV SITE L AC 20G RUNNING NS@100ML/HR PATENT AND INTACT. SKIN WARM, DRY, AND INTACT WITH NO OPEN WOUNDS. BED LOCKED IN LOW POSITION. CALL ARTHUR WITHIN REACH. SAFETY PRECAUTIONS IN PLACE. ALL NEEDS MET AT THIS TIME.
[2018-06-10 20:00] VITALS: BP 107/56
[2018-06-10] MEDS: LISINOPRIL 10 MG TAB PO SCH (20:36)
--- NOTE | 2018-06-10 20:36 | NUR ---
BS 101. NO INSULIN COVERAGE NEEDED. ZESTRIL HELD DUE TO DECREASED BP OF 107/56. NOTIFIED. ASKED TO RECHECK BP DUE TO HER BP IN ED WAS ELEVATED TO THE 180+.
--- NOTE | 2018-06-10 20:45 | NUR ---
BP REASSESSED. 110/67. ORDERED TO HOLD ZESTRIL.
[2018-06-10] MEDS ORDERED: ATORVASTATIN 20 MG TAB PO SCH (21:00)
[2018-06-10 22:43] LABS: ANION GAP 9.9 (8-16); CARBON DIOXIDE 26.9 mmol/L (21-32); CHLORIDE 95 mmol/L (98-107); CREATININE 0.4 mg/dL (0.6-1.3); GLUCOSE 103 mg/dL (74-106); POTASSIUM 3.8 mmol/L (3.5-5.1); SODIUM SERUM 128 mmol/L (136-145); UREA NITROGEN, BLOOD 6 mg/dL (7-18)
--- NOTE | 2018-06-10 22:45 | NUR ---
PT SLEEPING COMFORTABLY IN BED BUT AROUSEABLE. NO S/S OF DISTRESS NOTED. WILL CONTINUE TO MONITOR.
[2018-06-11] VITALS (7 sets, daily range): BP systolic 103–149; BP diastolic 51–76
--- NOTE | 2018-06-11 01:00 | NUR ---
PT SLEEPING COMFORTABLY. NO S/S OF DISTRESS NOTED. RESPIRATIONS EVEN, UNLABORED, AND WNL. WILL CONTINUE TO MONITOR.
[2018-06-11 03:07] LABS: CHLORIDE 96 mmol/L (98-107); POTASSIUM 4.7 mmol/L (3.5-5.1); SODIUM SERUM 130 mmol/L (136-145)
[2018-06-11 03:08] LABS: ANION GAP 11.3 (8-16); CARBON DIOXIDE 27.4 mmol/L (21-32); CREATININE 0.5 mg/dL (0.6-1.3); GLUCOSE 99 mg/dL (74-106); UREA NITROGEN, BLOOD 6 mg/dL (7-18)
--- NOTE | 2018-06-11 03:40 | NUR ---
PT SLEEPING COMFORTABLY. NO S/S OF DISTRESS. BREATHING EVEN, UNLABORED, AND WNL. ALL NEEDS MET AT THIS TIME.
[2018-06-11] MEDS ORDERED: PANTOPRAZOLE 40 MG TABEC PO SCH (06:30)
[2018-06-11] MEDS: BLOOD GLUCOSE MONITORING 1 DEV DEV FS SCH ×4 (06:41→20:05)
--- NOTE | 2018-06-11 06:41 | NUR ---
BS 83. NO INSULIN COVERAGE NEEDED.
[2018-06-11 07:15] LABS: BASOPHILS % (AUTO) 0.6 % (0.0-2.0); EOSINOPHILS # (AUTO) 0.1 K/uL (0-0.4); EOSINOPHILS % (AUTO) 0.9 % (0.0-4.0); HEMATOCRIT 38.5 % (36-48); HEMOGLOBIN 12.9 g/dL (12.0-16.0); LYMPHOCYTES # (AUTO) 1.8 K/uL (2.5-16.5); LYMPHOCYTES % (AUTO) 23.8 % (20.5-51.1); MEAN CORPUSCULAR HEMOGLOBIN 31 pg (27-31); MEAN CORPUSCULAR HGB CONC 33 g/dL (33-37); MEAN CORPUSCULAR VOLUME 93.2 fL (80-94); MONOCYTES # (AUTO) 0.7 K/uL (0.8-1.0); MONOCYTES % (AUTO) 8.6 % (1.7-9.3); NEUTROPHILS # (AUTO) 5.1 K/uL (1.8-7.7); NEUTROPHILS % (AUTO) 66.1 % (42.2-75.2); PLATELET COUNT (AUTO) 368 K/uL (140-450); RED BLOOD CELL COUNT(AUTO) 4.14 MIL/uL (4.20-5.40); WHITE BLOOD COUNT (AUTO) 7.7 K/uL (4.8-10.8)
--- NOTE | 2018-06-11 07:25 | NUR ---
REPORT GIVEN TO AM NURSE AT BEDSIDE. PT IN STABLE CONDITION.
--- NOTE | 2018-06-11 07:26 | NUR ---
RECEIVED REPORT FROM FINANCIAL SALES REPRESENTATIVE NURSE. PATIENT LYING DOWN IN BED SLEEPING, AROUSABLE BY VOICE. NO DISTRESS NOTED. DENIES ANY PAIN. AAOX3, CALM, COOPERATIVE, SKIN COLOR APPROPRIATE TO ETHNICITY, WARM TO TOUCH. SKIN IS INTACT. IV SITE INTACT, PATENT, AND INFUSING IVF PER MD ORDERS. RESPIRATIONS EVEN, UNLABORED, ON ROOM AIR. ABLE TO AMBULATE TO BATHROOM AND BACK TO BED WITH ASSISTANCE. SAFETY MEASURES IN PLACE, CALL LIGHT WITHIN REACH. WILL CONTINUE TO MONITOR.
--- NOTE | 2018-06-11 08:26 | NUR ---
PATIENT HAS BEEN SCREENED AND CATEGORIZED MODERATE NUTRITION RISK. PATIENT WILL BE SEEN WITHIN 3-5 DAYS OF ADMISSION. 06/13/18 06/15/[address]
[2018-06-11] MEDS ORDERED: amLODIPine 5 MG TAB PO SCH (09:00)
[2018-06-11] MEDS ORDERED: FUROSEMIDE 40 MG TAB PO SCH (09:00)
[2018-06-11] MEDS ORDERED: CYANOCOBALAMIN 100 MCG TAB PO SCH (09:00)
[2018-06-11] MEDS ORDERED: METOPROLOL SUCCINATE 50 MG TABER PO SCH (09:00)
[2018-06-11] MEDS: FUROSEMIDE 40 MG TAB PO SCH (09:25)
[2018-06-11] MEDS: FAMOTIDINE 20 MG TAB PO SCH (09:25)
[2018-06-11] MEDS: SPIRONOLACTONE 25 MG TAB PO SCH (09:26)
[2018-06-11] MEDS: amLODIPine 5 MG TAB PO SCH (09:26)
--- NOTE | 2018-06-11 09:30 | NUR ---
PATIENT SITTING ON CHAIR AT BEDSIDE. NO DISTRES NOTED. SCHEDULED MEDICATIONS DUE GIVEN. WILL CONTINUE TO MONITOR.
[2018-06-11 09:51] LABS: ANION GAP 13.1 (8-16); CARBON DIOXIDE 25.1 mmol/L (21-32); CHLORIDE 96 mmol/L (98-107); CREATININE 0.5 mg/dL (0.6-1.3); GLUCOSE 86 mg/dL (74-106); POTASSIUM 4.2 mmol/L (3.5-5.1); SODIUM SERUM 130 mmol/L (136-145); UREA NITROGEN, BLOOD 6 mg/dL (7-18)
[2018-06-11 09:59] LABS: CHOL/HDL RATIO 3.9 (1-4.5)
--- NOTE | 2018-06-11 10:15 | NUR ---
DENNY CATHETER INSERTED USING STERILE TECHNIQUE PER MD ORDERS. PATIENT TOLERATED WELL. 23 HOUR SODIUM URINE COLLECTION STARTED AT THIS TIME. WILL CONTINUE TO MONITOR.
[2018-06-11] MEDS ORDERED: PNEUMOCOCCAL VACCINE 23 MCG/0.5 ML VIAL IMVAC SCH (12:20)
[2018-06-11] MEDS ORDERED: INFLUENZA VIRUS VACCINE QUAD 0.5 ML SYR IMVAC PRN (12:20)
[2018-06-11] MEDS: NACL 0.9% 1,000 ML IV SCH (13:11)
--- NOTE | 2018-06-11 13:30 | NUR ---
PATIENT SITTING DOWN IN BED WATCHING TV. NO DISTRESS NOTED. DENIES ANY PAIN. WILL CONTINUE TO MONITOR.
--- NOTE | 2018-06-11 15:37 | NUR ---
PATIENT SITTING ON BEDSIDE CHAIR WATCHING TV. NO DISTRESS NOTED. DENIES ANY PAIN. WILL CONTINUE TO MONITOR.
--- NOTE | 2018-06-11 17:51 | NUR ---
PATIENT SITTING IN BED TALKING WITH SON AT BEDSIDE. SCHEDULED MEDICATIONS DUE GIVEN. WILL CONTINUE TO MONITOR.
--- NOTE | 2018-06-11 18:30 | NUR ---
ORTHOSTATIC BLOOD PRESSURES TAKEN. PATIENT TOLERATED WELL. WILL CONTINUE TO MONITOR.
--- NOTE | 2018-06-11 19:25 | NUR ---
GAVE REPORT TO LEAD NURSE NURSE FOR CONTINUITY OF CARE. PATIENT IN STABLE CONDITION.
--- NOTE | 2018-06-11 19:25 | NUR ---
RECEIVED BEDSIDE REPORT FROM GINA RENEE, PATIENT SITTING ON CHAIR, ON RA, NO SIGNS OF ACUTE DISTRESS, IV IN LEFT AC 20G INFUSING NS AT 60 ML/HR. BG 146 NO COVERAGE NEEDED, NOTED BP 103/67 HR 91. PATIENT DENIES PAIN, EXPLAINED PLAN OF CARE UPDATED BOARD, CALL LIGHT WITHIN REACH, WILL GIVE DUE MEDICATIONS. Addendum: 06/11/18 at 2255 by Rosario Grace RN DENNY CATH IN PLACE, DRAINING CLEAR YELLOW URINE, 24 HOURS CREATININE MELIZA CONTINUING TO BE COLLECTED.
--- NOTE | 2018-06-11 19:50 | NUR ---
EXPLAINED TO PATIENT OF NEED TO WEAR YELLOW GOWN FOR SAFETY, PATIENT STATED " NO ITS OKAY". WILL CONTINUE TO MONITOR.
[2018-06-11] MEDS: ATORVASTATIN 20 MG TAB PO SCH (20:10)
[2018-06-11] MEDS: LISINOPRIL 10 MG TAB PO SCH (20:11)
--- NOTE | 2018-06-11 20:12 | NUR ---
HELD DUE LISINOPRIL BP 103/67. WILL CONTINUE TO MONITOR.
--- NOTE | 2018-06-11 22:20 | NUR ---
PATIENT ASLEEP IN BED NO SIGNS OF DISTRESS, BED ALARM ON, WILL CONTINUE TO MONITOR.
[2018-06-12] VITALS: BP 110/75
[2018-06-12] MEDS: ACETAMINOPHEN 325 MG TAB PO PRN ×2 (00:14→14:09)
--- NOTE | 2018-06-12 00:14 | NUR ---
PATIENT C/O KLEIN, MEDICATED WITH TYLENOL ACCORDING TO MD ORDER.
--- NOTE | 2018-06-12 00:42 | NUR ---
CHANGED PATIENTS DRESSING, SECURED WITH TAPE.
--- NOTE | 2018-06-12 02:32 | NUR ---
PATIENT RESTING IN BED, NO SIGNS OF ACUTE DISTRESS, WILL CONTINUE TO MONITOR.
--- NOTE | 2018-06-12 04:00 | NUR ---
V/S TAKEN NOTED BP 145/85, PATIENT C/O KLEIN 6/10, PATIENT IS RESTLESS AND UNABLE TO FALL BACK ASLEEP, WILL MEDICATE ACCORDING TO MD ORDER.
--- NOTE | 2018-06-12 04:30 | NUR ---
900 ML URINE ACCIDENTLY THROWN AWAY, WILL RESTART 24 HOUR URINE COLLECT.
[2018-06-12] MEDS: NACL 0.9% 1,000 ML IV SCH (04:55)
[2018-06-12 06:10] LABS: BASOPHILS # (AUTO) 0.1 K/uL (0.00-0.22); BASOPHILS % (AUTO) 0.8 % (0.0-2.0); EOSINOPHILS # (AUTO) 0.1 K/uL (0-0.4); EOSINOPHILS % (AUTO) 1.5 % (0.0-4.0); HEMATOCRIT 36.9 % (36-48); HEMOGLOBIN 12.3 g/dL (12.0-16.0); LYMPHOCYTES # (AUTO) 1.7 K/uL (2.5-16.5); LYMPHOCYTES % (AUTO) 25.2 % (20.5-51.1); MEAN CORPUSCULAR HEMOGLOBIN 31 pg (27-31); MEAN CORPUSCULAR HGB CONC 33 g/dL (33-37); MEAN CORPUSCULAR VOLUME 93.2 fL (80-94); MONOCYTES # (AUTO) 0.6 K/uL (0.8-1.0); MONOCYTES % (AUTO) 9.7 % (1.7-9.3); NEUTROPHILS # (AUTO) 4.2 K/uL (1.8-7.7); NEUTROPHILS % (AUTO) 62.8 % (42.2-75.2); PLATELET COUNT (AUTO) 337 K/uL (140-450); RED BLOOD CELL COUNT(AUTO) 3.96 MIL/uL (4.20-5.40); RED CELL DISTRIBUTION WIDTH 15.1 % (11.6-13.7); WHITE BLOOD COUNT (AUTO) 6.7 K/uL (4.8-10.8)
[2018-06-12] MEDS: BLOOD GLUCOSE MONITORING 1 DEV DEV FS SCH ×4 (06:30→20:36)
--- NOTE | 2018-06-12 06:30 | NUR ---
BLOOD GLUCOSE 94 NO COVERAGE NEEDED.
[2018-06-12 07:11] LABS: CARBON DIOXIDE 27.1 mmol/L (21-32); CHLORIDE 101 mmol/L (98-107); CREATININE 0.5 mg/dL (0.6-1.3); GLUCOSE 95 mg/dL (74-106); POTASSIUM 4.1 mmol/L (3.5-5.1); SODIUM SERUM 135 mmol/L (136-145); UREA NITROGEN, BLOOD 12 mg/dL (7-18)
--- NOTE | 2018-06-12 07:21 | NUR ---
ENDORSED PATIENT TO DAY SHIFT NURSE, PATIENT STABLE.
--- NOTE | 2018-06-12 07:22 | NUR ---
RECEIVED REPORT FROM MARKETING INTELLIGENCE MANAGER NURSE. PATIENT LYING DOWN IN BED WATCHING TV. NO DISTRESS NOTED. DENIES ANY PAIN. AAOX3, CALM, COOPERATIVE, SKIN COLOR APPROPRIATE TO ETHNICITY, WARM TO TOUCH. SKIN IS INTACT. IV SITE INTACT, PATENT, AND INFUSING IVF PER MD ORDERS. RESPIRATIONS EVEN, UNLABORED, ON ROOM AIR. ABLE TO AMBULATE TO BATHROOM AND BACK TO BED WITH ASSISTANCE. SAFETY MEASURES IN PLACE, CALL LIGHT WITHIN REACH. WILL CONTINUE TO MONITOR.
[2018-06-12 08:00] VITALS: BP 161/83
--- NOTE | 2018-06-12 09:05 | NUR ---
Correctional Substance Abuse Counselor Note: I informed patient would like to go [address] her [place] [address] [facility] [place] [address] [facility], she does not want to be transfer to a retirement facility (short term).
[2018-06-12] MEDS: amLODIPine 5 MG TAB PO SCH (09:09)
[2018-06-12] MEDS: SPIRONOLACTONE 25 MG TAB PO SCH (09:09)
[2018-06-12] MEDS: FAMOTIDINE 20 MG TAB PO SCH (09:10)
[2018-06-12] MEDS: FUROSEMIDE 40 MG TAB PO SCH (09:10)
--- NOTE | 2018-06-12 09:15 | NUR ---
PATIENT SITTING IN BED COMFORTABLY ABOUT TO WORK WITH PHYSICAL THERAPISTS AT BEDSIDE. SCHEDULED MEDICATIONS DUE GIVEN. WILL CONTINUE TO MONITOR.
[2018-06-12] MEDS ORDERED: busPIRone 5 MG TAB PO SCH (11:05)
--- NOTE | 2018-06-12 13:44 | NUR ---
Copy Machine Operator Note: Per patient, she is in agreement with receiving services from [facility] . I faxed inquiry to [facility].
--- NOTE | 2018-06-12 14:10 | NUR ---
PATIENT COMPLAINS OF A HEADACHE, TYLENOL GIVEN. WILL CONTINUE TO MONITOR.
--- NOTE | 2018-06-12 14:48 | NUR ---
Resaw Machine Operator Note: Per from Gregoria from [facility] , they can accept referral, they will send a nurse to patient's son Baljit's home either on Friday06/14/18 or Friday06/15/18, patient's nurse Siddharth made aware.
[2018-06-12 16:00] VITALS: BP 143/64
[2018-06-12] MEDS: ALBUTEROL SULFATE/IPRATROPIU 3 ML SOL IH PRN ×2 (17:21→19:53)
--- NOTE | 2018-06-12 18:30 | NUR ---
PATIENT SITTING IN BED EATING DINNER. SCHEDULED MEDICATIONS DUE GIVEN. WILL CONTINUE TO MONITOR.
--- NOTE | 2018-06-12 19:40 | NUR ---
GAVE REPORT TO BENZENE OPERATOR NURSE FOR CONTINUITY OF CARE. PATIENT IN STABLE CONDITION.
--- NOTE | 2018-06-12 19:41 | NUR ---
RECEIVED BEDSIDE REPORT FROM DAY SHIFT NURSE THELMA RN, PT STABLE, NO DISTRESS NOTED, IV TO L AC 20G PATENT, INTACT, INFUSING NS @ 60ML/HR, INFUSING WELL, PT ON ROOM AIR, NO SOB, PT HAS NO C/O PAIN AT THIS MOMENT, INITIAL ASSESSMENT DONE, ALL SAFETY PRECAUTION MET, CALL LIGHT WITHIN REACH, WILL CONTINUE TO MONITOR.
[2018-06-12] MEDS: busPIRone 5 MG TAB PO SCH (20:37)
[2018-06-12] MEDS: ATORVASTATIN 20 MG TAB PO SCH (20:37)
[2018-06-12] MEDS: LISINOPRIL 10 MG TAB PO SCH (20:37)
--- NOTE | 2018-06-12 20:37 | NUR ---
DUE MEDICATION ADMINISTERED, PT TOLERATED WELL, NO DISTRESS NOTED, CALL LIGHT WITHIN REACH, WILL CONTINUE TO MONITOR.
--- NOTE | 2018-06-12 22:00 | NUR ---
CALLED DR. CAREY REGARDING PT STATED HAVING HARD TIME SLEEPING, STATED UNDERSTANDING AND WILL ORDER MEDICATION. WILL CONTINUE WITH ORDERS.
[2018-06-12] MEDS ORDERED: traZODone 50 MG TAB PO SCH (22:30)
--- NOTE | 2018-06-12 23:40 | NUR ---
PT AMBULATED TO BATHROOM AND BACK TO BED, TOLERATED WELL, CHECKED PT V/S WITHIN PT BASELINE, CALL LIGHT WITHIN REACH, WILL CONTINUE TO MONITOR.
[2018-06-13] VITALS: BP 146/67
[2018-06-13] MEDS: NACL 0.9% 1,000 ML IV SCH (00:42)
--- NOTE | 2018-06-13 01:30 | NUR ---
IV LEAKING, NEW IV INSERTED 24 G TO R WRIST, IV 20G TO L AC TAKEN OUT, CATH INTACT, PT TOLERATED WELL, NO DISTRESS NOTED, CALL LIGHT WITHIN REACH, WILL CONTINUE TO MONITOR.
--- NOTE | 2018-06-13 04:20 | NUR ---
PT AMBULATED TO RESTROOM THEN BACK TO BED, TOLERATED WELL, CALL LIGHT WITHIN REACH, WILL CONTINUE TO MONITOR.
[2018-06-13] MEDS: BLOOD GLUCOSE MONITORING 1 DEV DEV FS SCH ×2 (06:05→11:57)
--- NOTE | 2018-06-13 07:26 | NUR ---
ENDORSED PT TO DAY SHIFT NURSE THELMA RN, PT STABLE, NO DISTRESS NOTED, CALL LIGHT WITHIN REACH.
--- NOTE | 2018-06-13 07:27 | NUR ---
RECEIVED REPORT FROM EQUITY DIRECTOR NURSE. PATIENT LYING DOWN IN BED WATCHING TV. NO DISTRESS NOTED. DENIES ANY PAIN. AAOX3, CALM, COOPERATIVE, SKIN COLOR APPROPRIATE TO ETHNICITY, WARM TO TOUCH. SKIN IS INTACT. IV SITE INTACT, PATENT, AND INFUSING IVF PER MD ORDERS. RESPIRATIONS EVEN, UNLABORED, ON ROOM AIR. ABLE TO AMBULATE TO BATHROOM AND BACK TO BED WITH ASSISTANCE. SAFETY MEASURES IN PLACE, CALL LIGHT WITHIN REACH. WILL CONTINUE TO MONITOR.
[2018-06-13 07:39] LABS: BASOPHILS % (AUTO) 0.7 % (0.0-2.0); EOSINOPHILS # (AUTO) 0.1 K/uL (0-0.4); EOSINOPHILS % (AUTO) 1.1 % (0.0-4.0); HEMATOCRIT 37.3 % (36-48); HEMOGLOBIN 12.3 g/dL (12.0-16.0); LYMPHOCYTES # (AUTO) 1.4 K/uL (2.5-16.5); LYMPHOCYTES % (AUTO) 21.1 % (20.5-51.1); MEAN CORPUSCULAR HEMOGLOBIN 31 pg (27-31); MEAN CORPUSCULAR HGB CONC 33 g/dL (33-37); MEAN CORPUSCULAR VOLUME 93.8 fL (80-94); MONOCYTES # (AUTO) 0.6 K/uL (0.8-1.0); MONOCYTES % (AUTO) 9.1 % (1.7-9.3); NEUTROPHILS # (AUTO) 4.6 K/uL (1.8-7.7); PLATELET COUNT (AUTO) 318 K/uL (140-450); RED BLOOD CELL COUNT(AUTO) 3.98 MIL/uL (4.20-5.40); RED CELL DISTRIBUTION WIDTH 15.1 % (11.6-13.7); WHITE BLOOD COUNT (AUTO) 6.7 K/uL (4.8-10.8)
[2018-06-13 08:00] VITALS: BP 168/70
[2018-06-13 08:23] LABS: ANION GAP 12.7 (8-16); CARBON DIOXIDE 25.9 mmol/L (21-32); CHLORIDE 101 mmol/L (98-107); CREATININE 0.4 mg/dL (0.6-1.3); GLUCOSE 104 mg/dL (74-106); POTASSIUM 3.6 mmol/L (3.5-5.1); SODIUM SERUM 136 mmol/L (136-145); UREA NITROGEN, BLOOD 10 mg/dL (7-18)
[2018-06-13 08:58] LABS: MAGNESIUM 1.9 mg/dL (1.8-2.4); PHOSPHORUS 3.5 mg/dL (2.5-4.9)
[2018-06-13] MEDS: busPIRone 5 MG TAB PO SCH (09:04)
[2018-06-13] MEDS: FAMOTIDINE 20 MG TAB PO SCH (09:05)
[2018-06-13] MEDS: FUROSEMIDE 40 MG TAB PO SCH (09:05)
[2018-06-13] MEDS: amLODIPine 5 MG TAB PO SCH (09:06)
[2018-06-13] MEDS: SPIRONOLACTONE 25 MG TAB PO SCH (09:06)
--- NOTE | 2018-06-13 09:06 | NUR ---
PATIENT LYING DOWN IN BED ON THE PHONE. NO DISTRESS NOTED. SCHEDULED MEDICATIONS DUE GIVEN. WILL CONTINUE TO MONITOR.
[2018-06-13] MEDS: ALBUTEROL SULFATE/IPRATROPIU 3 ML SOL IH PRN (09:44)
[2018-06-13] MEDS ORDERED: amLODIPine 5 MG TAB PO SCH (10:05)
[2018-06-13] MEDS ORDERED: LISI10TA11 PO (10:23)
[2018-06-13] MEDS ORDERED: AMLO5TAB4 PO (10:23)
[2018-06-13] MEDS ORDERED: FAMO20TA13 PO (10:23)
[2018-06-13] MEDS ORDERED: BUS5 PO (10:23)
[2018-06-13] MEDS ORDERED: ATOR20TA40 PO (10:23)
[2018-06-13] MEDS ORDERED: [UNRECOGNIZED DRUG - CODE] (10:24)
[2018-06-13] MEDS ORDERED: SODI100076 PO (10:35)
--- NOTE | 2018-06-13 11:30 | NUR ---
PATIENT SITTING IN BED ON THE PHONE. NO DISTRESS NOTED. WILL CONTINUE TO MONITOR.
--- NOTE | 2018-06-13 13:50 | NUR ---
DISCHARGE INSTRUCTIONS PROVIDED TO PATIENT/SON AT BEDSIDE IN JAPANESE, PATIENT PREFERS SON TO COOK HELPER DESSERT INSTEAD OF USING TRANSLATION PHONE OFFERED TO PATIENT. INSTRUCTIONS ON FOLLOW-UP VISIT, NEW/CHANGED MEDICATIONS REGIMEN, DIET REGIMEN, DISEASE PROCESS/MANAGEMENT OF HYPONATREMIA, AND HOME HEALTH NURSE TO BE FOLLOWING UP AT HOME. ANSWERED ALL OF PATIENT/SON'S QUESTIONS REGARDING DISCHARGE. PATIENT/SON VERBALIZED COMPLETE UNDERSTANDING. ID BANDS REMOVED. IV SITE REMOVED WITH MINIMAL BLOOD AND LUMEN COMPLETELY INTACT. PATIENT ALREADY DRESSED AND READY TO GO. ESCORTED PATIENT DOWN TO LOBBY VIA STEADY AMBULATION. PATIENT DISCHARGED AT THIS TIME TO HOME VIA PRIVATE VEHICLE IN STABLE CONDITION.
[2018-06-13] MEDS ORDERED: traZODone 50 MG TAB PO SCH (21:00)
== END 2018-06-13 13:50 | disposition home health service (06) | DRG 391 ==
LOC: MED 12:40 → MTU 14:49
PROVIDERS: ADMIT General Practice; ATTEND General Practice
DX: K21.9 Gastro-esophageal reflux disease without esophagitis (principal); G93.41 Metabolic encephalopathy; E87.1 Hypo-osmolality and hyponatremia; N39.0 Urinary tract infection, site not specified; I16.0 Hypertensive urgency; E87.8 Other disorders of electrolyte and fluid balance, not elsewhere classified; E02 Subclinical iodine-deficiency hypothyroidism; E78.5 Hyperlipidemia, unspecified; J45.909 Unspecified asthma, uncomplicated; F41.1 Generalized anxiety disorder; I25.10 Atherosclerotic heart disease of native coronary artery without angina pectoris; G47.00 Insomnia, unspecified; E83.51 Hypocalcemia; I11.9 Hypertensive heart disease without heart failure; R73.03 Prediabetes
CPT/HCPCS: 36415; 70450; 71045; 80048; 80053; 81001; 82948; 83036; 83690; 83735; 83880; 84100; 84134; 84443; 84484; 85025; 85610; 85730; 87081; 87086; 94640; 96360; 97110; 97116; 97530; 99285; J0696; J1815; J1885; J2060; J7030; J7060; J7620; Q0092

== ENCOUNTER 2019-02-15 07:32 | Emergency (ER) | payer OTHER, MEDICAID ==
[~2019-02-15] VITALS: Ht 149.9 cm; Wt 61.2 kg
[~2019-02-15 07:32] MED LIST changes: -ALPR0.5T2 PO; -AMLO2.5T6 PO; +AMLO5TAB6 PO; +ATOR20TA40 PO; -BEN10 PO; +BUS5 PO; +FAMO20TA13 PO; +FLUT1DSK2 IH; -FOLI0.4T40 PO; +FURO-570 PO; +LISI10TA11 PO; -METO-575 PO; -OMEP20TC12 PO; -ROSU10TA PO; +SPIR25TA20 PO; -VITB12 PO
[2019-02-15 07:38] VITALS: BP 104/68
--- NOTE | 2019-02-15 07:57 | NUR ---
C/O RIGHT KNEE PAIN UNRELIEVED BY OXYCONTIN S/P TOTAL KNEE REPLACEMENT SURGICAL INCISION COVERED WITH DRESSING WHICH REMAIN CLEAN AND INTACT---- HX---HTN, GERD, CVA (2018) NO DEFICITS, RX---METOPROLOL
--- NOTE | 2019-02-15 08:03 | NUR ---
AAO X4 CZECH SPEAKING PT BEING EVALUATED BY DR DOAN
[2019-02-15] MEDS ORDERED: fentaNYL 0.05 MG/ML VIAL IM ONE ×2 (08:10→11:10)
[2019-02-15] MEDS ORDERED: ONDANSETRON 4 MG ODT PO ONE ×2 (08:10→11:25)
--- NOTE | 2019-02-15 09:00 | NUR ---
TALKED TO PT'S SON DARLENE MI , UPDATED W/ STATUS
--- NOTE | 2019-02-15 11:29 | NUR ---
PT ABOUT TO BE D/C BUT C/O INCREASING PAIN. MEDICATED PER ORDER SON AT BEDSIDE
[2019-02-15 11:45] VITALS: BP 128/61
--- NOTE | 2019-02-15 11:45 | NUR ---
Patient discharged with v/s stable. Written and verbal after care instructions given and explained. Patient verbalized understanding. Wheel Chair Assisted to son's car. All questions addressed prior to discharge. Advised to follow up with PMD.
== END 2019-02-15 11:45 | disposition home or self-care (01) ==
LOC: MED 07:32
DX: G89.18 Other acute postprocedural pain (principal); M25.561 Pain in right knee; R42 Dizziness and giddiness; J45.909 Unspecified asthma, uncomplicated; K21.9 Gastro-esophageal reflux disease without esophagitis; I10 Essential (primary) hypertension; Z85.028 Personal history of other malignant neoplasm of stomach; Z79.899 Other long term (current) drug therapy; Z88.5 Allergy status to narcotic agent; Z96.651 Presence of right artificial knee joint
CPT/HCPCS: 93971; 96372; 99284; J3010; Q0092; Q0162

== ENCOUNTER 2019-02-23 07:04 | Inpatient (IN) | payer OTHER, MEDICAID ==
[~2019-02-23] VITALS: Ht 152.4 cm; Wt 67.1 kg
[2019-02-23 07:04] VITALS: BP 134/57
[2019-02-23] MEDS ORDERED: FAMOTIDINE 20 MG/2 ML VIAL IVP ONE (07:25)
[2019-02-23] MEDS ORDERED: NACL 0.9% 1,000 ML IV ONE (07:25)
[2019-02-23] MEDS ORDERED: ONDANSETRON 4 MG/2 ML VIAL IVP ONE (07:25)
[2019-02-23 08:06] LABS: BASOPHILS # (AUTO) 0.1 K/uL (0.00-0.22); BASOPHILS % (AUTO) 0.8 % (0.0-2.0); EOSINOPHILS # (AUTO) 0.3 K/uL (0-0.4); HEMATOCRIT 34.6 % (36-48); HEMOGLOBIN 11.8 g/dL (12.0-16.0); LYMPHOCYTES # (AUTO) 1.8 K/uL (2.5-16.5); LYMPHOCYTES % (AUTO) 21.2 % (20.5-51.1); MEAN CORPUSCULAR HEMOGLOBIN 32 pg (27-31); MEAN CORPUSCULAR HGB CONC 34 g/dL (33-37); MEAN CORPUSCULAR VOLUME 92.6 fL (80-94); MONOCYTES # (AUTO) 0.7 K/uL (0.8-1.0); MONOCYTES % (AUTO) 8.2 % (1.7-9.3); NEUTROPHILS # (AUTO) 5.8 K/uL (1.8-7.7); NEUTROPHILS % (AUTO) 66.8 % (42.2-75.2); PLATELET COUNT (AUTO) 593 K/uL (140-450); RED BLOOD CELL COUNT(AUTO) 3.74 MIL/uL (4.20-5.40); RED CELL DISTRIBUTION WIDTH 13.4 % (11.6-13.7); WHITE BLOOD COUNT (AUTO) 8.7 K/uL (4.8-10.8)
[2019-02-23 08:09] LABS: APPEARANCE,URINE CLEAR (CLEAR); BILIRUBIN,URINE NEGATIVE (NEGATIVE); BLOOD, URINE NEGATIVE (NEGATIVE); COLOR,URINE ORANGE (YELLOW); LEUKOCYTE ESTERASE ,URINE NEGATIVE (NEGATIVE); NITRITE, URINE POSITIVE (NEGATIVE); UGLUCOSE NEGATIVE (NEGATIVE)
[2019-02-23 08:20] LABS: ALBUMIN 3.1 g/dL (3.4-5.0); ASPARTATE AMINOTRANSFERASE 19 U/L (15-37); CARBON DIOXIDE 25.3 mmol/L (21-32); CHLORIDE 91 mmol/L (98-107); CREATININE 0.4 mg/dL (0.6-1.3); GLUCOSE 99 mg/dL (74-106); LIPASE 178 U/L (73-393); POTASSIUM 4.3 mmol/L (3.5-5.1); SODIUM SERUM 127 mmol/L (136-145); TOTAL BILIRUBIN 0.3 mg/dL (0.0-1.0); UREA NITROGEN, BLOOD 8 mg/dL (7-18)
[2019-02-23] MEDS ORDERED: KETOROLAC 15 MG/ML VIAL IVP ONE (08:35)
[2019-02-23 08:56] LABS: RBC,URINE 0-5 /HPF (0-5); WBC,URINE 0-5 /HPF (0-5)
[2019-02-23] MEDS ORDERED: DOCUSATE SODIUM 100 MG GELCAP PO PRN (09:45)
[2019-02-23 09:50] VITALS: BP 152/70
[2019-02-23] MEDS ORDERED: BISACODYL 10 MG SUPP RC SCH (10:00)
[2019-02-23] MEDS ORDERED: MEDICATION REC. PHARMACY CONS. 1 EA MISC MC PRN (10:20)
[2019-02-23 10:38] LABS: PROTHROMBIN TIME 10.2 secs (10.8-13.4)
[2019-02-23 11:31] LABS: MAGNESIUM 1.7 mg/dL (1.8-2.4); PHOSPHORUS 3.9 mg/dL (2.5-4.9); THYROID STIMULATING HORMONE 5.14 uIU/mL (0.34-3.74)
[2019-02-23] MEDS: ONDANSETRON 4 MG/2 ML VIAL IM/IVP PRN (12:40)
[2019-02-23] MEDS: NACL 0.9% 1,000 ML IV SCH (12:45)
[2019-02-23] MEDS: HYDROcodone/APAP 7.5/325 MG 1 TAB PO PRN (13:00)
[2019-02-23] MEDS ORDERED: PANTOPRAZOLE 40 MG INJ VIAL IVP SCH ×2 (13:30→21:00)
[2019-02-23] MEDS ORDERED: BUS5 PO (13:38)
[2019-02-23] MEDS ORDERED: AMLO5TAB PO (13:38)
[2019-02-23] MEDS ORDERED: FURO40TA9 PO (13:38)
[2019-02-23] MEDS ORDERED: FAMO-90 PO (13:38)
[2019-02-23] MEDS ORDERED: SPIR25TA PO (13:38)
[2019-02-23] MEDS ORDERED: FLUT1DSK2 IH (13:38)
[2019-02-23] MEDS ORDERED: ATOR20TA PO (13:38)
[2019-02-23] MEDS ORDERED: LISI10TA11 PO (13:38)
[2019-02-23] MEDS ORDERED: LORazepam 0.5 MG TAB PO SCH (14:30)
[2019-02-23] MEDS: ACETAMINOPHEN 325 MG TAB PO PRN (16:21)
[2019-02-23] MEDS: METOCLOPRAMIDE 10 MG/10 ML SYRP UDC GT SCH (16:58)
[2019-02-23] MEDS: MECLIZINE 25 MG TAB PO PRN (17:49)
[2019-02-23] MEDS ORDERED: ALUMINUM HYD/MAG/SIMETHICONE 30 ML UDC PO SCH (19:00)
[2019-02-23 20:00] VITALS: BP 146/85
[2019-02-23] MEDS ORDERED: SODIUM PHOSPHATE 118 ML ENEM RC SCH (20:00)
[2019-02-23] MEDS: KETOROLAC 15 MG/ML VIAL IVP PRN (20:05)
[2019-02-23] MEDS: ATORVASTATIN 20 MG TAB PO SCH (20:11)
[2019-02-23] MEDS ORDERED: LORazepam 2 MG/ML VIAL IVP PRN (22:30)
[2019-02-24] VITALS: BP 154/74
[2019-02-24] MEDS ORDERED: ALUMINUM HYD/MAG/SIMETHICONE 30 ML UDC PO SCH
[2019-02-24] MEDS ORDERED: DICYCLOMINE HCL LIQUID 10 MG/5 ML UDC PO SCH
[2019-02-24] MEDS: LIDOCAINE VISCOUS 2% 20 ML UDC PO SCH ×2 (00:44→23:31)
[2019-02-24] MEDS ORDERED: MAGNESIUM OXIDE 400 MG TAB PO SCH ×2 (01:00→11:20)
[2019-02-24] MEDS: LORazepam 1 MG TAB PO PRN ×2 (01:06→08:36)
[2019-02-24] MEDS: NACL 0.9% 1,000 ML IV SCH (02:40)
[2019-02-24 04:00] VITALS: BP 165/92
[2019-02-24] MEDS: ACETAMINOPHEN 325 MG TAB PO PRN ×2 (04:31→10:48)
[2019-02-24] MEDS: FAMOTIDINE 20 MG TAB PO SCH (06:00)
[2019-02-24 06:35] LABS: BASOPHILS # (AUTO) 0.1 K/uL (0.00-0.22); EOSINOPHILS # (AUTO) 0.2 K/uL (0-0.4); EOSINOPHILS % (AUTO) 2.3 % (0.0-4.0); HEMOGLOBIN 12.1 g/dL (12.0-16.0); LYMPHOCYTES # (AUTO) 1.9 K/uL (2.5-16.5); LYMPHOCYTES % (AUTO) 26.1 % (20.5-51.1); MEAN CORPUSCULAR HEMOGLOBIN 31 pg (27-31); MEAN CORPUSCULAR HGB CONC 35 g/dL (33-37); MEAN CORPUSCULAR VOLUME 90.8 fL (80-94); MONOCYTES # (AUTO) 0.5 K/uL (0.8-1.0); MONOCYTES % (AUTO) 7.2 % (1.7-9.3); NEUTROPHILS # (AUTO) 4.6 K/uL (1.8-7.7); NEUTROPHILS % (AUTO) 63.4 % (42.2-75.2); PLATELET COUNT (AUTO) 565 K/uL (140-450); RED BLOOD CELL COUNT(AUTO) 3.85 MIL/uL (4.20-5.40); RED CELL DISTRIBUTION WIDTH 13.2 % (11.6-13.7); WHITE BLOOD COUNT (AUTO) 7.2 K/uL (4.8-10.8)
[2019-02-24 07:16] LABS: MAGNESIUM 1.6 mg/dL (1.8-2.4); PHOSPHORUS 3.8 mg/dL (2.5-4.9)
[2019-02-24 07:34] LABS: ANION GAP 16.5 (8-16); CARBON DIOXIDE 21.9 mmol/L (21-32); CHLORIDE 85 mmol/L (98-107); CREATININE 0.4 mg/dL (0.6-1.3); GLUCOSE 104 mg/dL (74-106); POTASSIUM 3.4 mmol/L (3.5-5.1); UREA NITROGEN, BLOOD 6 mg/dL (7-18)
[2019-02-24 08:00] VITALS: BP 151/83
[2019-02-24 08:07] LABS: T4 (THYROXINE) 8.7 ug/dL (4.5-12.0)
[2019-02-24 08:28] LABS: SODIUM SERUM 120 mmol/L (136-145)
[2019-02-24] MEDS: METOCLOPRAMIDE 10 MG/10 ML SYRP UDC GT SCH ×2 (08:34→11:30)
[2019-02-24] MEDS: busPIRone 5 MG TAB PO SCH (08:34)
[2019-02-24] MEDS: amLODIPine 5 MG TAB PO SCH (08:35)
[2019-02-24] MEDS: LISINOPRIL 10 MG TAB PO SCH (08:35)
[2019-02-24] MEDS: LACTOBACILLUS RHAMNOSUS GG 1 EACH CAP PO SCH (08:36)
[2019-02-24] MEDS ORDERED: FUROSEMIDE 40 MG TAB PO SCH (09:00)
[2019-02-24] MEDS ORDERED: SPIRONOLACTONE 25 MG TAB PO SCH (09:00)
[2019-02-24] MEDS: MECLIZINE 25 MG TAB PO PRN (10:48)
[2019-02-24] MEDS ORDERED: SODIUM CHLORIDE 1 GM TAB PO SCH (11:06)
[2019-02-24] MEDS ORDERED: POTASSIUM CHLORIDE 10 MEQ TABER PO SCH (11:20)
[2019-02-24 12:00] VITALS: BP 101/56
[2019-02-24] MEDS ORDERED: DICYCLOMINE HCL LIQUID 20 MG, ALUMINUM HYD/MAG/SIMETHICONE 30 ML, LIDOCAINE VISCOUS 2% ... PO SCH ×3 (14:46)
[2019-02-24 16:00] VITALS: BP 97/53
[2019-02-24 17:31] LABS: CARBON DIOXIDE 24.8 mmol/L (21-32); CHLORIDE 88 mmol/L (98-107); CREATININE 0.6 mg/dL (0.6-1.3); GLUCOSE 103 mg/dL (74-106); POTASSIUM 3.8 mmol/L (3.5-5.1); SODIUM SERUM 122 mmol/L (136-145); UREA NITROGEN, BLOOD 7 mg/dL (7-18)
[2019-02-24] MEDS: METOCLOPRAMIDE 10 MG TAB PO SCH (17:44)
[2019-02-24] MEDS: HYDROcodone/APAP 7.5/325 MG 1 TAB PO PRN (18:44)
[2019-02-24] MEDS ORDERED: METOCLOPRAMIDE 10 MG TAB PO SCH (19:05)
[2019-02-24 20:00] VITALS: BP 101/55
[2019-02-24] MEDS: KETOROLAC 15 MG/ML VIAL IVP PRN (21:11)
[2019-02-24] MEDS: ATORVASTATIN 20 MG TAB PO SCH (21:11)
[2019-02-25] VITALS: BP 122/66
[2019-02-25 04:00] VITALS: BP 139/60
[2019-02-25] MEDS: KETOROLAC 15 MG/ML VIAL IVP PRN (05:35)
[2019-02-25] MEDS: ONDANSETRON 4 MG/2 ML VIAL IM/IVP PRN ×2 (05:40→08:36)
[2019-02-25] MEDS: FAMOTIDINE 20 MG TAB PO SCH (06:41)
[2019-02-25] MEDS: METOCLOPRAMIDE 10 MG TAB PO SCH ×3 (06:42→17:15)
[2019-02-25] MEDS: MECLIZINE 25 MG TAB PO PRN (06:49)
[2019-02-25 07:38] LABS: BASOPHILS # (AUTO) 0.1 K/uL (0.00-0.22); BASOPHILS % (AUTO) 0.8 % (0.0-2.0); EOSINOPHILS # (AUTO) 0.1 K/uL (0-0.4); EOSINOPHILS % (AUTO) 1.7 % (0.0-4.0); HEMATOCRIT 33.4 % (36-48); HEMOGLOBIN 11.4 g/dL (12.0-16.0); LYMPHOCYTES # (AUTO) 1.5 K/uL (2.5-16.5); LYMPHOCYTES % (AUTO) 20.9 % (20.5-51.1); MEAN CORPUSCULAR HEMOGLOBIN 31 pg (27-31); MEAN CORPUSCULAR HGB CONC 34 g/dL (33-37); MEAN CORPUSCULAR VOLUME 91.5 fL (80-94); MONOCYTES # (AUTO) 0.7 K/uL (0.8-1.0); MONOCYTES % (AUTO) 9.5 % (1.7-9.3); NEUTROPHILS # (AUTO) 4.9 K/uL (1.8-7.7); NEUTROPHILS % (AUTO) 67.1 % (42.2-75.2); PLATELET COUNT (AUTO) 591 K/uL (140-450); RED BLOOD CELL COUNT(AUTO) 3.65 MIL/uL (4.20-5.40); RED CELL DISTRIBUTION WIDTH 13.2 % (11.6-13.7); WHITE BLOOD COUNT (AUTO) 7.3 K/uL (4.8-10.8)
[2019-02-25 07:44] LABS: MAGNESIUM 1.8 mg/dL (1.8-2.4); PHOSPHORUS 4.4 mg/dL (2.5-4.9)
[2019-02-25 07:49] LABS: ANION GAP 16.3 (8-16); CARBON DIOXIDE 21.6 mmol/L (21-32); CHLORIDE 89 mmol/L (98-107); CREATININE 0.5 mg/dL (0.6-1.3); GLUCOSE 93 mg/dL (74-106); POTASSIUM 3.9 mmol/L (3.5-5.1); SODIUM SERUM 123 mmol/L (136-145); UREA NITROGEN, BLOOD 12 mg/dL (7-18)
[2019-02-25 08:00] VITALS: BP 163/71
[2019-02-25] MEDS: LACTOBACILLUS RHAMNOSUS GG 1 EACH CAP PO SCH (08:35)
[2019-02-25] MEDS: busPIRone 5 MG TAB PO SCH (08:35)
[2019-02-25] MEDS: LISINOPRIL 10 MG TAB PO SCH (08:36)
[2019-02-25] MEDS: amLODIPine 5 MG TAB PO SCH (08:39)
[2019-02-25] MEDS ORDERED: HYDROmorphone 1 MG/ML AMP IVP PRN (08:40)
[2019-02-25] MEDS ORDERED: MORPHINE SULFATE 2 MG/ML SYR IVP PRN (08:45)
[2019-02-25] MEDS ORDERED: SODIUM CHLORIDE 1 GM TAB PO SCH (09:00)
[2019-02-25] MEDS ORDERED: ALUMINUM HYD/MAG/SIMETHICONE 30 ML UDC PO SCH ×2 (09:09→16:20)
[2019-02-25 12:00] VITALS: BP 142/78
[2019-02-25 16:00] VITALS: BP 128/53
[2019-02-25] MEDS ORDERED: DICYCLOMINE HCL LIQUID 10 MG/5 ML UDC PO PRN (16:10)
[2019-02-25] MEDS ORDERED: LIDOCAINE VISCOUS 2% 20 ML UDC PO PRN (16:10)
[2019-02-25 16:11] LABS: CHLORIDE,URINE RANDOM 39 mmol/L (110-250); CREATININE,URINE RANDOM 336 mg/dL (30-125); URINE SODIUM, RANDOM 19 mmol/l (40-220)
[2019-02-25] MEDS ORDERED: AMITRIPTYLINE 10 MG TAB PO SCH (21:00)
[2019-02-25 21:45] VITALS: BP 139/78
[2019-02-25] MEDS: SUCRALFATE 1 GM TAB PO SCH (21:49)
[2019-02-25] MEDS: SODIUM CHLORIDE 1 GM TAB PO SCH (21:50)
[2019-02-25] MEDS: ATORVASTATIN 20 MG TAB PO SCH (21:50)
[2019-02-26 00:20] VITALS: BP 148/79
[2019-02-26] MEDS: LORazepam 1 MG TAB PO PRN (00:20)
[2019-02-26 04:00] VITALS: BP 146/79
[2019-02-26] MEDS: ALUMINUM HYD/MAG/SIMETHICONE 30 ML UDC PO PRN ×2 (04:31→18:53)
[2019-02-26] MEDS: METOCLOPRAMIDE 10 MG TAB PO SCH ×3 (06:34→17:12)
[2019-02-26] MEDS: FAMOTIDINE 20 MG TAB PO SCH (06:34)
[2019-02-26 08:00] VITALS: BP 134/74
[2019-02-26] MEDS: SODIUM CHLORIDE 1 GM TAB PO SCH ×2 (08:33→21:27)
[2019-02-26] MEDS: busPIRone 5 MG TAB PO SCH (08:36)
[2019-02-26] MEDS: amLODIPine 5 MG TAB PO SCH (08:36)
[2019-02-26] MEDS: LISINOPRIL 10 MG TAB PO SCH (08:37)
[2019-02-26] MEDS: LACTOBACILLUS RHAMNOSUS GG 1 EACH CAP PO SCH (08:37)
[2019-02-26] MEDS: SUCRALFATE 1 GM TAB PO SCH (08:37)
[2019-02-26] MEDS: METOPROLOL 25 MG TAB PO SCH ×2 (08:38→21:00)
[2019-02-26] MEDS: SENNA 8.6 MG TAB PO SCH ×4 (08:40→21:00)
[2019-02-26] MEDS ORDERED: SIMETHICONE 80 MG TAB.CHEW PO SCH (09:00)
[2019-02-26] MEDS ORDERED: METOPROLOL 25 MG TAB PO SCH (09:00)
[2019-02-26 11:05] LABS: BASOPHILS # (AUTO) 0.1 K/uL (0.00-0.22); BASOPHILS % (AUTO) 0.7 % (0.0-2.0); EOSINOPHILS # (AUTO) 0.2 K/uL (0-0.4); EOSINOPHILS % (AUTO) 1.9 % (0.0-4.0); HEMATOCRIT 36.5 % (36-48); HEMOGLOBIN 12.3 g/dL (12.0-16.0); LYMPHOCYTES # (AUTO) 1.4 K/uL (2.5-16.5); LYMPHOCYTES % (AUTO) 17.1 % (20.5-51.1); MEAN CORPUSCULAR HEMOGLOBIN 31 pg (27-31); MEAN CORPUSCULAR HGB CONC 34 g/dL (33-37); MEAN CORPUSCULAR VOLUME 91.9 fL (80-94); MONOCYTES # (AUTO) 0.8 K/uL (0.8-1.0); MONOCYTES % (AUTO) 9.5 % (1.7-9.3); NEUTROPHILS # (AUTO) 5.9 K/uL (1.8-7.7); NEUTROPHILS % (AUTO) 70.8 % (42.2-75.2); PLATELET COUNT (AUTO) 639 K/uL (140-450); RED BLOOD CELL COUNT(AUTO) 3.97 MIL/uL (4.20-5.40); RED CELL DISTRIBUTION WIDTH 13.3 % (11.6-13.7); WHITE BLOOD COUNT (AUTO) 8.3 K/uL (4.8-10.8)
[2019-02-26 12:00] VITALS: BP 132/74
[2019-02-26] MEDS ORDERED: SUCR1TAB56 PO (14:12)
[2019-02-26] MEDS ORDERED: METO25TA PO (14:12)
[2019-02-26] MEDS ORDERED: ELA10 PO (14:12)
[2019-02-26] MEDS ORDERED: SODI100076 PO (14:12)
[2019-02-26 15:34] VITALS: BP 109/65
[2019-02-26 16:13] LABS: MAGNESIUM 1.9 mg/dL (1.8-2.4); PHOSPHORUS 3.6 mg/dL (2.5-4.9)
[2019-02-26 17:38] LABS: ANION GAP 18.1 (8-16); CARBON DIOXIDE 21.8 mmol/L (21-32); CHLORIDE 92 mmol/L (98-107); CREATININE 0.5 mg/dL (0.6-1.3); GLUCOSE 82 mg/dL (74-106); POTASSIUM 3.9 mmol/L (3.5-5.1); SODIUM SERUM 128 mmol/L (136-145); UREA NITROGEN, BLOOD 9 mg/dL (7-18)
[2019-02-26] MEDS: POTASSIUM CHL 20 MEQ/NACL 0.9% 1,000 ML IV SCH (18:42)
[2019-02-26] MEDS: ACETAMINOPHEN 325 MG TAB PO PRN ×2 (18:54→21:30)
[2019-02-26 20:00] VITALS: BP 100/52
[2019-02-26] MEDS ORDERED: AMITRIPTYLINE 25 MG TAB PO SCH (21:00)
[2019-02-26] MEDS: ATORVASTATIN 20 MG TAB PO SCH (21:27)
[2019-02-27] VITALS: BP 122/62
[2019-02-27 00:10] LABS: FOLIC ACID 16.9 ng/mL (>3.0)
[2019-02-27 04:00] VITALS: BP 144/68
[2019-02-27] MEDS ORDERED: diphenhydrAMINE 50 MG/ML VIAL IVP SCH (06:30)
[2019-02-27] MEDS: POTASSIUM CHL 20 MEQ/NACL 0.9% 1,000 ML IV SCH (06:53)
[2019-02-27] MEDS ORDERED: PANTOPRAZOLE 40 MG TABEC PO SCH (07:30)
[2019-02-27] MEDS: busPIRone 5 MG TAB PO SCH (10:00)
[2019-02-27] MEDS: SODIUM CHLORIDE 1 GM TAB PO SCH (10:00)
[2019-02-27] MEDS: LACTOBACILLUS RHAMNOSUS GG 1 EACH CAP PO SCH (10:01)
[2019-02-27] MEDS: amLODIPine 5 MG TAB PO SCH (10:01)
[2019-02-27] MEDS: METOPROLOL 25 MG TAB PO SCH (10:02)
[2019-02-27] MEDS: SENNA 8.6 MG TAB PO SCH (10:03)
[2019-02-27] MEDS: LISINOPRIL 10 MG TAB PO SCH (10:03)
== END 2019-02-27 12:30 | DRG 640 ==
LOC: MED 07:04 → MMU 09:15
PROVIDERS: ADMIT General Practice; ATTEND General Practice
PROC: 05HY33Z Insertion of Infusion Device into Upper Vein, Percutaneous Approach (ICD-10-PCS; principal; 2019-02-24)
PROC: B54NZZA Ultrasonography of Left Upper Extremity Veins, Guidance (ICD-10-PCS; 2019-02-24)
DX: E87.1 Hypo-osmolality and hyponatremia (principal); G93.41 Metabolic encephalopathy; E44.1 Mild protein-calorie malnutrition; Z68.29 Body mass index [BMI] 29.0-29.9, adult; F41.1 Generalized anxiety disorder; E83.42 Hypomagnesemia; E87.6 Hypokalemia; I10 Essential (primary) hypertension; J45.909 Unspecified asthma, uncomplicated; K21.9 Gastro-esophageal reflux disease without esophagitis; K57.90 Diverticulosis of intestine, part unspecified, without perforation or abscess without bleeding; Z96.651 Presence of right artificial knee joint; M19.90 Unspecified osteoarthritis, unspecified site; E11.9 Type 2 diabetes mellitus without complications; E78.5 Hyperlipidemia, unspecified; E87.8 Other disorders of electrolyte and fluid balance, not elsewhere classified; K29.70 Gastritis, unspecified, without bleeding; Z88.5 Allergy status to narcotic agent; Z79.899 Other long term (current) drug therapy; Z85.028 Personal history of other malignant neoplasm of stomach; Z83.3 Family history of diabetes mellitus; Z82.49 Family history of ischemic heart disease and other diseases of the circulatory system; Z80.0 Family history of malignant neoplasm of digestive organs; Z91.14 Patient's other noncompliance with medication regimen
CPT/HCPCS: 36415; 36600; 70450; 71045; 71275; 74018; 80048; 80053; 81001; 82150; 82272; 82436; 82550; 82570; 82607; 82728; 82746; 82803; 82977; 83036; 83540; 83605; 83690; 83735; 83880; 83930; 83935; 84100; 84300; 84436; 84443; 84479; 84484; 85025; 85045; 85379; 85610; 85730; 87040; 87045; 87081; 87086; 89055; 92610; 93005; 93880; 93970; 96361; 96374; 96375; 97110; 97112; 97116; 97161-GP; 97530; 99285; C1751; J0696; J1200; J1644; J1885; J2060; J2270; J2405; J3490; J7030; J7060; J8597; Q0092; Q9967

== ENCOUNTER 2020-05-15 10:32 | Inpatient (IN) | payer OTHER, MEDICAID, SELFPAY ==
[~2020-05-15] VITALS: Ht 142.2 cm; Wt 67.6 kg
[~2020-05-15 10:32] MED LIST changes: +AMLO5TAB PO; -AMLO5TAB6 PO; +ATOR20TA PO; -ATOR20TA40 PO; +ELA10 PO; +FAMO-90 PO; -FAMO20TA13 PO; -FURO-570 PO; +METO25TA PO; -SPIR25TA20 PO; +SUCR1TAB56 PO
[2020-05-15 10:43] VITALS: BP 132/74
[2020-05-15] MEDS ORDERED: ONDANSETRON 4 MG ODT PO ONE (10:50)
[2020-05-15] MEDS ORDERED: DICYCLOMINE HCL LIQUID 20 MG, ALUMINUM HYD/MAG/SIMETHICONE 30 ML, LIDOCAINE VISCOUS 2% ... PO ONE ×3 (10:50)
[2020-05-15] MEDS ORDERED: ACETAMINOPHEN 325 MG TAB PO ONE (10:50)
[2020-05-15] MEDS ORDERED: ALUMINUM HYD/MAG/SIMETHICONE 30 ML UDC ONE (10:57)
[2020-05-15] MEDS ORDERED: DICYCLOMINE HCL LIQUID 10 MG/5 ML UDC ONE (10:57)
[2020-05-15] MEDS ORDERED: LIDOCAINE VISCOUS 2% 20 ML UDC ONE (10:57)
[2020-05-15 11:29] LABS: HEMATOCRIT 40.1 % (36-48); HEMOGLOBIN 13.6 g/dL (12.0-16.0); MEAN CORPUSCULAR VOLUME 88.7 fL (80-94); RED BLOOD CELL COUNT(AUTO) 4.52 MIL/uL (4.20-5.40); WHITE BLOOD COUNT (AUTO) 4.2 K/uL (4.8-10.8)
[2020-05-15 11:30] LABS: EOSINOPHILS % (AUTO) 0.8 % (0.0-4.0); LYMPHOCYTES % (AUTO) 27.4 % (20.5-51.1); MEAN CORPUSCULAR HEMOGLOBIN 30 pg (27-31); MEAN CORPUSCULAR HGB CONC 34 g/dL (33-37); MONOCYTES % (AUTO) 8.2 % (1.7-9.3); NEUTROPHILS % (AUTO) 63.2 % (42.2-75.2); PLATELET COUNT (AUTO) 219 K/uL (140-450); RED CELL DISTRIBUTION WIDTH 13.9 % (11.6-13.7)
[2020-05-15 11:31] LABS: LYMPHOCYTES # (AUTO) 1.1 K/uL (2.5-16.5); MONOCYTES # (AUTO) 0.3 K/uL (0.8-1.0); NEUTROPHILS # (AUTO) 2.6 K/uL (1.8-7.7)
[2020-05-15 11:59] LABS: CHLORIDE 88 mmol/L (98-107); SODIUM SERUM 122 mmol/L (136-145)
[2020-05-15 12:00] LABS: ALBUMIN 3.3 g/dL (3.4-5.0); ANION GAP 11.6 (8-16); ASPARTATE AMINOTRANSFERASE 30 U/L (15-37); CARBON DIOXIDE 26.4 mmol/L (21-32); CREATININE 0.5 mg/dL (0.6-1.3); GLUCOSE 110 mg/dL (74-106); LIPASE 247 U/L (73-393); TOTAL BILIRUBIN 0.3 mg/dL (0.0-1.0); UREA NITROGEN, BLOOD 7 mg/dL (7-18)
--- NOTE | 2020-05-15 12:11 | NUR ---
COVID SWAB COLLECTED AND SENT TO THE LAB.
[2020-05-15] MEDS ORDERED: NACL 0.9% 1,000 ML IV ONE (13:20)
--- NOTE | 2020-05-15 16:58 | NUR ---
Call diana Smiley for updates-- [phone]
--- NOTE | 2020-05-15 17:06 | NUR ---
PT C/O UPEER ABDOMINAL PAIN, DIZZINESS, AND GENERALIZED WEAKNESS FOR 3 DAYS. DENIES FEVER, COUGH, SOB, CHEST PAIN, N/V/D, OR SICK CONTACT. PMH: DM, HTN
--- NOTE | 2020-05-15 17:16 | NUR ---
Pt assisted on to bedpan for UA collection.
[2020-05-15] MEDS ORDERED: POTASSIUM CHLORIDE 10 MEQ TABER PO PRN (17:45)
[2020-05-15] MEDS ORDERED: ONDANSETRON 4 MG/2 ML VIAL IM/IVP PRN (17:45)
[2020-05-15] MEDS ORDERED: DOCUSATE SODIUM 100 MG GELCAP PO PRN (17:45)
[2020-05-15] MEDS ORDERED: NON-FORMULARY ITEM (Fluticasone/Salmeterol* (Advair 250-50 Diskus*) 1 PUFF) IH PRN (17:45)
[2020-05-15] MEDS ORDERED: ACETAMINOPHEN 325 MG TAB PO PRN (17:45)
[2020-05-15 18:23] LABS: PROTHROMBIN TIME 10.4 secs (10.8-13.4)
[2020-05-15 18:45] LABS: CHOL/HDL RATIO 3.3 (1-4.5); FREE T4 (FREE THYROXINE) 1.39 ng/dL (0.76-1.46); MAGNESIUM 1.7 mg/dL (1.8-2.4); THYROID STIMULATING HORMONE 3.85 uIU/mL (0.34-3.74)
--- NOTE | 2020-05-15 18:57 | NUR ---
Pt resting, repositioned for comfort, HOB elevated. VSS, will continue to monitor.
--- NOTE | 2020-05-15 19:30 | NUR ---
report received from GINA May for continuation of care.
--- NOTE | 2020-05-15 19:32 | NUR ---
Gave report to GINA Crowley. Transfered care at this time.
--- NOTE | 2020-05-15 19:36 | NUR ---
Performed MRSA swab, walked to lab.
--- NOTE | 2020-05-15 19:40 | NUR ---
pt c/o of 6/10 abd pain at this time.
[2020-05-15] MEDS: HYDROcodone/APAP 7.5/325 MG 1 TAB PO PRN (19:44)
--- NOTE | 2020-05-15 20:51 | NUR ---
CALLED TRANSMITTER ENGINEER IN CHARGE FOR MEDICATIONS DUE AT 2100.
[2020-05-15] MEDS ORDERED: CRUSHER, PILL MC ONE (21:55)
[2020-05-15] MEDS: AMITRIPTYLINE 10 MG TAB PO SCH (21:59)
[2020-05-15] MEDS: SUCRALFATE 1 GM TAB PO SCH (21:59)
[2020-05-15] MEDS: ATORVASTATIN 20 MG TAB PO SCH (22:00)
[2020-05-15] MEDS: METOPROLOL 25 MG TAB PO SCH (22:01)
--- NOTE | 2020-05-15 23:00 | NUR ---
PT RESTING IN BED, LOCKED AND IN LOWEST POSITION ,HOB ELEVATED, SIDE RAIL X2 FOR PT SAFETY. VSS. NO ACUTE DISTRESS NOTED.
[2020-05-15 23:35] LABS: APPEARANCE,URINE CLEAR (CLEAR); BILIRUBIN,URINE NEGATIVE (NEGATIVE); BLOOD, URINE NEGATIVE (NEGATIVE); COLOR,URINE YELLOW (YELLOW); LEUKOCYTE ESTERASE ,URINE TRACE (NEGATIVE); NITRITE, URINE NEGATIVE (NEGATIVE); UGLUCOSE NEGATIVE (NEGATIVE)
[2020-05-15] MEDS ORDERED: ALBUTEROL HFA MDI 90 MCG/ACTUATION 8 GM INH PRN (23:35)
[2020-05-16 00:04] LABS: RBC,URINE 0-5 /HPF (0-5); WBC,URINE 0-5 /HPF (0-5)
--- NOTE | 2020-05-16 00:30 | NUR ---
LAB AT BEDSIDE.
[2020-05-16 00:48] LABS: ANION GAP 7.8 (8-16); CARBON DIOXIDE 29.3 mmol/L (21-32); CHLORIDE 93 mmol/L (98-107); CREATININE 0.5 mg/dL (0.6-1.3); GLUCOSE 95 mg/dL (74-106); POTASSIUM 4.1 mmol/L (3.5-5.1); SODIUM SERUM 126 mmol/L (136-145); UREA NITROGEN, BLOOD 6 mg/dL (7-18)
--- NOTE | 2020-05-16 00:48 | NUR ---
PERINEAL CARE PROVIDED TO PT AT THIS TIME. NEW SHEETS AND BLANKET PROVIDED. PROCEDURE WELL TOLERATED BY PT.
--- NOTE | 2020-05-16 02:00 | NUR ---
Pt repositioned for comfort. No acute distress noted. VSS.
--- NOTE | 2020-05-16 04:00 | NUR ---
Perineal care provided at this time. Procedure well tolerated by pt.
--- NOTE | 2020-05-16 06:30 | NUR ---
PT C/O OF HEADACHE 10/09 - WILL ADMINISTER PRN PAIN MEDICATION AT THIS TIME.
[2020-05-16] MEDS: FAMOTIDINE 20 MG TAB PO SCH (06:36)
[2020-05-16] MEDS: HYDROcodone/APAP 7.5/325 MG 1 TAB PO PRN ×3 (06:37→23:05)
--- NOTE | 2020-05-16 06:40 | NUR ---
PER PT AUTHORIZATION SPOKE W/ SON DARLENE , UPDATED ON PT STATUS AT THIS TIME. DARLENE (SON) [phone]
--- NOTE | 2020-05-16 06:58 | NUR ---
PT TRANSFERRED TO ER BED 2 VIA RSPERRY.
[2020-05-16 07:11] LABS: T4 (THYROXINE) 9.6 ug/dL (4.5-12.0)
--- NOTE | 2020-05-16 07:19 | NUR ---
REPORT GIVEN TO GINA VIZCAINO FOR TRANSFER OF CARE.
--- NOTE | 2020-05-16 07:49 | NUR ---
PT ALERT AND AWAKE, BREATHING EVEN AND UNLABORED. PT GIVEN CUP WATER
[2020-05-16 08:41] LABS: BASOPHILS % (AUTO) 0.7 % (0.0-2.0); EOSINOPHILS % (AUTO) 0.5 % (0.0-4.0); HEMATOCRIT 39.7 % (36-48); HEMOGLOBIN 13.6 g/dL (12.0-16.0); LYMPHOCYTES # (AUTO) 1.1 K/uL (2.5-16.5); LYMPHOCYTES % (AUTO) 24.2 % (20.5-51.1); MEAN CORPUSCULAR HEMOGLOBIN 31 pg (27-31); MEAN CORPUSCULAR HGB CONC 34 g/dL (33-37); MEAN CORPUSCULAR VOLUME 89.4 fL (80-94); MONOCYTES # (AUTO) 0.3 K/uL (0.8-1.0); MONOCYTES % (AUTO) 6.3 % (1.7-9.3); NEUTROPHILS # (AUTO) 3.1 K/uL (1.8-7.7); NEUTROPHILS % (AUTO) 68.3 % (42.2-75.2); PLATELET COUNT (AUTO) 234 K/uL (140-450); RED BLOOD CELL COUNT(AUTO) 4.44 MIL/uL (4.20-5.40); RED CELL DISTRIBUTION WIDTH 14.4 % (11.6-13.7); WHITE BLOOD COUNT (AUTO) 4.6 K/uL (4.8-10.8)
[2020-05-16] MEDS: busPIRone 5 MG TAB PO SCH (09:05)
[2020-05-16] MEDS: METOPROLOL 25 MG TAB PO SCH ×2 (09:06→22:42)
[2020-05-16] MEDS: ZINC SULF 220 MG CAP PO SCH (09:07)
[2020-05-16] MEDS: SUCRALFATE 1 GM TAB PO SCH ×2 (09:07→22:40)
[2020-05-16] MEDS: lisinopriL 10 MG TAB PO SCH (09:07)
[2020-05-16] MEDS: ASCORBIC ACID 500 MG TAB PO SCH (09:08)
[2020-05-16] MEDS: amLODIPine 5 MG TAB PO SCH (09:09)
[2020-05-16 09:13] LABS: MAGNESIUM 1.7 mg/dL (1.8-2.4); PHOSPHORUS 3.3 mg/dL (2.5-4.9)
[2020-05-16 09:36] LABS: ANION GAP 11.1 (8-16); CARBON DIOXIDE 26.2 mmol/L (21-32); CHLORIDE 92 mmol/L (98-107); CREATININE 0.5 mg/dL (0.6-1.3); GLUCOSE 89 mg/dL (74-106); POTASSIUM 4.3 mmol/L (3.5-5.1); SODIUM SERUM 125 mmol/L (136-145); UREA NITROGEN, BLOOD 6 mg/dL (7-18)
--- NOTE | 2020-05-16 10:00 | NUR ---
PT ALERT AND AWAKE, BREATHING EVEN AND UNLABORED
--- NOTE | 2020-05-16 11:55 | NUR ---
DR GONZALEZ MADE AWARE PT HR STILL 145 AFTER LOPRESSOR 5MG, PER DR GONZALEZ TO NOTIFY ARMAMENT MECHANIC. DR GARY ARMAMENT MECHANIC MADE AWARE
--- NOTE | 2020-05-16 12:00 | NUR ---
PT ALERT AND AWAKE, BREATHING EVEN AND UNLABORED
--- NOTE | 2020-05-16 12:16 | NUR ---
SOCIAL WORK NOTE: Patient's Orientation Unable To Assess Information Provided By DARLENE MI - SON Comments SW WAS UNABLE TO MEET PATIENT AT BEDSIDE DUE TO MEDICAL CONDITION. SW COMPLETED ASSESSMENT WITH PATIENT'S SON. Loader Helper, Realtionship and Phone Number DARLENE FERRERA [phone] Healthcare Power of Roof Assembler No Does Patient Have a POLST No Identifying Problems No Social Work Triggers Is A Social Work Consult Needed No Mandate Report Filed No Explanation Of Identifying Problems PATIENT IS A 74-YEAR-OLD FEMALE ADMITTED FOR SEVERE HYPONATREMIA. PATIENT HAS PMHX OF HYPERTENSION, ASTHMA, AND GERD. Admitted From Home Pre-Admission Level Of Functioning Status Assist With ADL Level Of Functioning Comment PER SON, PATIENT RECEIVES ASSISTANCE WITH PREPARING MEALS, TRANSPORTATION, CLEANING, AND OTHER ADLS. Prior Resources/Services Used In Last 12 Months [facility] Prior Resources/Service Comments PER SON, PATIENT HAS A CAREGIVER THROUGH [facility] BUT IS UNAWARE OF HOW MANY HOURS PATIENT RECEIVES. Prior DME Walker Dialysis Comments N/A Living Situation Lives With Family House Patient Had Caregiver Yes Name and Contact Number Of Designated Caregiver JIGAR - [phone] Home Support No Caregiver Issues Financial Issues No Known Financial Issue Referral To The Financial Counselor Needed No Factors/Needs No D/C Needs Identified Explanation And Or Other Factors Affecting/Possible DC Needs SON STATED HE WOULD ARRANGE TRANSPORTATION FOR PATIENT HOME. Pt/Rep Participated In Discharge Plan Yes Patient/Family Agress With Discharge Plan Yes Discharge Plan Comments TENTATIVE DISCHATGE PLAN IS FOR PATIENT TO RETURN HOME. DC Plan Status Initiated
--- NOTE | 2020-05-16 14:00 | NUR ---
PT ALERT AND AWAKE, BREATHING EVEN AND UNLABORED
--- NOTE | 2020-05-16 15:36 | NUR ---
PATIENT HAS BEEN SCREENED AND CATEGORIZED MODERATE NUTRITION RISK. PATIENT WILL BE SEEN WITHIN 3-5 DAYS OF ADMISSION. 05/18/20 05/20/[address]
--- NOTE | 2020-05-16 16:00 | NUR ---
PT ALERT AND AWAKE, BREATHING EVEN AND UNLABORED
--- NOTE | 2020-05-16 17:30 | NUR ---
PT URINATED, BED AND GOWN CHANGED. PT NEEDS MET AT THIS TIME.
--- NOTE | 2020-05-16 18:00 | NUR ---
NORCO GIVEN FOR HEADACHE
--- NOTE | 2020-05-16 19:15 | NUR ---
REPORT PROVIDED BY GINA VIZCAINO FOR CONTINUATION OF CARE.
--- NOTE | 2020-05-16 19:20 | NUR ---
PERINEAL CARE FOR PT AT THIS TIME. PROCEDURE WELL TOLERATE BY PT.
--- NOTE | 2020-05-16 20:20 | NUR ---
PT RESTING IN BED, LOCKED AND IN LOWEST POSITION,HOB ELEVATED, SIDE RAIL X2 FOR PT SAFETY. NO ACUTE DISTRESS NOTED.
--- NOTE | 2020-05-16 22:00 | NUR ---
PT PULLED OUT IV WHIE REPOSITIONING IN BED. IV CATH INTACT, GUAZE PLACED ON IV SITE W/ PRESSURE PLACED.
--- NOTE | 2020-05-16 22:12 | NUR ---
CALLED BIOMEDICAL PHOTOGRAPHER FOR MEDICATIONS NOT IN ER PYXIS AT THIS TIME.
--- NOTE | 2020-05-16 22:25 | NUR ---
PT C/O OF HEADACHE 6/10 ON PAIN SCALE. WILL REVIEW PRN PAIN MEDICATION.
[2020-05-16] MEDS: AMITRIPTYLINE 10 MG TAB PO SCH (22:41)
[2020-05-16] MEDS: ATORVASTATIN 20 MG TAB PO SCH (22:42)
--- NOTE | 2020-05-16 22:45 | NUR ---
PT PROVIDED W/ NEW DIAPER AT THIS TIME. NO ACUTE DISTRESS NOTED.
--- NOTE | 2020-05-16 23:15 | NUR ---
Patient will be admitted to care of DR. GONZALEZ. Admited to TELEMETRY. Will go to [id number] . Belongings list completed. Report to GINA BRYANT.
[2020-05-16 23:30] VITALS: BP 140/62
--- NOTE | 2020-05-16 23:30 | NUR ---
PT TRANSFERRED TO ROOM 110B VIA GURNEY. RECEIVED TELEPHONE REPORT FROM TRINA AT 2315. PT IS PORTUGUESE SPEAKING AAOX4. RESPIRATIONS ARE EQUAL AND UNLABORED ON ROOM AIR. LUNG SOUNDS ARE CLEAR. DENIES COUGH,SOB, FEVERS OR RECENT TRAVELS. C/C ABD PAIN DX HYPONATREMIA. IV ON LAC 24G SL. SKIN IS INTACT. PT WITH CANE AMBULATES WITH ASSIST. PT WITH DEVAN KNEE REPLACEMENT X 4MO AGO. ABD IS ROUND SOFT. BOWEL SOUNDS ARE ACTIVE X4 LBM TODAY. LIVED AT HOME WITH SON. MRSA SWAB OBTAINED. PT WAS CLEANED AND REPOSITION. SITTING UP EATING JELLO PER REQUEST. ORIENTED PT TO ROOM AND STAFF. CALL LIGHT WITHIN REACH. POC DISCUSSED WITH PT. PT VERBALIZED UNDERSTANDING. ALL SAFETY MEASURES ARE IN PLACE. WILL CONTINUE TO MONITOR.
--- NOTE | 2020-05-16 23:30 | NUR ---
PT TRANSFERRED BY RN & EMT VIA GURNEY TO BED 110B , GINA BRYANT MADE AWARE.
--- NOTE | 2020-05-17 00:55 | NUR ---
PT LAYING COMFORTABLY IN BED WITH EYES CLOSED. CHEST RISE AND FALL NOTED. ALL SAFETY MEASURES ARE IN PLACE.
--- NOTE | 2020-05-17 02:30 | NUR ---
MADE ROUNDS. PT IS SLEEPING COMFORTABLY IN BED WITH EYES CLOSED. CHEST RISE AND FALL NOTED. WILL CONTINUE TO MONITOR.
--- NOTE | 2020-05-17 03:52 | NUR ---
PT SEEN AND ASSESSED. FOUND PT ON ROOM AIR WITH SPO2 OF 94%. PT IS IN NO RESPIRATORY DISTRESS AT THIS TIME. WILL CONTINUE TO MONITOR PT.
[2020-05-17 04:00] VITALS: BP 158/81
--- NOTE | 2020-05-17 04:00 | NUR ---
VITAL SIGNS ARE WITHIN NORMAL LIMITS. ALL SAFETY MEASURES ARE IN PLACE. CALL LIGHT IS WITHIN REACH.
--- NOTE | 2020-05-17 06:00 | NUR ---
SPOKE WITH DARLENE MI PT'S SON GAVE UPDATE NO FURTHER QUESTIONS OR CONCERNS
[2020-05-17] MEDS: FAMOTIDINE 20 MG TAB PO SCH (06:09)
--- NOTE | 2020-05-17 07:05 | NUR ---
REC'D REPORT FROM HOME DESIGNER NURSE. PT STABLE. ON RA. BED LOWEST POSITION. CALL LIGHT WITHIN REACH.
--- NOTE | 2020-05-17 07:25 | NUR ---
GAVE BEDSIDE REPORT TO DAY RN. PT ENDORSED IN STABLE CONDITION.
[2020-05-17 08:00] VITALS: BP 148/69
[2020-05-17 08:27] LABS: BASOPHILS % (AUTO) 0.4 % (0.0-2.0); EOSINOPHILS # (AUTO) 0.1 K/uL (0-0.4); EOSINOPHILS % (AUTO) 1.9 % (0.0-4.0); HEMATOCRIT 40.4 % (36-48); HEMOGLOBIN 13.6 g/dL (12.0-16.0); LYMPHOCYTES # (AUTO) 1.2 K/uL (2.5-16.5); LYMPHOCYTES % (AUTO) 29.3 % (20.5-51.1); MEAN CORPUSCULAR HEMOGLOBIN 30 pg (27-31); MEAN CORPUSCULAR HGB CONC 34 g/dL (33-37); MEAN CORPUSCULAR VOLUME 89.6 fL (80-94); MONOCYTES # (AUTO) 0.5 K/uL (0.8-1.0); MONOCYTES % (AUTO) 11.2 % (1.7-9.3); NEUTROPHILS # (AUTO) 2.4 K/uL (1.8-7.7); NEUTROPHILS % (AUTO) 57.2 % (42.2-75.2); PLATELET COUNT (AUTO) 238 K/uL (140-450); RED CELL DISTRIBUTION WIDTH 14.1 % (11.6-13.7); WHITE BLOOD COUNT (AUTO) 4.2 K/uL (4.8-10.8)
[2020-05-17 09:03] LABS: ANION GAP 10.1 (8-16); CARBON DIOXIDE 28.7 mmol/L (21-32); CHLORIDE 91 mmol/L (98-107); CREATININE 0.5 mg/dL (0.6-1.3); GLUCOSE 91 mg/dL (74-106); POTASSIUM 3.8 mmol/L (3.5-5.1); SODIUM SERUM 126 mmol/L (136-145); UREA NITROGEN, BLOOD 7 mg/dL (7-18)
[2020-05-17] MEDS: DEXAMETHASONE 4 MG/ML VIAL IVP SCH (10:32)
[2020-05-17] MEDS: ASCORBIC ACID 500 MG TAB PO SCH (10:33)
[2020-05-17] MEDS: SUCRALFATE 1 GM TAB PO SCH ×2 (10:33→20:30)
[2020-05-17] MEDS: busPIRone 5 MG TAB PO SCH (10:34)
[2020-05-17] MEDS: amLODIPine 5 MG TAB PO SCH (10:34)
[2020-05-17] MEDS: METOPROLOL 25 MG TAB PO SCH ×2 (10:34→20:30)
[2020-05-17] MEDS: lisinopriL 10 MG TAB PO SCH (10:35)
--- NOTE | 2020-05-17 10:35 | NUR ---
ADMINISTERED MEDS PER MD ORDER. PT ON RA . AOX4. S1S2, LUNGS CLEAR NO EDEMA PRESENT ABLE TO AMBULATE TO RESTROOM TO VOID. STABLE.
[2020-05-17] MEDS: ZINC SULF 220 MG CAP PO SCH (10:40)
[2020-05-17] MEDS: HYDROcodone/APAP 7.5/325 MG 1 TAB PO PRN (10:41)
[2020-05-17] MEDS ORDERED: CRUSHER, PILL MC ONE (10:52)
[2020-05-17 12:00] VITALS: BP 126/65
--- NOTE | 2020-05-17 12:42 | NUR ---
DC PLANN[age] YRS OLD FEMALE PATIENT WAS ADMITTED FROM HOME WITH A DX OF SEVER HYPONATREMIA. SODIUM LEVEL WAS 122 . PT HAS A HX OF HTN, GERD AND ASTHMA. CXR SHOWED PNEUMONIA. RAPID COVID TEST POSITIVE AND PCR IS PENDING. STARTED COVID PROTOCOL REMDESEVIR , AZITHROMYCIN AND ROCEPHIN AND IV ABX . CONSULTED WITH NEPHRO FOR LOW NA , ID AND PULMO. DC PLAN TO GO HOME WHEN STABLE CM TO FOLLOW. Addendum: 05/18/20 at 1414 by Sri Peralta RN DC PLANNING: PT IS ON ROOM AIR SATING 95 %. STABLE FOR DISCHARGE.
--- NOTE | 2020-05-17 13:10 | NUR ---
PT STABLE, SLEEPING. CALL LIGHT WITHIN REACH. RA
--- NOTE | 2020-05-17 15:30 | NUR ---
PT STABLE, SLEEPING. 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
[2020-05-17 18:48] VITALS: BP 130/68
--- NOTE | 2020-05-17 19:15 | NUR ---
ENDORSED PT TO NIGHT NURSE, PT STABLE
--- NOTE | 2020-05-17 19:16 | NUR ---
RECEIVED BEDSIDE REPORT FROM WYATT RN. [id number]. PT IS UZBEK SPEAKING AAOX4. RESPIRATIONS ARE EQUAL AND UNLABORED ON ROOM AIR. LUNG SOUNDS ARE CLEAR. DENIES COUGH,SOB, FEVERS OR RECENT TRAVELS. C/C ABD PAIN DENIES ANY PAIN AT THIS TIME. DX HYPONATREMIA. IV ON LAC 24G SL. SKIN IS INTACT. PT WITH CANE AMBULATES WITH ASSIST. PT WITH DEVAN KNEE REPLACEMENT X 4MO AGO. ABD IS ROUND SOFT. BOWEL SOUNDS ARE ACTIVE X4 LBM TODAY. LIVED AT HOME WITH SON. MRSA SWAB OBTAINED. PT WAS CLEANED AND REPOSITION. SITTING UP EATING JELLO PER REQUEST. ORIENTED PT TO ROOM AND STAFF. CALL LIGHT WITHIN REACH. POC DISCUSSED WITH PT. PT VERBALIZED UNDERSTANDING. ALL SAFETY MEASURES ARE IN PLACE. WILL CONTINUE TO MONITOR.
[2020-05-17 20:00] VITALS: BP 119/64
[2020-05-17] MEDS: ATORVASTATIN 20 MG TAB PO SCH (20:30)
[2020-05-17] MEDS: AMITRIPTYLINE 10 MG TAB PO SCH (20:30)
--- NOTE | 2020-05-17 20:30 | NUR ---
VITAL SIGNS ARE WITHIN NORMAL LIMITS. BENJIE MEDICATIONS GIVEN PER ORDERS. MED EDUCATION GIVEN. CALL LIGHT IS WITHIN REACH WILL CONTINUE TO MONITOR.
--- NOTE | 2020-05-17 21:53 | NUR ---
PT LAYING COMFORTABLY IN BED. CALL LIGHT IS WITHIN REACH.
[2020-05-18] VITALS: BP 119/64
--- NOTE | 2020-05-18 | NUR ---
VITAL SIGNS ARE WITHIN NORMAL LIMITS. ALL NEEDS MET. ALL SAFETY MEASURES ARE IN PLACE.
--- NOTE | 2020-05-18 02:21 | NUR ---
ROUNDS MADE. PT RESTING COMFORTABLY IN WITH EYES CLOSED. CHEST RISE AND FALL NOTED. ALL SAFETY MEASURES ARE IN PLACE. CALL LIGHT IS WITHIN REACH.
[2020-05-18 04:00] VITALS: BP 117/70
--- NOTE | 2020-05-18 04:00 | NUR ---
VITAL SIGNS ARE WITHIN NORMAL LIMITS. ALL SAFETY MEASURES ARE IN PLACE. WILL CONTINUE TO MONITOR.
[2020-05-18] MEDS: FAMOTIDINE 20 MG TAB PO SCH (06:26)
--- NOTE | 2020-05-18 06:26 | NUR ---
ASSISTED PT TO BATHROOM. BENJIE MEDICATION GIVEN PER ORDERS. ALL NEEDS MET. PT IS STABLE. WILL ENDORSE TO DAY RN.
--- NOTE | 2020-05-18 07:42 | NUR ---
REC'D REPORT FROM DISTRIBUTION MANAGER NURSE. PT STABLE. CALL LIGHT WITHIN REACH. L.AC 24G SL.
[2020-05-18 08:00] VITALS: BP 140/62
[2020-05-18] MEDS: DEXAMETHASONE 4 MG/ML VIAL IVP SCH (08:38)
[2020-05-18] MEDS: busPIRone 5 MG TAB PO SCH (08:38)
[2020-05-18] MEDS: SUCRALFATE 1 GM TAB PO SCH (08:39)
[2020-05-18] MEDS: METOPROLOL 25 MG TAB PO SCH (08:39)
[2020-05-18] MEDS: amLODIPine 5 MG TAB PO SCH (08:40)
[2020-05-18] MEDS: ASCORBIC ACID 500 MG TAB PO SCH (08:40)
[2020-05-18] MEDS: lisinopriL 10 MG TAB PO SCH (08:40)
[2020-05-18] MEDS: ZINC SULF 220 MG CAP PO SCH (08:41)
[2020-05-18 08:54] LABS: BASOPHILS % (AUTO) 0.1 % (0.0-2.0); HEMATOCRIT 40.7 % (36-48); LYMPHOCYTES # (AUTO) 0.5 K/uL (2.5-16.5); MEAN CORPUSCULAR HEMOGLOBIN 31 pg (27-31); MEAN CORPUSCULAR HGB CONC 35 g/dL (33-37); MEAN CORPUSCULAR VOLUME 88.9 fL (80-94); MONOCYTES # (AUTO) 0.3 K/uL (0.8-1.0); MONOCYTES % (AUTO) 9.4 % (1.7-9.3); NEUTROPHILS # (AUTO) 2.7 K/uL (1.8-7.7); NEUTROPHILS % (AUTO) 76.5 % (42.2-75.2); PLATELET COUNT (AUTO) 290 K/uL (140-450); RED BLOOD CELL COUNT(AUTO) 4.58 MIL/uL (4.20-5.40); RED CELL DISTRIBUTION WIDTH 14.1 % (11.6-13.7); WHITE BLOOD COUNT (AUTO) 3.5 K/uL (4.8-10.8)
[2020-05-18 08:56] LABS: MAGNESIUM 2.1 mg/dL (1.8-2.4); PHOSPHORUS 2.9 mg/dL (2.5-4.9)
[2020-05-18 09:00] LABS: ANION GAP 12.6 (8-16); CARBON DIOXIDE 27.4 mmol/L (21-32); CHLORIDE 95 mmol/L (98-107); CREATININE 0.6 mg/dL (0.6-1.3); GLUCOSE 132 mg/dL (74-106); SODIUM SERUM 131 mmol/L (136-145); UREA NITROGEN, BLOOD 14 mg/dL (7-18)
[2020-05-18] MEDS ORDERED: AZIT250T3 PO (11:27)
[2020-05-18] MEDS ORDERED: DEC1 PO (11:27)
[2020-05-18] MEDS ORDERED: ASPI-1205 PO (11:27)
[2020-05-18 12:00] VITALS: BP 99/51
[2020-05-18] MEDS: HYDROcodone/APAP 7.5/325 MG 1 TAB PO PRN (12:42)
[2020-05-18 14:27] VITALS: BP 99/51
--- NOTE | 2020-05-18 17:20 | NUR ---
PT DISCHARGED. IV REMOVED, INTACT. ID BANDS REMOVED. PT ON RA PRIOR TO LEAVING, TRANSPORTED TO FAMILY VIA WHEELCHAIR. PT STABLE UPON DISCHARGE
== END 2020-05-18 17:20 | disposition home or self-care (01) | DRG 177 ==
LOC: MED 10:32 → MTU 16:04
PROVIDERS: ADMIT Emergency Medicine; ATTEND Emergency Medicine
DX: U07.1 COVID-19 (principal); J12.89 Other viral pneumonia; J96.01 Acute respiratory failure with hypoxia; E43 Unspecified severe protein-calorie malnutrition; E87.1 Hypo-osmolality and hyponatremia; E66.9 Obesity, unspecified; I10 Essential (primary) hypertension; J45.909 Unspecified asthma, uncomplicated; F41.9 Anxiety disorder, unspecified; K21.9 Gastro-esophageal reflux disease without esophagitis; Z80.0 Family history of malignant neoplasm of digestive organs; Z82.49 Family history of ischemic heart disease and other diseases of the circulatory system; Z68.33 Body mass index [BMI] 33.0-33.9, adult
CPT/HCPCS: 36415; 71045; 80048; 80053; 81001; 83036; 83690; 83735; 83880; 83935; 84100; 84300; 84436; 84439; 84443; 84479; 85025; 85610; 85730; 87081; 93005; 99285; J1100; J1644; Q0162; U0003

== ENCOUNTER 2021-07-16 06:04 | Inpatient (IN) | payer OTHER, MEDICAID, SELFPAY ==
[~2021-07-16] VITALS: Ht 152.4 cm; Wt 68.0 kg
[~2021-07-16 06:04] MED LIST changes: +AMIT10TA PO; +ASPI-1205 PO; +AZIT250T3 PO; +DEC1 PO; -ELA10 PO; +LISI-486 PO; -LISI10TA11 PO
[2021-07-16 06:09] VITALS: BP 143/88
--- NOTE | 2021-07-16 06:09 | NUR ---
TO BED VIA WHEELCHAIR
--- NOTE | 2021-07-16 06:14 | NUR ---
75 YO/F BIB SELF W C/O CHEST PAIN 9/10 PRESSURE X3 DAYS NON-RAD CONSTANT, + BACK PAIN AND GENERALIZED ABDOMINAL PAIN, + SON, + N/V/D, + SLIGHT COUGH AND DIZZYNESS, +"ALOT OF ANXIETY." PT ALSO C/O BURNING URINATION, AND FREQUNCY, DENIES BLOOD IN URINE. PT ALSO REPORTS DRINKING ALOT OF ALCOHOL X10 DAYS AGO AND HAS NOT BEEN ABLE TO SLEEP X10 DAYS, PT LAST ALCOHOLIC DRINK REPORTED YESTERDAY. PT AOX4, GCS 15, TACHYCARDIC AT 111HR, AND TACHYPNEIC AT 29, ON RA W O2 SAT 97%. PT DENIES BLOOD IN EMESIS OR BOWEL. DENIES FEVERS OR CHILLS. PT PLACED ON MONITOR AND IN GOWN. ERMD AT BEDSIDE ASSESSING PT. PMH:HTN, HIGH CHOLESTEROL, PRE-DIABETIC, ANXIETY, DEPRESSION ALLERGIES: DENIES
--- NOTE | 2021-07-16 06:21 | NUR ---
Dr. Ortega at bedside to exam patient.
[2021-07-16] MEDS ORDERED: ONDANSETRON 4 MG/2 ML VIAL IVP ONE (06:35)
[2021-07-16] MEDS ORDERED: NACL 0.9% 1,000 ML IV ONE ×2 (06:35→08:15)
[2021-07-16] MEDS ORDERED: ASPIRIN 81 MG TAB.CHEW PO ONE (06:35)
[2021-07-16] MEDS ORDERED: MORPHINE SULFATE 2 MG/ML SYR IVP ONE (06:35)
[2021-07-16 06:41] LABS: BASOPHILS # (AUTO) 0.1 K/uL (0.00-0.22); BASOPHILS % (AUTO) 0.6 % (0.0-2.0); EOSINOPHILS # (AUTO) 0.1 K/uL (0-0.4); EOSINOPHILS % (AUTO) 1.1 % (0.0-4.0); HEMATOCRIT 38.9 % (36-48); HEMOGLOBIN 13.2 g/dL (12.0-16.0); LYMPHOCYTES # (AUTO) 2.3 K/uL (2.5-16.5); LYMPHOCYTES % (AUTO) 20.7 % (20.5-51.1); MEAN CORPUSCULAR HEMOGLOBIN 32 pg (27-31); MEAN CORPUSCULAR HGB CONC 34 g/dL (33-37); MEAN CORPUSCULAR VOLUME 92.4 fL (80-94); MONOCYTES # (AUTO) 0.7 K/uL (0.8-1.0); MONOCYTES % (AUTO) 6.4 % (1.7-9.3); NEUTROPHILS # (AUTO) 7.9 K/uL (1.8-7.7); NEUTROPHILS % (AUTO) 71.2 % (42.2-75.2); PLATELET COUNT (AUTO) 270 K/uL (140-450); RED BLOOD CELL COUNT(AUTO) 4.21 MIL/uL (4.20-5.40); RED CELL DISTRIBUTION WIDTH 13.8 % (11.6-13.7); WHITE BLOOD COUNT (AUTO) 11.1 K/uL (4.8-10.8)
--- NOTE | 2021-07-16 07:12 | NUR ---
REPORT RECEIVED FROM DEEP FUENTES FOR CONTINUITY OF CARE. PT IS A&OX4. IV SITE RT AC 22G, INFUSING NS BOLUS. SKIN WARM AND DRY. SAFETY PRECAUTIONS IN PLACE, WILL CONTINUE TO MONITOR.
--- NOTE | 2021-07-16 07:12 | NUR ---
Pt report given to GINA SOLIZ. Transfer of care at this time.
[2021-07-16] MEDS ORDERED: METOCLOPRAMIDE 10 MG/2 ML INJ VIAL IVP ONE (07:25)
[2021-07-16] MEDS ORDERED: diphenhydrAMINE 50 MG/ML VIAL IVP ONE (07:25)
[2021-07-16 07:41] LABS: ALBUMIN 3.7 g/dL (3.4-5.0); ASPARTATE AMINOTRANSFERASE 47 U/L (15-37); CARBON DIOXIDE 23.7 mmol/L (21-32); CHLORIDE 92 mmol/L (98-107); CREATININE 0.5 mg/dL (0.6-1.3); GLUCOSE 103 mg/dL (74-106); LIPASE 138 U/L (73-393); MAGNESIUM 1.8 mg/dL (1.8-2.4); PHOSPHORUS 2.5 mg/dL (2.5-4.9); POTASSIUM 3.7 mmol/L (3.5-5.1); SODIUM SERUM 131 mmol/L (136-145); THYROID STIMULATING HORMONE 1.65 uIU/mL (0.34-3.74); TOTAL BILIRUBIN 0.5 mg/dL (0.0-1.0); UREA NITROGEN, BLOOD 7 mg/dL (7-18)
--- NOTE | 2021-07-16 07:53 | NUR ---
XRAY AT BEDSIDE
--- NOTE | 2021-07-16 07:55 | NUR ---
PT TAKEN TO CT SCAN
--- NOTE | 2021-07-16 08:03 | NUR ---
PT RETURNED FROM CT
[2021-07-16] MEDS ORDERED: MIDAZOLAM 2 MG/2 ML VIAL IVP ONE (08:15)
[2021-07-16 08:38] LABS: APPEARANCE,URINE CLEAR (CLEAR); BILIRUBIN,URINE NEGATIVE (NEGATIVE); BLOOD, URINE TRACE-I (NEGATIVE); COLOR,URINE YELLOW (YELLOW); LEUKOCYTE ESTERASE ,URINE TRACE (NEGATIVE); NITRITE, URINE POSITIVE (NEGATIVE); PH,URINE 7.5 (5.0-9.0); UGLUCOSE NEGATIVE (NEGATIVE)
[2021-07-16] MEDS ORDERED: METO100T14 PO (10:29)
[2021-07-16] MEDS ORDERED: LISI-487 PO (10:29)
--- NOTE | 2021-07-16 10:30 | NUR ---
DR MACHADO AT BEDSIDE EXAMINING PT
[2021-07-16] MEDS ORDERED: HYDROcodone/APAP 7.5/325 MG 1 TAB PO PRN (10:35)
[2021-07-16] MEDS ORDERED: guaiFENesin DM 200/20 MG-10 ML 10 ML UDC PO PRN ×2 (10:35→10:45)
[2021-07-16] MEDS ORDERED: NACL 0.9% 1,000 ML IV SCH (10:35)
[2021-07-16] MEDS ORDERED: DOCUSATE SODIUM 100 MG GELCAP PO PRN ×2 (10:35→10:45)
[2021-07-16] MEDS ORDERED: ACETAMINOPHEN 325 MG TAB PO PRN (10:35)
[2021-07-16] MEDS ORDERED: ONDANSETRON 4 MG/2 ML VIAL IM/IVP PRN (10:35)
[2021-07-16] MEDS ORDERED: ZOLPIDEM 5 MG TAB PO PRN ×2 (10:35→10:45)
[2021-07-16] MEDS ORDERED: POTASSIUM CHLORIDE 10 MEQ TABER PO PRN ×2 (10:35→10:45)
[2021-07-16] MEDS ORDERED: LORazepam 2 MG/ML VIAL IVP PRN ×2 (10:40→10:45)
[2021-07-16] MEDS ORDERED: GABA100C PO (10:59)
[2021-07-16] MEDS ORDERED: ROSU20TA32 PO (10:59)
[2021-07-16] MEDS ORDERED: NITROGLYCERIN 0.4 MG TAB SL PRN (11:55)
[2021-07-16] MEDS: NACL 0.9% 1,000 ML IV SCH (12:16)
[2021-07-16] MEDS ORDERED: cefTRIAXone 1,000 MG VIAL ONE (12:17)
[2021-07-16 12:43] LABS: PROTHROMBIN TIME 10.2 secs (10.8-13.4)
[2021-07-16 13:44] LABS: RBC,URINE 0-5 /HPF (0-5); WBC,URINE 0-5 /HPF (0-5)
--- NOTE | 2021-07-16 15:02 | NUR ---
PT EATING LUNCH TRAY
[2021-07-16] MEDS: ACETAMINOPHEN 325 MG TAB PO PRN (15:12)
--- NOTE | 2021-07-16 15:24 | NUR ---
FAMILY MEMBER DARLENE MI WAS GIVEN AN UPDATE ALLOWED BY PT AT THIS TIME
--- NOTE | 2021-07-16 17:51 | NUR ---
DR NEWMAN AT BEDSIDE EXAMINING PT
--- NOTE | 2021-07-16 18:02 | NUR ---
BLESSING SWAB COLLECTED AND SENT TO LAB WITH TOPHER PAINTER
--- NOTE | 2021-07-16 18:40 | NUR ---
PT HAD 1 VOID, DIAPER PLACED. PT CLEANED.
--- NOTE | 2021-07-16 19:15 | NUR ---
PT PROVIDED WITH DINNER TRAY
--- NOTE | 2021-07-16 19:20 | NUR ---
PT REPORT RECEIVED FROM GINA ENCARNACION, CONTINUITY OF PT CARE AT THIS TIME.
--- NOTE | 2021-07-16 19:25 | NUR ---
Pt report given to DEEP FUENTES. Transfer of care at this time.
--- NOTE | 2021-07-16 19:46 | NUR ---
PT APPEARS TO BE RESTING W EYES CLOSED IN SUPINE POSITION W HOB SLIGHTLY ELEVATED. PT CONNECTED TO MONITOR W VSS. BREATHING EVEN AND UNLABORED. NAD NOTED, WILL CONTINUE TO MONITOR. NS RUNNING ORDERED.
[2021-07-16 20:01] LABS: CHOL/HDL RATIO 2.9 (1-4.5); FREE T4 (FREE THYROXINE) 0.98 ng/dL (0.76-1.46); THYROID STIMULATING HORMONE 1.66 uIU/mL (0.34-3.74)
[2021-07-16] MEDS: AMITRIPTYLINE 10 MG TAB PO SCH (21:16)
[2021-07-16] MEDS: ATORVASTATIN 20 MG TAB PO SCH (21:17)
--- NOTE | 2021-07-16 21:20 | NUR ---
PT DENIES ANY PAIN, OR OTHER SYMPTOMS AT THIS TIME. ALL NEDDS MET. CONNECTED TO MONITOR. WILL CONTINUE TO MONITOR. VSS.
--- NOTE | 2021-07-16 22:29 | NUR ---
PROVIDED PT SON DARLENE Castrejon UPDATE ON PT STATUS.
--- NOTE | 2021-07-17 02:40 | NUR ---
PT AMBULATED TO BATHROOM W MINOR ASSISTANCE. PT DENIES ANY PAIN, DIZZINESS OR OTHER SYMPTOMS.
--- NOTE | 2021-07-17 03:08 | NUR ---
pt c/o of mild dizziness upon ambulating back from bathroom. pt assisted back to bed, reconnected to monitor. vss.
[2021-07-17] MEDS: NACL 0.9% 1,000 ML IV SCH ×2 (03:47→20:05)
--- NOTE | 2021-07-17 05:10 | NUR ---
PT BP 192/78, PT REPORTS FEELING INCREASINGLY DIZZY. PT LAYING IN BED W HOB ELEVATED. PT DENIES ANY BLURRY VISION, HEAD ACHE, N/V, OR OTHER SYMPTOMS.
[2021-07-17] MEDS ORDERED: hydrALAZINE 20 MG/ML VIAL ONE (05:23)
--- NOTE | 2021-07-17 05:33 | NUR ---
PER MD SUAREZ ORDER FOR BP OF HYDRALIZINE 10MG IVP Q8H FOR SBP>160 OR DBP>100. ORDER CARRIED OUT. HYDRALIZINE 10MG UNAVAILABLE, 20MG VIAL PULLED W 10MG ADMIN.
--- NOTE | 2021-07-17 05:36 | NUR ---
PT REPORTS FELING ABDOMINAL PAIN. PT RELATES PAIN TO NOT EATING, PT PROVIDED Cash SILVER. RENUKA WOOD TO MONITOR.
[2021-07-17] MEDS: ONDANSETRON 4 MG/2 ML VIAL IM/IVP PRN (06:01)
[2021-07-17] MEDS: HYDROcodone/APAP 7.5/325 MG 1 TAB PO PRN (06:01)
--- NOTE | 2021-07-17 06:01 | NUR ---
PT C/O OF 8/10 ABDOMINAL PAIN AND NAUSEA. PT MEDICATED FOR PAINAND NAUSEA.
--- NOTE | 2021-07-17 06:33 | NUR ---
SPOKE W PT SON DARLENE TO PROVIDE UPDATE ON PT STATUS.
[2021-07-17 06:43] LABS: BASOPHILS # (AUTO) 0.1 K/uL (0.00-0.22); BASOPHILS % (AUTO) 0.6 % (0.0-2.0); EOSINOPHILS # (AUTO) 0.2 K/uL (0-0.4); EOSINOPHILS % (AUTO) 2.1 % (0.0-4.0); HEMATOCRIT 37.6 % (36-48); HEMOGLOBIN 12.9 g/dL (12.0-16.0); LYMPHOCYTES # (AUTO) 1.4 K/uL (2.5-16.5); LYMPHOCYTES % (AUTO) 14.9 % (20.5-51.1); MEAN CORPUSCULAR HEMOGLOBIN 32 pg (27-31); MEAN CORPUSCULAR HGB CONC 34 g/dL (33-37); MEAN CORPUSCULAR VOLUME 93.5 fL (80-94); MONOCYTES # (AUTO) 0.7 K/uL (0.8-1.0); NEUTROPHILS # (AUTO) 7.2 K/uL (1.8-7.7); NEUTROPHILS % (AUTO) 75.4 % (42.2-75.2); PLATELET COUNT (AUTO) 220 K/uL (140-450); RED BLOOD CELL COUNT(AUTO) 4.03 MIL/uL (4.20-5.40); WHITE BLOOD COUNT (AUTO) 9.5 K/uL (4.8-10.8)
[2021-07-17 07:13] LABS: ANION GAP 13.1 (8-16); CARBON DIOXIDE 25.5 mmol/L (21-32); CHLORIDE 95 mmol/L (98-107); CREATININE 0.5 mg/dL (0.6-1.3); GLUCOSE 132 mg/dL (74-106); POTASSIUM 3.6 mmol/L (3.5-5.1); SODIUM SERUM 130 mmol/L (136-145); UREA NITROGEN, BLOOD 5 mg/dL (7-18)
--- NOTE | 2021-07-17 07:25 | NUR ---
Pt report given to GINA MNOIQUE. Transfer of care at this time.
--- NOTE | 2021-07-17 07:47 | NUR ---
RECEIVED REPORT FROM ENEIDA FROM ER. PT. TRANSFERRING FROM ER.
--- NOTE | 2021-07-17 08:05 | NUR ---
Patient will be admitted to care of DR MACHADO. Admited to TELE. Will go to room 105B. Belongings list completed. Report to MARGARITA FUENTES.
--- NOTE | 2021-07-17 08:05 | NUR ---
PT. ARRIVAL ON UNIT VIA GURNEY. RECEIVED PT. IN BED. PROVIDE ALL COMFORT MEASURES. ATTENDED ALL NEEDS. PT. ALERT, STABLE ON ROOM AIR. NO ANY DISTRESS OBSERVED. ALL SAFETY MEASURES PROVIDED. CALL LIGHT WITHIN REACH.. WILL CONTINUE TO MONITOR THE PT.
[2021-07-17 08:15] VITALS: BP 138/74
[2021-07-17] MEDS ORDERED: PANTOPRAZOLE 40 MG TABEC PO SCH (09:00)
--- NOTE | 2021-07-17 09:00 | NUR ---
PATIENT HAS BEEN SCREENED AND CATEGORIZED HIGH NUTRITION RISK. PATIENT WILL BE SEEN WITHIN 1-2 DAYS OF ADMISSION. 07/17/[address]
[2021-07-17] MEDS: METOPROLOL SUCCINATE 50 MG TABER PO SCH (09:15)
[2021-07-17] MEDS: amLODIPine 5 MG TAB PO SCH (09:16)
[2021-07-17] MEDS: ASPIRIN 325 MG TAB PO SCH (09:18)
[2021-07-17] MEDS: busPIRone 5 MG TAB PO SCH (09:18)
[2021-07-17] MEDS: PANTOPRAZOLE 40 MG TABEC PO SCH (09:19)
[2021-07-17] MEDS: GABAPENTIN 100 MG CAP PO SCH (09:20)
[2021-07-17] MEDS: lisinopriL 20 MG TAB PO SCH (09:22)
[2021-07-17] MEDS: SODIUM CHLORIDE 1 GM TAB PO SCH (09:33)
--- NOTE | 2021-07-17 10:00 | NUR ---
ADMINISTERED DUE MEDICATION, PT. TOLERATED WELL. STABLE AND NOT IN ANY DISTRESS NOTED. CALL LIGHT WITHIN TEACH. WILL CONTINUE TO MONITOR THE PT.
[2021-07-17 12:00] VITALS: BP 126/70
--- NOTE | 2021-07-17 14:09 | NUR ---
07/17/21 RD INITIAL ASSESSMENT COMPLETED PLEASE REFER TO NUTRITION ASSESSMENT UNDER CARE ACTIVITY FOR ESTIMATED NUTRITIONAL NEEDS. 1. CONTINUE CARDIAC DIET TOLERATED -IF PO INTAKE IS < 75%, RECOMMEND ENSURE BID PER PROTOCOL 2. RD TO FOLLOW-UP 3-5 DAYS, MODERATE RISK (DOWNGRADED D/T PT EATING WELL WITH NO GI SYMPTOMS) [address]
[2021-07-17 16:00] VITALS: BP 151/99
--- NOTE | 2021-07-17 19:33 | NUR ---
ENDORSED REPORT TO PM SHIFT RN FOR CONTINUITY OF CARE.PT. STABLE.
[2021-07-17 20:00] VITALS: BP 124/57
[2021-07-17] MEDS: AMITRIPTYLINE 10 MG TAB PO SCH (21:00)
[2021-07-17] MEDS: ATORVASTATIN 20 MG TAB PO SCH (21:00)
[2021-07-18 04:00] VITALS: BP 142/101
--- NOTE | 2021-07-18 05:25 | NUR ---
PT C/O OF "LOW BLOOD SUGAR". BLOOD SUGAR 106. PT REQUESTED SANDWICH - GIVEN. WILL MONITOR FOR ANY S/SX OF LOW BLOOD SUGAR. CALL LIGHT IN REACH.
[2021-07-18 06:15] LABS: BASOPHILS # (AUTO) 0.1 K/uL (0.00-0.22); BASOPHILS % (AUTO) 0.8 % (0.0-2.0); EOSINOPHILS # (AUTO) 0.5 K/uL (0-0.4); EOSINOPHILS % (AUTO) 6.6 % (0.0-4.0); HEMATOCRIT 38.2 % (36-48); HEMOGLOBIN 13.1 g/dL (12.0-16.0); LYMPHOCYTES # (AUTO) 1.6 K/uL (2.5-16.5); LYMPHOCYTES % (AUTO) 21.5 % (20.5-51.1); MEAN CORPUSCULAR HEMOGLOBIN 32 pg (27-31); MEAN CORPUSCULAR HGB CONC 34 g/dL (33-37); MEAN CORPUSCULAR VOLUME 93.8 fL (80-94); MONOCYTES # (AUTO) 0.6 K/uL (0.8-1.0); MONOCYTES % (AUTO) 8.4 % (1.7-9.3); NEUTROPHILS # (AUTO) 4.7 K/uL (1.8-7.7); NEUTROPHILS % (AUTO) 62.7 % (42.2-75.2); PLATELET COUNT (AUTO) 248 K/uL (140-450); RED BLOOD CELL COUNT(AUTO) 4.08 MIL/uL (4.20-5.40); WHITE BLOOD COUNT (AUTO) 7.5 K/uL (4.8-10.8)
[2021-07-18 06:24] LABS: ANION GAP 11.1 (8-16); CARBON DIOXIDE 26.6 mmol/L (21-32); CHLORIDE 100 mmol/L (98-107); CREATININE 0.5 mg/dL (0.6-1.3); GLUCOSE 114 mg/dL (74-106); POTASSIUM 3.7 mmol/L (3.5-5.1); SODIUM SERUM 134 mmol/L (136-145); UREA NITROGEN, BLOOD 7 mg/dL (7-18)
[2021-07-18] MEDS: HYDROcodone/APAP 7.5/325 MG 1 TAB PO PRN ×2 (06:52→21:58)
[2021-07-18] MEDS: ONDANSETRON 4 MG/2 ML VIAL IM/IVP PRN (06:53)
--- NOTE | 2021-07-18 07:15 | NUR ---
RECEIVED ENDORSEMENT FROM [facility] FOR CONTINUITY OF CARE.
[2021-07-18 08:00] VITALS: BP 140/72
--- NOTE | 2021-07-18 08:00 | NUR ---
Patient's Plan of Care was discussed and reviewed with PURA: KIM
[2021-07-18] MEDS: amLODIPine 5 MG TAB PO SCH (09:30)
[2021-07-18] MEDS: SODIUM CHLORIDE 1 GM TAB PO SCH (09:30)
[2021-07-18] MEDS: ASPIRIN 325 MG TAB PO SCH (09:30)
[2021-07-18] MEDS: busPIRone 5 MG TAB PO SCH (09:30)
--- NOTE | 2021-07-18 09:30 | NUR ---
PT ALERT ABLE TO MAKE NEEDS KNOWN. MEXICAN SPEAKING. DENIES PAIN GIVEN ALL ORAL MEDICATION ORDERED. TOLERATED WELL. ALL SAFETY MEASURE IN PLACE.
[2021-07-18] MEDS: lisinopriL 20 MG TAB PO SCH (09:31)
[2021-07-18] MEDS: GABAPENTIN 100 MG CAP PO SCH (09:31)
[2021-07-18] MEDS: METOPROLOL SUCCINATE 50 MG TABER PO SCH (09:31)
[2021-07-18] MEDS: PANTOPRAZOLE 40 MG TABEC PO SCH (09:31)
--- NOTE | 2021-07-18 11:30 | NUR ---
PT ON HER ROOM ON STABLE CONDITION SITING ON CHAIR. ALL SAFETY MEASURE IN PLACE. CALL LIGHT WITH IN EASY REACH.
--- NOTE | 2021-07-18 12:30 | NUR ---
LEFT MESSAGE TO THAT PT IS DIABETIC BUT NO BLOOD SUGAR CHECKED. ASKED IF WE CAN CHECK PT BLOOD SUGAR.
[2021-07-18] MEDS: NACL 0.9% 1,000 ML IV SCH (12:45)
--- NOTE | 2021-07-18 13:00 | NUR ---
PT ALERT GOES TO TOILET AND IV WAS PULLED OUT ACCIDENTALLY.
--- NOTE | 2021-07-18 14:00 | NUR ---
PUT NEW IV SITE ON LEFT ARM NO ADVERSE REACTION NOTED ON ANTIBIOTIC.
--- NOTE | 2021-07-18 16:00 | NUR ---
PT CALLED AND ASSISTED TO GO TO TOILET. STAY SITTED ON CHAIR AFTER THAT. CALL LIGHT WITH IN EASY REACH.
[2021-07-18] MEDS: ACETAMINOPHEN 325 MG TAB PO PRN (16:38)
--- NOTE | 2021-07-18 18:50 | NUR ---
PT REMAINED STABLE THROUGHOUT SHIFT
--- NOTE | 2021-07-18 19:30 | NUR ---
GAVE REPORT TO NIGHTSHIFT NURSE FOR CONTINUITY OF CARE.
--- NOTE | 2021-07-18 19:31 | NUR ---
RECD. RESTING IN BED, AWAKE, A/OX4. RESPIRATION EVEN AND UNLABORED. IV OF NS INFUSING AT 60 ML/HR, LEFT FOREARM G24. SAFETY MEASURES ENFORCED. BED IN THE LOWEST POSITION, SIDE RAILS UP, CALL LIGHT IN REACH. USES THE BSC BY HERSELF. INSTRUCTED TO CALL NURSE WHENEVER NEEDING HELP. VERBALIZED UNDERSTANDING. DENIES PAIN 0/10.
--- NOTE | 2021-07-18 19:45 | NUR ---
PATIENT PLAN OF CARE DISCUSSED AND REVIEWED WITH PURA PENDLETON.
--- NOTE | 2021-07-18 20:05 | NUR ---
IV INFILTRATED. WILL INSERT NEW IV LINE.
[2021-07-18] MEDS: ATORVASTATIN 20 MG TAB PO SCH (21:40)
[2021-07-18] MEDS: AMITRIPTYLINE 10 MG TAB PO SCH (21:41)
--- NOTE | 2021-07-18 21:41 | NUR ---
SCHEDULED MEDICATIONS FOR THE NIGHT ADMINISTERED. TOLERATED WELL.
[2021-07-18 23:39] VITALS: BP 124/69
--- NOTE | 2021-07-19 00:40 | NUR ---
AWAKE IN BED, COMPLAINING THAT SHE FEELS HER BP IS HIGH, WANTS TO TAKE LISINOPRIL THAT SHE TAKES AT HOME AT NIGHT. EXPLAINED THAT SHE HAS ALREADY TAKEN HER LISINOPRIL IN THE MORNING. STILL VERY INSISTENT TO TAKE IT, STATED THAT IF SHE WILL NOT BE ABLE TO TAKE IT SHE MIGHT HAVE A HEART ATTACK. ADVISED TO CALM DOWN AND WILL INFORM MD.
[2021-07-19] MEDS ORDERED: lisinopriL 20 MG TAB PO SCH (01:30)
--- NOTE | 2021-07-19 01:30 | NUR ---
NEW IV LINE INSERTED BY GINA DODGE AT THE LEFT FOREARM G22.
--- NOTE | 2021-07-19 01:37 | NUR ---
ADMINISTERED LISINOPRIL X 1 DOSE PER MD ORDER. BP - 131/69, HR - 89.
--- NOTE | 2021-07-19 02:30 | NUR ---
RESTING COMFORTABLY SLEEPING IN BED, RESPIRATION EVEN AND UNLABORED. CALL LIGHT IN REACH.
[2021-07-19 04:00] VITALS: BP 132/69
--- NOTE | 2021-07-19 04:00 | NUR ---
BP CHECKED - 142/76, HR - 86. NO COMPLAINT OF PAIN, 0/10.
[2021-07-19] MEDS: NACL 0.9% 1,000 ML IV SCH (05:25)
[2021-07-19 06:41] LABS: ANION GAP 10.3 (8-16); CHLORIDE 102 mmol/L (98-107); CREATININE 0.5 mg/dL (0.6-1.3); GLUCOSE 94 mg/dL (74-106); POTASSIUM 4.3 mmol/L (3.5-5.1); SODIUM SERUM 138 mmol/L (136-145); UREA NITROGEN, BLOOD 14 mg/dL (7-18)
[2021-07-19 06:45] LABS: BASOPHILS # (AUTO) 0.1 K/uL (0.00-0.22); BASOPHILS % (AUTO) 0.8 % (0.0-2.0); EOSINOPHILS # (AUTO) 0.5 K/uL (0-0.4); EOSINOPHILS % (AUTO) 8.5 % (0.0-4.0); HEMATOCRIT 34.6 % (36-48); HEMOGLOBIN 11.7 g/dL (12.0-16.0); LYMPHOCYTES # (AUTO) 1.9 K/uL (2.5-16.5); LYMPHOCYTES % (AUTO) 30.3 % (20.5-51.1); MEAN CORPUSCULAR HEMOGLOBIN 32 pg (27-31); MEAN CORPUSCULAR HGB CONC 34 g/dL (33-37); MEAN CORPUSCULAR VOLUME 94.9 fL (80-94); MONOCYTES # (AUTO) 0.6 K/uL (0.8-1.0); MONOCYTES % (AUTO) 8.9 % (1.7-9.3); NEUTROPHILS # (AUTO) 3.3 K/uL (1.8-7.7); NEUTROPHILS % (AUTO) 51.5 % (42.2-75.2); PLATELET COUNT (AUTO) 231 K/uL (140-450); RED BLOOD CELL COUNT(AUTO) 3.64 MIL/uL (4.20-5.40); RED CELL DISTRIBUTION WIDTH 14.3 % (11.6-13.7); WHITE BLOOD COUNT (AUTO) 6.4 K/uL (4.8-10.8)
--- NOTE | 2021-07-19 07:09 | NUR ---
CONDITION REMAIN STABLE. ENDORSED TO AM SHIFT NURSE FOR CONTINUITY OF CARE.
--- NOTE | 2021-07-19 07:10 | NUR ---
RECEIVED REPORT FROM CORDAGE SALES REPRESENTATIVE NURSE. PT IN BED SITTING AT THE EDGE OF THE BED COMPLAINING THAT SHE IS TIRED OF BEING IN BED AND WANTS TO GET UP. RESPIRATIONS ARE EVEN AND UNLABORED. NO SIGNS OF DISTRESS NOTED. CALL LIGHT WITHIN REACH. ALL SAFETY MEASURES IN PLACE. WILL CONTINUE TO MONITOR.
[2021-07-19 08:00] VITALS: BP 133/67
[2021-07-19] MEDS: GABAPENTIN 100 MG CAP PO SCH (08:39)
[2021-07-19] MEDS: ASPIRIN 325 MG TAB PO SCH (08:39)
[2021-07-19] MEDS: PANTOPRAZOLE 40 MG TABEC PO SCH (08:40)
[2021-07-19] MEDS: METOPROLOL SUCCINATE 50 MG TABER PO SCH (08:40)
[2021-07-19] MEDS: SODIUM CHLORIDE 1 GM TAB PO SCH (08:40)
[2021-07-19] MEDS: amLODIPine 5 MG TAB PO SCH (08:40)
[2021-07-19] MEDS: lisinopriL 20 MG TAB PO SCH (08:41)
[2021-07-19] MEDS: busPIRone 5 MG TAB PO SCH (08:41)
[2021-07-19] MEDS ORDERED: PANT40EC56 PO (09:18)
--- NOTE | 2021-07-19 11:12 | NUR ---
PT STATES SHE WOULD LIKE TO WALK AROUND ROOM. ASSISTED PT. PT TOLERATED WELL. NO COMPLAINTS OF PAIN OR DISCOMFORT. PT HAS DISCHARGE ORDER. WILL BEGIN DISCHARGE PAPERWORK.
[2021-07-19 13:02] VITALS: BP 133/67
--- NOTE | 2021-07-19 13:39 | NUR ---
WENT OVER DISCHARGE PAPERWORK WITH PT. ANSWERED ALL QUESTIONS. PT SIGNED ALL PAPERWORK. PT STATES SHE IS WAITING FOR HER SON TO COME AND PICK HER UP. WILL CONTINUE TO MONITOR.
--- NOTE | 2021-07-19 14:22 | NUR ---
PT DISCHARGED HOME. IV REMOVED. IV CATHETER INTACT. WRIST BAND REMOVED. PT PICKED UP BY FAMILY. ALL BELONGINGS TAKEN UPON DISCHARGE.
== END 2021-07-19 14:26 | disposition home or self-care (01) | DRG 871 ==
LOC: MED 06:04 → MTU 10:19 → MED 11:47 → MTU 07-17 05:22
PROVIDERS: ADMIT Family Medicine; ATTEND Family Medicine
DX: A41.9 Sepsis, unspecified organism (principal); G93.41 Metabolic encephalopathy; E87.1 Hypo-osmolality and hyponatremia; N39.0 Urinary tract infection, site not specified; I50.30 Unspecified diastolic (congestive) heart failure; E78.5 Hyperlipidemia, unspecified; E86.0 Dehydration; I10 Essential (primary) hypertension; J45.909 Unspecified asthma, uncomplicated; Z96.653 Presence of artificial knee joint, bilateral; I27.20 Pulmonary hypertension, unspecified; I08.3 Combined rheumatic disorders of mitral, aortic and tricuspid valves; E11.9 Type 2 diabetes mellitus without complications; F10.129 Alcohol abuse with intoxication, unspecified; E66.9 Obesity, unspecified; K21.9 Gastro-esophageal reflux disease without esophagitis; R74.01 Elevation of levels of liver transaminase levels; Z20.822 Contact with and (suspected) exposure to COVID-19; Z79.2 Long term (current) use of antibiotics; Z79.82 Long term (current) use of aspirin; Z79.899 Other long term (current) drug therapy; Z84.89 Family history of other specified conditions; Z82.49 Family history of ischemic heart disease and other diseases of the circulatory system; Z83.3 Family history of diabetes mellitus; Z71.3 Dietary counseling and surveillance; Z68.29 Body mass index [BMI] 29.0-29.9, adult
CPT/HCPCS: 36415; 71045; 80048; 80053; 81001; 82009; 82150; 82948; 83036; 83605; 83690; 83735; 83880; 84100; 84436; 84439; 84443; 84479; 84484; 85025; 85610; 85730; 87081; 93005; 96361; 96374; 96375; 97116; 97163-GP; 99285; G0482; J0360; J0696; J1200; J2060; J2250; J2270; J2405; J2765; J7030; J7060; Q0092

== ENCOUNTER 2022-01-19 15:54 | Emergency (ER) | payer OTHER, MEDICAID ==
[~2022-01-19] VITALS: Ht 149.9 cm; Wt 65.3 kg
[~2022-01-19 15:54] MED LIST changes: -AZIT250T3 PO; -DEC1 PO; -FAMO-90 PO; -FLUT1DSK2 IH; +GABA100C PO; -LISI-486 PO; +LISI-487 PO; +METO100T14 PO; -METO25TA PO; +PANT40EC56 PO; +ROSU20TA32 PO; -SODI100076 PO; -SUCR1TAB56 PO
[2022-01-19 16:05] VITALS: BP 143/81
--- NOTE | 2022-01-19 16:44 | NUR ---
bib son c/o dizziness, 7/10 headache, weakness, SOB x 2 days. BLOOD SUGAR 134 AT THIS TIME. PMH: DM, STROKE, HTN, ASTHMA, HLD
--- NOTE | 2022-01-19 18:35 | NUR ---
PT W/C ASSISTED TO BED 12.
--- NOTE | 2022-01-19 18:47 | NUR ---
Patient being evaluated by DR WILLS at bedside.
[2022-01-19] MEDS ORDERED: predniSONE 20 MG TAB PO ONE (18:50)
[2022-01-19] MEDS ORDERED: ALBUTEROL 0.083% 2.5 MG/3 ML NEBU INH ONE (18:50)
[2022-01-19] MEDS ORDERED: ALBUTEROL SULFATE/IPRATROPIU 3 ML SOL IH ONE (18:50)
[2022-01-19 19:12] LABS: BASOPHILS # (AUTO) 0.1 K/uL (0.00-0.22); BASOPHILS % (AUTO) 0.9 % (0.0-2.0); EOSINOPHILS # (AUTO) 0.5 K/uL (0-0.4); EOSINOPHILS % (AUTO) 5.2 % (0.0-4.0); HEMATOCRIT 39.3 % (36-48); HEMOGLOBIN 13.4 g/dL (12.0-16.0); LYMPHOCYTES # (AUTO) 2.9 K/uL (2.5-16.5); MEAN CORPUSCULAR HEMOGLOBIN 32 pg (27-31); MEAN CORPUSCULAR HGB CONC 34 g/dL (33-37); MEAN CORPUSCULAR VOLUME 94.1 fL (80-94); MONOCYTES # (AUTO) 0.7 K/uL (0.8-1.0); MONOCYTES % (AUTO) 8.1 % (1.7-9.3); NEUTROPHILS # (AUTO) 4.9 K/uL (1.8-7.7); NEUTROPHILS % (AUTO) 53.8 % (42.2-75.2); PLATELET COUNT (AUTO) 259 K/uL (140-450); RED BLOOD CELL COUNT(AUTO) 4.17 MIL/uL (4.20-5.40); RED CELL DISTRIBUTION WIDTH 14.8 % (11.6-13.7)
[2022-01-19 19:33] LABS: ALBUMIN 3.7 g/dL (3.4-5.0); ANION GAP 11.6 (8-16); ASPARTATE AMINOTRANSFERASE 19 U/L (15-37); CARBON DIOXIDE 24.7 mmol/L (21-32); CHLORIDE 106 mmol/L (98-107); CREATININE 0.6 mg/dL (0.6-1.3); GLUCOSE 100 mg/dL (74-106); POTASSIUM 4.3 mmol/L (3.5-5.1); SODIUM SERUM 138 mmol/L (136-145); TOTAL BILIRUBIN 0.3 mg/dL (0.0-1.0); UREA NITROGEN, BLOOD 13 mg/dL (7-18)
--- NOTE | 2022-01-19 19:40 | NUR ---
rt at bedside for breathing treatment
[2022-01-19] MEDS ORDERED: PRED20TA5 PO (20:03)
[2022-01-19 20:28] VITALS: BP 168/76
--- NOTE | 2022-01-19 20:29 | NUR ---
Patient discharged with v/s stable. Written and verbal after care instructions given and explained. Patient alert, oriented and verbalized understanding of instructions. Wheel Chair Assisted with to car. All questions addressed prior to discharge. ID band removed. Patient advised to follow up with PMD. Rx of DELTASONE given. Patient educated on indication of medication including possible reaction and side effects. Opportunity to ask questions provided and answered. VSS, A/OX4, UNLABORED BREATHING, AND CALM DEMEANOR.
== END 2022-01-19 20:29 | disposition home or self-care (01) ==
LOC: MED 15:54
DX: J45.909 Unspecified asthma, uncomplicated (principal); I10 Essential (primary) hypertension; E11.9 Type 2 diabetes mellitus without complications; Z79.4 Long term (current) use of insulin; Z79.899 Other long term (current) drug therapy; Z98.890 Other specified postprocedural states
CPT/HCPCS: 36415; 71045; 80053; 81002; 82948; 85025; 93005; 94640; 99285; J7512; J7613

== ENCOUNTER 2022-02-20 16:42 | Emergency (ER) | payer OTHER, MEDICAID ==
[~2022-02-20] VITALS: Ht 162.6 cm; Wt 66.7 kg
[~2022-02-20 16:42] MED LIST changes: +PRED20TA5 PO
[2022-02-20 16:57] VITALS: BP 142/67
[2022-02-20] MEDS ORDERED: NACL 0.9% 1,000 ML IV ONE (17:20)
--- NOTE | 2022-02-20 17:37 | NUR ---
PROSTHETICS LAB TECHNICIAN AT BEDSIDE
[2022-02-20 17:45] LABS: BASOPHILS # (AUTO) 0.1 K/uL (0.00-0.22); BASOPHILS % (AUTO) 0.9 % (0.0-2.0); EOSINOPHILS # (AUTO) 0.4 K/uL (0-0.4); EOSINOPHILS % (AUTO) 4.6 % (0.0-4.0); HEMATOCRIT 41.6 % (36-48); HEMOGLOBIN 13.9 g/dL (12.0-16.0); LYMPHOCYTES # (AUTO) 2.9 K/uL (2.5-16.5); LYMPHOCYTES % (AUTO) 32.6 % (20.5-51.1); MEAN CORPUSCULAR HEMOGLOBIN 32 pg (27-31); MEAN CORPUSCULAR HGB CONC 33 g/dL (33-37); MEAN CORPUSCULAR VOLUME 94.6 fL (80-94); MONOCYTES # (AUTO) 0.7 K/uL (0.8-1.0); MONOCYTES % (AUTO) 7.7 % (1.7-9.3); NEUTROPHILS # (AUTO) 4.8 K/uL (1.8-7.7); NEUTROPHILS % (AUTO) 54.2 % (42.2-75.2); PLATELET COUNT (AUTO) 269 K/uL (140-450); RED BLOOD CELL COUNT(AUTO) 4.39 MIL/uL (4.20-5.40); WHITE BLOOD COUNT (AUTO) 8.8 K/uL (4.8-10.8)
[2022-02-20 18:08] LABS: ALBUMIN 3.6 g/dL (3.4-5.0); ANION GAP 14.3 (8-16); ASPARTATE AMINOTRANSFERASE 21 U/L (15-37); CARBON DIOXIDE 25.7 mmol/L (21-32); CHLORIDE 104 mmol/L (98-107); CREATININE 0.7 mg/dL (0.6-1.3); GLUCOSE 123 mg/dL (74-106); SODIUM SERUM 140 mmol/L (136-145); TOTAL BILIRUBIN 0.3 mg/dL (0.0-1.0); UREA NITROGEN, BLOOD 20 mg/dL (7-18)
--- NOTE | 2022-02-20 18:35 | NUR ---
76/F BIB SON TO ED WITH C/O FATIGUE X3 DAYS AND CHEST PAIN TODAY. SON STATES PATIENT WAS SEEN AT URGENT CARE TODAY AND WAS REFERRED TO ED FOR FURTHER EVALUATION. PATIENT REPORTS 8/10 MID CHEST PAIN WITHOUT RADIATION, DENIES NUMBNESS, N/V/D, SOB OR COUGH. STATES SIMILAR SYMPTOMS IN THE PAST AND WAS TOLD HER NA AND K LEVELS WERE LOW.
--- NOTE | 2022-02-20 19:22 | NUR ---
Pt report given to GINA WATSON. Transfer of care at this time.
--- NOTE | 2022-02-20 19:47 | NUR ---
Dr. Peres examining patient.
[2022-02-20] MEDS ORDERED: IBUP-2213 PO (19:54)
[2022-02-20 20:10] VITALS: BP 129/66
--- NOTE | 2022-02-20 20:11 | NUR ---
Patient discharged with v/s stable. Written and verbal after care instructions given and explained. Patient verbalized understanding. Wheel Chair Assisted with to wr. All questions addressed prior to discharge. Advised to follow up with PMD.
== END 2022-02-20 20:11 | disposition home or self-care (01) ==
LOC: MED 16:42
DX: R07.9 Chest pain, unspecified (principal); J45.909 Unspecified asthma, uncomplicated; I10 Essential (primary) hypertension; Z79.899 Other long term (current) drug therapy; Z98.890 Other specified postprocedural states
CPT/HCPCS: 36415; 71045; 80053; 81002; 83880; 84484; 85025; 93005; 96360; 99285; J7030

== ENCOUNTER 2022-09-17 16:03 | Inpatient (IN) | payer OTHER, MEDICAID ==
[~2022-09-17] VITALS: Ht 157.5 cm; Wt 70.3 kg
[~2022-09-17 16:03] MED LIST changes: +IBUP-2213 PO
[2022-09-17 16:29] VITALS: BP 127/52
--- NOTE | 2022-09-17 16:32 | NUR ---
PT W/C ASSISTED TO ER BED 6
--- NOTE | 2022-09-17 16:36 | NUR ---
DR HI AT BEDSIDE EVALUATING PT
[2022-09-17 17:02] LABS: BASOPHILS # (AUTO) 0.1 K/uL (0.00-0.22); BASOPHILS % (AUTO) 0.8 % (0.0-2.0); EOSINOPHILS # (AUTO) 0.4 K/uL (0-0.4); EOSINOPHILS % (AUTO) 4.9 % (0.0-4.0); HEMATOCRIT 37.4 % (36-48); HEMOGLOBIN 12.8 g/dL (12.0-16.0); LYMPHOCYTES # (AUTO) 3.1 K/uL (2.5-16.5); LYMPHOCYTES % (AUTO) 38.1 % (20.5-51.1); MEAN CORPUSCULAR HEMOGLOBIN 32 pg (27-31); MEAN CORPUSCULAR HGB CONC 34 g/dL (33-37); MEAN CORPUSCULAR VOLUME 93.8 fL (80-94); MONOCYTES # (AUTO) 0.6 K/uL (0.8-1.0); NEUTROPHILS # (AUTO) 4.1 K/uL (1.8-7.7); NEUTROPHILS % (AUTO) 49.2 % (42.2-75.2); PLATELET COUNT (AUTO) 262 K/uL (140-450); RED BLOOD CELL COUNT(AUTO) 3.98 MIL/uL (4.20-5.40); WHITE BLOOD COUNT (AUTO) 8.2 K/uL (4.8-10.8)
--- NOTE | 2022-09-17 17:19 | NUR ---
76 Y/O FEMALE BIB C/O SEIZURES, GEN WEAK AND ALOC. PER 3 WITNESSED TONIC CLONIC SEIZURES AND ALOC STARTING AT 1400 TODAY. PER , PT MIGHT HAVE BEEN DRINKING ALCOHOL X2 WEEKS. LAST SEIZURE A FEW YEARS AGO, PER SEIZURE WAS D/T LOW SODIUM. NKA PMH: HTN, DM
--- NOTE | 2022-09-17 17:20 | NUR ---
PT NOTED TO BE SATTING AT 77% RA, PLACED ON NASAL CANNULA 5LPM. DR HI MADE AWARE
[2022-09-17 17:26] LABS: ALBUMIN 3.4 g/dL (3.4-5.0); ANION GAP 16.4 (8-16); ASPARTATE AMINOTRANSFERASE 50 U/L (15-37); CARBON DIOXIDE 21.5 mmol/L (21-32); CHLORIDE 87 mmol/L (98-107); CREATININE 0.8 mg/dL (0.6-1.3); LIPASE 178 U/L (73-393); MAGNESIUM 1.6 mg/dL (1.8-2.4); PHOSPHORUS 3.9 mg/dL (2.5-4.9); POTASSIUM 3.9 mmol/L (3.5-5.1); SODIUM SERUM 121 mmol/L (136-145); TOTAL BILIRUBIN 0.4 mg/dL (0.0-1.0); UREA NITROGEN, BLOOD 4 mg/dL (7-18)
--- NOTE | 2022-09-17 17:33 | NUR ---
PT DECREASED O2 TO 1LPM NC, SATTING 99%
[2022-09-17] MEDS ORDERED: NACL 3% 150 ML IV ONE (17:45)
[2022-09-17 17:54] LABS: GLUCOSE 91 mg/dL (74-106)
[2022-09-17] MEDS ORDERED: LORazepam 2 MG/ML VIAL IVP ONE (18:15)
--- NOTE | 2022-09-17 19:15 | NUR ---
SON DARLENE INFORMED OF PT STATUS AND ADMISSION
--- NOTE | 2022-09-17 19:18 | NUR ---
Pt report given to ROLLY FUENTES. Transfer of care at this time.
--- NOTE | 2022-09-17 19:35 | NUR ---
Patient resting in bed, awake, confused, chest rise and fall symmetrical, no c/o pain or s/s of distress, on monitor, seizure pads in place.
--- NOTE | 2022-09-17 19:36 | NUR ---
Note chary in EDM - 09/17/22 at 1942 by [id number] Patient resting in bed, A/Ox4, chest rise and fall symmetrical, no c/o pain or s/s of distress, on monitor, seizure pads in place.
--- NOTE | 2022-09-17 19:41 | NUR ---
Patient unable to verbalize home medications. Patient's son unable to verbalize home medications.
[2022-09-17] MEDS ORDERED: LORazepam 2 MG/ML VIAL IVP PRN ×2 (20:00→20:25)
[2022-09-17] MEDS ORDERED: NACL 0.9% 1,000 ML IV SCH (20:00)
[2022-09-17] MEDS ORDERED: POTASSIUM CHLORIDE 10 MEQ TABER PO PRN (20:20)
[2022-09-17] MEDS ORDERED: DOCUSATE SODIUM 100 MG GELCAP PO PRN (20:20)
[2022-09-17] MEDS ORDERED: ACETAMINOPHEN 325 MG TAB PO PRN (20:20)
[2022-09-17] MEDS ORDERED: HYDROcodone/APAP 7.5/325 MG 1 TAB PO PRN (20:20)
[2022-09-17] MEDS ORDERED: ONDANSETRON 4 MG/2 ML VIAL IM/IVP PRN (20:20)
[2022-09-17] MEDS ORDERED: guaiFENesin DM 200/20 MG-10 ML 10 ML UDC PO PRN (20:20)
[2022-09-17] MEDS ORDERED: ZOLPIDEM 5 MG TAB PO PRN (20:20)
[2022-09-17] MEDS ORDERED: MULTIVITAMIN-12 10 ML, FOLIC ACID 1 MG in DEXT 5% / LACT RING 1,000 ML IV ONE (20:25)
[2022-09-17] MEDS: NACL 0.9% 1,000 ML IV SCH (20:32)
[2022-09-17] MEDS ORDERED: MULTIVITAMIN-12 10 ML VIAL IV ONE (20:43)
[2022-09-17] MEDS: LORazepam 1 MG TAB PO SCH (20:48)
[2022-09-17] MEDS ORDERED: DEXTROSE 50% 50 ML SYR IVP PRN (21:00)
[2022-09-17] MEDS ORDERED: levETIRAcetam 500 MG TAB PO SCH (21:00)
[2022-09-17] MEDS ORDERED: INSULIN LISPRO SLIDING SCALE 100 UNITS/ML VIAL SUBQ PRN (21:00)
[2022-09-17] MEDS ORDERED: FOLIC ACID 5 MG/ML SYR ONE (21:01)
[2022-09-17] MEDS: BLOOD GLUCOSE MONITORING 1 DEV DEV FS SCH (21:06)
--- NOTE | 2022-09-17 21:20 | NUR ---
Patient resting in bed, awake, confused, chest rise and fall symmetrical, no c/o pain or s/s of distress, on monitor, seizure pads in place.
--- NOTE | 2022-09-17 21:24 | NUR ---
Patient will be admitted to care of Dr. Meredith. Admited to Tele. Will go to room 110B. Belongings list completed. Report to Delores FUENTES. Delores FUENTES verbalized understanding of report and she verbalized that she will "call packing house laborer to obtain Medication order 500mg Keppra in 100 ml NS."
[2022-09-17 21:38] LABS: AMYLASE 39 U/L (25-115); CHOL/HDL RATIO 4.7 (1-4.5); FREE T4 (FREE THYROXINE) 0.91 ng/dL (0.76-1.46); HDL CHOLESTEROL 56 mg/dL (40-60); LDL (CALC) 157 mg/dL (60-100); TRIGLYCERIDES 253 mg/dL (30-150)
[2022-09-17] MEDS ORDERED: levETIRAcetam 100 MG/ML VIAL IV ONE (21:52)
--- NOTE | 2022-09-17 21:55 | NUR ---
PT WAS ADMITT[facility] FROM ER [facility]RU [facility] WITH DIAGNOSIS OF HYPONATREMIA. PT IS AOX1, AND BEDBOUND. PT IS ON 2L NC AND ON REGULAR DIET. PT HAS IV ON LEFT HAND GAUGE 20 RUNNING WITH NS AT 120ML/HR AND LEFT AC GAUGE 20 RUNNING WITH BANANA BAG AT 100ML/HR. PT SKIN IS INTACT. NO S/S OF RESPIRATORY DISTRESS NOTED. ALL SAFETY MEASURES IMPLEMENTED. FALL AND SEIZURE PRECAUTION IMPLEMENTED. BED IN LOW POSITION, BED IN LOW POSITION, BED WHEELS ON LOCK AND CALL LIGHT WITHIN REACH.
[2022-09-17 22:03] LABS: THYROID STIMULATING HORMONE 3.12 uIU/mL (0.34-3.74)
[2022-09-17 22:05] LABS: PROTHROMBIN TIME 10.9 secs (10.8-13.4)
[2022-09-17] MEDS: levETIRAcetam 500 MG in NACL 0.9% 100 ML IV SCH (22:28)
--- NOTE | 2022-09-17 22:28 | NUR ---
SCHEDULED AND PRESCRIBED MEDICATION WAS GIVEN TO PT PER MD ORDER. ALL SAFETY AND SEIZURE PRECAUTION IMPLEMENTED. BED IN LOW POSITION, BED WHEELS ON LOCK AND CALL LIGHT WITHIN REACH.
--- NOTE | 2022-09-17 23:56 | NUR ---
NOTIFIED DR. MACHADO REGARDING PT'S MAGNESIUM OF 1.6. WILL WAIT FOR DOCTORS ORDER.
[2022-09-18] VITALS: BP 112/59
--- NOTE | 2022-09-18 02:00 | NUR ---
PT IS ON SLEEP. CHEST RISE AND FALL SYMMETRICALLY NOTED. RESPIRATION IS EVEN AND UNLABORED. ALL SAFETY AND SEIZURE PRECAUTION IMPLEMENTED. BED IN LOW POSITION, BED WHEELS ON LOCK AND CALL LIGHT WITHIN REACH.
[2022-09-18 04:00] VITALS: BP 146/55
--- NOTE | 2022-09-18 04:00 | NUR ---
MORNING CARE WAS GIVEN TO PT. CHANGED DIAPER, GOWN AND LINENS. ALL SAFETY AND SEIZURE PRECAUTION IMPLEMENTED. BED IN LOW POSITION, BED WHEELS ON LOCK AND CALL LIGHT WITHIN REACH.
[2022-09-18] MEDS: NACL 0.9% 1,000 ML IV SCH ×2 (04:40→04:43)
[2022-09-18] MEDS: LORazepam 1 MG TAB PO SCH ×3 (04:50→20:16)
--- NOTE | 2022-09-18 04:50 | NUR ---
SCHEDULED AND PRESCRIBED MEDICATION WAS GIVEN TO PT PER MD ORDER. ALL SAFETY MEASURES IMPLEMENTED. BED IN LOW POSITION, BED WHEELS ON LOCK AND CALL LIGHT WITHIN REACH.
[2022-09-18] MEDS: BLOOD GLUCOSE MONITORING 1 DEV DEV FS SCH ×4 (06:30→20:10)
--- NOTE | 2022-09-18 06:30 | NUR ---
PT BLOOD GLUCOSE IS 90. NO INSULIN COVERAGE NEEDED.
[2022-09-18 06:42] LABS: BASOPHILS % (AUTO) 0.4 % (0.0-2.0); EOSINOPHILS # (AUTO) 0.3 K/uL (0-0.4); EOSINOPHILS % (AUTO) 4.2 % (0.0-4.0); HEMATOCRIT 35.8 % (36-48); HEMOGLOBIN 12.2 g/dL (12.0-16.0); LYMPHOCYTES # (AUTO) 1.9 K/uL (2.5-16.5); LYMPHOCYTES % (AUTO) 30.9 % (20.5-51.1); MEAN CORPUSCULAR HEMOGLOBIN 32 pg (27-31); MEAN CORPUSCULAR HGB CONC 34 g/dL (33-37); MEAN CORPUSCULAR VOLUME 94.6 fL (80-94); MONOCYTES # (AUTO) 0.7 K/uL (0.8-1.0); NEUTROPHILS # (AUTO) 3.2 K/uL (1.8-7.7); NEUTROPHILS % (AUTO) 53.5 % (42.2-75.2); PLATELET COUNT (AUTO) 229 K/uL (140-450); RED BLOOD CELL COUNT(AUTO) 3.79 MIL/uL (4.20-5.40); RED CELL DISTRIBUTION WIDTH 14.4 % (11.6-13.7); WHITE BLOOD COUNT (AUTO) 6.1 K/uL (4.8-10.8)
[2022-09-18 07:11] LABS: ANION GAP 8.7 (8-16); CARBON DIOXIDE 27.1 mmol/L (21-32); CHLORIDE 103 mmol/L (98-107); GLUCOSE 95 mg/dL (74-106); POTASSIUM 3.8 mmol/L (3.5-5.1); SODIUM SERUM 135 mmol/L (136-145); UREA NITROGEN, BLOOD 4 mg/dL (7-18)
--- NOTE | 2022-09-18 07:26 | NUR ---
PT IS STABLE. ENDORSED PT TO MORNING SHIFT NURSE FOR CONTINUITY OF CARE.
--- NOTE | 2022-09-18 07:30 | NUR ---
RECEIVED REPORT FROM FAMILY DEVELOPMENT SPECIALIST NURSE. PATIENT ASLEEP WITH IVC INTACT, SKIN INTACT. ON ROOM AIR. REVIEWED PLAN OF CARE OF PATIENT AND WILL CONTINUE TO MONITOR. SAFETY MEASURES PROVIDED, CALL BUTTON WITHIN REACH.
[2022-09-18 08:00] VITALS: BP 119/51
--- NOTE | 2022-09-18 09:08 | NUR ---
PATIENT HAS BEEN SCREENED AND CATEGORIZED LOW NUTRITION RISK. PATIENT WILL BE SEEN WITHIN 7 DAYS OF ADMISSION. 09/17/22-09/24/[address] RE[address] FINN ST[address]
[2022-09-18] MEDS: MULTIVITAMIN 1 TAB PO SCH (09:24)
[2022-09-18] MEDS: FOLIC ACID 1 MG TAB PO SCH (09:24)
[2022-09-18] MEDS: PANTOPRAZOLE 40 MG TABEC PO SCH (09:24)
[2022-09-18] MEDS: THIAMINE 100 MG TAB PO SCH (09:25)
[2022-09-18] MEDS: levETIRAcetam 500 MG in NACL 0.9% 100 ML IV SCH ×2 (09:26→20:11)
--- NOTE | 2022-09-18 09:37 | NUR ---
SCHEDULED MEDS DUE GIVEN. LICENSED PSYCHIATRIC TECHNICIAN AT BEDSIDE. WILL CONTINUE TO MONITOR
[2022-09-18] MEDS ORDERED: MAG SULF 2000 MG/WATER PREMIX 50 ML IV SCH (10:00)
[2022-09-18] MEDS ORDERED: DEXTROSE 5% 500 ML IV SCH (11:14)
[2022-09-18 12:00] VITALS: BP 111/53
--- NOTE | 2022-09-18 12:11 | NUR ---
SCHEDULED MEDS GIVEN. WILL CONTINUE TO MONITOR.
--- NOTE | 2022-09-18 13:04 | NUR ---
SCHEDULED MEDS GIVEN. WILL CONTINUE TO MONITOR.
--- NOTE | 2022-09-18 13:10 | NUR ---
DC PLANNING ASSESSMENT COMPLETE PLEASE REFER TO ASSESSMENT FOR ADDITIONAL DETAILS DARLENE REPORTS TENTATIVE DC PLAN IS TO RETURN HOME, WITH FAMILY PROVIDING TRANSPORTATION, WHEN MEDICALLY STABLE. Addendum: 09/19/22 at 0838 by Alyssa ROSALES Amended: Links added.
[2022-09-18 15:12] LABS: ANION GAP 9.9 (8-16); CARBON DIOXIDE 26.3 mmol/L (21-32); CHLORIDE 104 mmol/L (98-107); CREATININE 0.9 mg/dL (0.6-1.3); GLUCOSE 115 mg/dL (74-106); POTASSIUM 4.2 mmol/L (3.5-5.1); SODIUM SERUM 136 mmol/L (136-145); UREA NITROGEN, BLOOD 5 mg/dL (7-18)
[2022-09-18 16:00] VITALS: BP 127/57
[2022-09-18 17:11] LABS: APPEARANCE,URINE CLEAR (CLEAR); BILIRUBIN,URINE NEGATIVE (NEGATIVE); BLOOD, URINE NEGATIVE (NEGATIVE); COLOR,URINE YELLOW (YELLOW); LEUKOCYTE ESTERASE ,URINE NEGATIVE (NEGATIVE); NITRITE, URINE NEGATIVE (NEGATIVE); PH,URINE 5.5 (5.0-9.0); UGLUCOSE NEGATIVE (NEGATIVE)
[2022-09-18 17:21] LABS: BARBITURATE, URINE NEGATIVE ng/ml (NEG <=200); BENZODIAZEPINE, URINE POSITIVE ng/mL (NEG <=200); CANNABINOID, URINE NEGATIVE ng/mL (NEG <=50); COCAINE, URINE NEGATIVE ng/mL (NEG <=300); OPIATE, URINE NEGATIVE ng/mL (NEG <=2000); PHENCYCLIDINE SCREEN,URINE NEGATIVE ng/mL (NEG <=25)
--- NOTE | 2022-09-18 19:15 | NUR ---
RECEIVED PATIENT LYING ON THE BED, PATIENT IS ALERT AND ORIENTED X3, PATIENT DENIES PAIN, DENIES SOB, VITALS TAKEN, IV ACCESS SITE ON LEFT AC AND LEFT HAND G20, PATENT AND INTACT. ALL SAFETY MEASURES IN PLACE.
[2022-09-18 20:00] VITALS: BP 115/60
[2022-09-18] MEDS: lisinopriL 20 MG TAB PO SCH (20:16)
--- NOTE | 2022-09-18 20:16 | NUR ---
SCHEDULED MEDICATIONS GIVEN ORDERED.
[2022-09-18 22:37] LABS: CREATININE,URINE RANDOM 24 mg/dL (30-125); URINE SODIUM, RANDOM 60 mmol/l (40-220)
--- NOTE | 2022-09-18 23:00 | NUR ---
PATIENT IS AWAKE, ALERT AND ORIENTED, DENIES PAIN, NO SIGNS OF DISTRESS NOTED. PATIENT ASKED THIS STAFF TO CHANGE HER BRIEFS, PATIENT HAS MEDIUM SOFT BM. ALL SAFETY MEASURES IN PLACE.
[2022-09-19] VITALS: BP 111/58
[2022-09-19 04:00] VITALS: BP 111/59
[2022-09-19] MEDS: LORazepam 1 MG TAB PO SCH (04:40)
--- NOTE | 2022-09-19 04:40 | NUR ---
SCHEDULED MEDICATIONS GIVEN ORDERED.
--- NOTE | 2022-09-19 06:30 | NUR ---
BLOOD SUGAR IS 102 MG/DL, NO INSULIN COVERAGE NEEDED.
[2022-09-19] MEDS: BLOOD GLUCOSE MONITORING 1 DEV DEV FS SCH (06:31)
--- NOTE | 2022-09-19 07:14 | NUR ---
ENDORSED PATIENT TO DAY NURSE FOR CONTINUITY OF CARE. PATIENT IN STABLE CONDITION.
[2022-09-19 07:16] LABS: BASOPHILS % (AUTO) 0.6 % (0.0-2.0); EOSINOPHILS # (AUTO) 0.3 K/uL (0-0.4); EOSINOPHILS % (AUTO) 4.2 % (0.0-4.0); HEMATOCRIT 32.8 % (36-48); HEMOGLOBIN 11.2 g/dL (12.0-16.0); LYMPHOCYTES # (AUTO) 1.6 K/uL (2.5-16.5); LYMPHOCYTES % (AUTO) 24.8 % (20.5-51.1); MEAN CORPUSCULAR HEMOGLOBIN 33 pg (27-31); MEAN CORPUSCULAR HGB CONC 34 g/dL (33-37); MEAN CORPUSCULAR VOLUME 95.2 fL (80-94); MONOCYTES # (AUTO) 0.8 K/uL (0.8-1.0); MONOCYTES % (AUTO) 11.7 % (1.7-9.3); NEUTROPHILS # (AUTO) 3.9 K/uL (1.8-7.7); NEUTROPHILS % (AUTO) 58.7 % (42.2-75.2); PLATELET COUNT (AUTO) 210 K/uL (140-450); RED BLOOD CELL COUNT(AUTO) 3.44 MIL/uL (4.20-5.40); RED CELL DISTRIBUTION WIDTH 14.5 % (11.6-13.7); WHITE BLOOD COUNT (AUTO) 6.6 K/uL (4.8-10.8)
[2022-09-19 07:20] LABS: ANION GAP 7.4 (8-16); CARBON DIOXIDE 29.5 mmol/L (21-32); CHLORIDE 105 mmol/L (98-107); CREATININE 0.7 mg/dL (0.6-1.3); GLUCOSE 95 mg/dL (74-106); POTASSIUM 3.9 mmol/L (3.5-5.1); SODIUM SERUM 138 mmol/L (136-145); UREA NITROGEN, BLOOD 5 mg/dL (7-18)
[2022-09-19 08:00] VITALS: BP 123/60
--- NOTE | 2022-09-19 08:00 | NUR ---
Received in no acute distress, bp vss. All safety measures in place. Patient incontinent of urine, unstable gait noted assisted to the restroom.
[2022-09-19] MEDS: lisinopriL 20 MG TAB PO SCH (09:00)
[2022-09-19] MEDS: MULTIVITAMIN 1 TAB PO SCH (09:00)
[2022-09-19] MEDS: PANTOPRAZOLE 40 MG TABEC PO SCH (09:00)
[2022-09-19] MEDS: levETIRAcetam 500 MG in NACL 0.9% 100 ML IV SCH (09:00)
[2022-09-19] MEDS: FOLIC ACID 1 MG TAB PO SCH ×2 (09:00→10:56)
[2022-09-19] MEDS: THIAMINE 100 MG TAB PO SCH (09:00)
[2022-09-19] MEDS ORDERED: LISI20TA29 PO (09:30)
[2022-09-19] MEDS ORDERED: THIA-34 PO (09:30)
[2022-09-19 12:33] VITALS: BP 145/66
[2022-09-19 12:47] VITALS: BP 154/76
--- NOTE | 2022-09-19 14:30 | NUR ---
Patient cleared for discharge by dr. Lazo. Discharged at this time accompanied by son. Discharged instructions given to patient and to son, expressed understanding.
[2022-09-19 15:07] LABS: T4 (THYROXINE) 7.7 ug/dL (4.5-12.0)
== END 2022-09-19 14:00 | disposition home or self-care (01) | DRG 100 ==
LOC: MED 16:03 → MTU 19:58
PROVIDERS: ADMIT Family Medicine; ATTEND Family Medicine
PROC: 4A10X4Z Monitoring of Central Nervous Electrical Activity, External Approach (ICD-10-PCS; principal; 2022-09-18)
DX: R56.9 Unspecified convulsions (principal); G92.8 Other toxic encephalopathy; E87.1 Hypo-osmolality and hyponatremia; J45.901 Unspecified asthma with (acute) exacerbation; F10.10 Alcohol abuse, uncomplicated; E78.00 Pure hypercholesterolemia, unspecified; I10 Essential (primary) hypertension; F32.A Depression, unspecified; F41.9 Anxiety disorder, unspecified; E86.0 Dehydration; Z79.82 Long term (current) use of aspirin
CPT/HCPCS: 36415; 70450; 76705; 80048; 80053; 80305; 81003; 82150; 82570; 82948; 83036; 83690; 83735; 83880; 83935; 84100; 84300; 84436; 84439; 84443; 84479; 84484; 85025; 85610; 85730; 87081; 93005; 96365; 96375; 99291; A9153; G0482; J1815; J1953; J2060; J3475; J3490; Q0092

== ENCOUNTER 2023-03-04 12:51 | Emergency (ER) | payer OTHER ==
[~2023-03-04] VITALS: Ht 157.5 cm; Wt 72.6 kg
[~2023-03-04 12:51] MED LIST changes: -AMIT10TA PO; -AMLO5TAB PO; -ASPI-1205 PO; -ATOR20TA PO; -BUS5 PO; -GABA100C PO; -IBUP-2213 PO; -LISI-487 PO; +LISI20TA29 PO; -METO100T14 PO; -PANT40EC56 PO; -PRED20TA5 PO; -ROSU20TA32 PO; +THIA-34 PO
[2023-03-04 13:16] VITALS: BP 168/81; PULSE 86; RESP 18; TEMP 97; O2SAT 98
== END 2023-03-04 16:08 | disposition left against medical advice (07) ==
LOC: MED 12:51
DX: R51.9 Headache, unspecified (principal); Z53.21 Procedure and treatment not carried out due to patient leaving prior to being seen by health care provider; W19.XXXA Unspecified fall, initial encounter; Y93.89 Activity, other specified; Y92.488 Other paved roadways as the place of occurrence of the external cause; Y99.8 Other external cause status
CPT/HCPCS: 99281

== ENCOUNTER 2023-06-27 09:26 | Inpatient (IN) | payer OTHER ==
[~2023-06-27] VITALS: Ht 149.9 cm; Wt 66.7 kg
[2023-06-27 09:28] VITALS: BP 136/73; PULSE 82; RESP 16; TEMP 96.8; O2SAT 97
[2023-06-27 10:21] LABS: BASOPHILS # (AUTO) 0.1 K/uL (0.00-0.22); BASOPHILS % (AUTO) 2.1 % (0.0-2.0); EOSINOPHILS # (AUTO) 0.3 K/uL (0-0.4); EOSINOPHILS % (AUTO) 5.2 % (0.0-4.0); HEMATOCRIT 36.7 % (36-48); HEMOGLOBIN 12.7 g/dL (12.0-16.0); LYMPHOCYTES # (AUTO) 1.6 K/uL (2.5-16.5); LYMPHOCYTES % (AUTO) 28.6 % (20.5-51.1); MEAN CORPUSCULAR HEMOGLOBIN 33 pg (27-31); MEAN CORPUSCULAR HGB CONC 35 g/dL (33-37); MEAN CORPUSCULAR VOLUME 96.5 fL (80-94); MONOCYTES # (AUTO) 0.6 K/uL (0.8-1.0); MONOCYTES % (AUTO) 10.5 % (1.7-9.3); NEUTROPHILS % (AUTO) 53.6 % (42.2-75.2); PLATELET COUNT (AUTO) 357 K/uL (140-450); RED CELL DISTRIBUTION WIDTH 15.8 % (11.6-13.7); WHITE BLOOD COUNT (AUTO) 5.6 K/uL (4.8-10.8)
[2023-06-27] MEDS ORDERED: cefTRIAXone 1,000 MG VIAL ONE (10:21)
[2023-06-27 10:32] LABS: ANION GAP 8.6 (8-16); CALCIUM 9.1 mg/dL (8.5-10.1); CARBON DIOXIDE 29.9 mmol/L (21-32); CHLORIDE 101 mmol/L (98-107); CREATININE 0.5 mg/dL (0.6-1.3); GLUCOSE 99 mg/dL (74-106); POTASSIUM 3.5 mmol/L (3.5-5.1); SODIUM SERUM 136 mmol/L (136-145); UREA NITROGEN, BLOOD 15 mg/dL (7-18)
[2023-06-27] MEDS ORDERED: ONDANSETRON 4 MG/2 ML VIAL ONE (11:00)
[2023-06-27 11:30] LABS: LACTIC ACID 0.9 mmol/L (0.4-2.0)
[2023-06-27] MEDS ORDERED: MORPHINE SULFATE 4 MG/ML SYR ONE (11:48)
[2023-06-27] MEDS: MORPHINE SULFATE 4 MG/ML SYR IVP ONE (12:08)
[2023-06-27] MEDS ORDERED: LORazepam 1 MG TAB PO PRN (12:10)
[2023-06-27] MEDS ORDERED: ZOLPIDEM 5 MG TAB PO PRN (12:10)
[2023-06-27] MEDS ORDERED: ONDANSETRON 4 MG/2 ML VIAL IVP PRN ×2 (12:10→23:00)
[2023-06-27] MEDS: cefTRIAXone 1,000 MG in DEXT 5% MINI-BAG PLUS 50 ML IV ONE (12:10)
[2023-06-27] MEDS: ONDANSETRON 4 MG/2 ML VIAL IVP ONE (12:11)
[2023-06-27 12:36] LABS: APPEARANCE,URINE CLEAR (CLEAR); BILIRUBIN,URINE NEGATIVE (NEGATIVE); BLOOD, URINE NEGATIVE (NEGATIVE); COLOR,URINE YELLOW (YELLOW); LEUKOCYTE ESTERASE ,URINE NEGATIVE (NEGATIVE); NITRITE, URINE NEGATIVE (NEGATIVE); PH,URINE 6.5 (5.0-9.0); PROTEIN,URINE NEGATIVE (NEGATIVE); UGLUCOSE NEGATIVE (NEGATIVE); UROBILINOGEN,URINE 0.2 EU/dL (0.2 - 1)
[2023-06-27 13:22] LABS: FLU A ANTIGEN negative (NEGATIVE); FLU B ANTIGEN negative (NEGATIVE)
[2023-06-27 20:12] VITALS: O2SAT 98
[2023-06-27 20:48] VITALS: PULSE 63; RESP 18; O2SAT 98
[2023-06-27] MEDS: NACL 0.9% 1,000 ML IV SCH (21:13)
[2023-06-27] MEDS ORDERED: MORPHINE SULFATE 2 MG/ML SYR IVP PRN (23:00)
[2023-06-27] MEDS: ASPIRIN 81 MG TAB.CHEW PO SCH (23:00)
[2023-06-28 00:10] LABS: CHOL/HDL RATIO 2.7 (1-4.5)
[2023-06-28] MEDS: NACL 0.9% 1,000 ML IV SCH (01:11)
[2023-06-28 04:00] VITALS: BP 159/76; PULSE 78; RESP 18; TEMP 97.6; O2SAT 99
[2023-06-28 05:37] LABS: BASOPHILS % (AUTO) 0.5 % (0.0-2.0); EOSINOPHILS # (AUTO) 0.3 K/uL (0-0.4); EOSINOPHILS % (AUTO) 4.9 % (0.0-4.0); HEMATOCRIT 35.9 % (36-48); HEMOGLOBIN 12.4 g/dL (12.0-16.0); LYMPHOCYTES # (AUTO) 1.6 K/uL (2.5-16.5); MEAN CORPUSCULAR HEMOGLOBIN 33 pg (27-31); MEAN CORPUSCULAR HGB CONC 35 g/dL (33-37); MEAN CORPUSCULAR VOLUME 96.8 fL (80-94); MONOCYTES # (AUTO) 0.5 K/uL (0.8-1.0); MONOCYTES % (AUTO) 9.4 % (1.7-9.3); NEUTROPHILS # (AUTO) 2.9 K/uL (1.8-7.7); NEUTROPHILS % (AUTO) 55.2 % (42.2-75.2); PLATELET COUNT (AUTO) 348 K/uL (140-450); RED CELL DISTRIBUTION WIDTH 15.5 % (11.6-13.7); WHITE BLOOD COUNT (AUTO) 5.2 K/uL (4.8-10.8)
[2023-06-28 06:23] LABS: ALANINE AMINOTRANSFERASE 19 U/L (12-78); ALKALINE PHOSPHATASE 104 U/L (50-136); ANION GAP 12.6 (8-16); ASPARTATE AMINOTRANSFERASE 20 U/L (15-37); CALCIUM 8.4 mg/dL (8.5-10.1); CARBON DIOXIDE 26.2 mmol/L (21-32); CHLORIDE 102 mmol/L (98-107); CREATININE 0.6 mg/dL (0.6-1.3); GLUCOSE 103 mg/dL (74-106); POTASSIUM 3.8 mmol/L (3.5-5.1); SODIUM SERUM 137 mmol/L (136-145); TOTAL BILIRUBIN 0.2 mg/dL (0.0-1.0); TOTAL PROTEIN, SERUM 7.2 g/dL (6.4-8.2); UREA NITROGEN, BLOOD 10 mg/dL (7-18)
[2023-06-28 08:00] VITALS: BP 194/79; PULSE 99; RESP 18; TEMP 97.5; O2SAT 100; O2SAT 98
[2023-06-28] MEDS: DOCUSATE SODIUM 100 MG GELCAP PO SCH (08:48)
[2023-06-28] MEDS: carvediloL 3.125 MG TAB PO SCH (08:49)
[2023-06-28] MEDS: HYDROcodone/APAP 5/325 MG 1 TAB TAB PO PRN (08:49)
[2023-06-28] MEDS ORDERED: lisinopriL 20 MG TAB PO SCH ×2 (09:40→21:00)
[2023-06-28 09:45] VITALS: BP 137/67; PULSE 82
[2023-06-28] MEDS: MAGNESIUM HYDROXIDE 2400 MG/30 ML UDC PO PRN (14:32)
[2023-06-28 16:00] VITALS: BP 146/56; PULSE 77; RESP 18; TEMP 97.7; O2SAT 100
[2023-06-28] MEDS ORDERED: HYDR12.51 PO (17:22)
[2023-06-28] MEDS ORDERED: CARV3.122 PO (17:22)
[2023-06-28] MEDS ORDERED: ASPI81CT95 PO (17:22)
[2023-06-28] MEDS ORDERED: ATOR10TA PO (17:23)
[2023-06-28 17:40] VITALS: BP 146/56; PULSE 77; RESP 18; TEMP 97.7
[2023-06-28] MEDS ORDERED: SIMVASTATIN 20 MG TAB PO SCH (21:00)
== END 2023-06-28 18:00 | disposition home or self-care (01) | DRG 948 ==
LOC: MED 09:26 → MMU 12:14 → MTU 20:12
PROVIDERS: ADMIT Student in an Organized Health Care Education/Training Program; ATTEND Student in an Organized Health Care Education/Training Program
DX: R53.1 Weakness (principal); E44.1 Mild protein-calorie malnutrition; Z20.822 Contact with and (suspected) exposure to COVID-19; I10 Essential (primary) hypertension; Z68.29 Body mass index [BMI] 29.0-29.9, adult
CPT/HCPCS: 36415; 70450; 71045; 80048; 80053; 81003; 82948; 83036; 83605; 83880; 84443; 84484; 85025; 87040; 87081; 87086; 93005; 96365; 96375; 97112; 97116; 99285; J0696; J2270; J2405

== ENCOUNTER 2023-07-03 10:52 | Emergency (ER) | payer OTHER ==
[~2023-07-03] VITALS: Ht 149.9 cm; Wt 68.0 kg
[~2023-07-03 10:52] MED LIST changes: +ASPI81CT95 PO; +ATOR10TA PO; +CARV3.122 PO; +HYDR12.51 PO
[2023-07-03 10:56] VITALS: BP 146/71; PULSE 73; RESP 20; TEMP 97.3; O2SAT 96
[2023-07-03] MEDS ORDERED: ONDA8TAB87 PO (13:52)
[2023-07-03 14:06] VITALS: BP 132/71; PULSE 71; RESP 20; TEMP 97.3; O2SAT 96
== END 2023-07-03 14:07 | disposition home or self-care (01) ==
LOC: MED 10:52
DX: R53.1 Weakness (principal); R35.0 Frequency of micturition; R10.13 Epigastric pain; R11.0 Nausea; J45.909 Unspecified asthma, uncomplicated; I10 Essential (primary) hypertension; Z86.73 Personal history of transient ischemic attack (TIA), and cerebral infarction without residual deficits; Z98.890 Other specified postprocedural states; Z79.899 Other long term (current) drug therapy; Z79.82 Long term (current) use of aspirin
CPT/HCPCS: 81002; 99283

== ENCOUNTER 2023-08-09 08:06 | Inpatient (IN) | payer OTHER ==
[2023-08-09] VITALS (7 sets, daily range): BP systolic 115–160; BP diastolic 54–73; PULSE 73–88; RESP 18–20; TEMP 97.4–98.6; O2SAT 95–100
[~2023-08-09] VITALS: Ht 149.9 cm; Wt 78.5 kg
[~2023-08-09 08:06] MED LIST changes: +ONDA8TAB87 PO
[2023-08-09] MEDS: ONDANSETRON 4 MG/2 ML VIAL IVP ONE (08:53)
[2023-08-09] MEDS: OLANZapine 5 MG ODT SL ONE (08:53)
[2023-08-09] MEDS: ACETAMINOPHEN EXTRA STRENGTH 500 MG TAB PO ONE (08:54)
[2023-08-09 09:33] LABS: BASOPHILS # (AUTO) 0.1 K/uL (0.00-0.22); BASOPHILS % (AUTO) 1.1 % (0.0-2.0); EOSINOPHILS # (AUTO) 0.3 K/uL (0-0.4); EOSINOPHILS % (AUTO) 4.4 % (0.0-4.0); HEMOGLOBIN 11.6 g/dL (12.0-16.0); LYMPHOCYTES # (AUTO) 2.5 K/uL (2.5-16.5); LYMPHOCYTES % (AUTO) 34.5 % (20.5-51.1); MEAN CORPUSCULAR HEMOGLOBIN 32 pg (27-31); MEAN CORPUSCULAR HGB CONC 34 g/dL (33-37); MONOCYTES # (AUTO) 0.7 K/uL (0.8-1.0); NEUTROPHILS # (AUTO) 3.7 K/uL (1.8-7.7); PLATELET COUNT (AUTO) 378 K/uL (140-450); RED BLOOD CELL COUNT(AUTO) 3.58 MIL/uL (4.20-5.40); RED CELL DISTRIBUTION WIDTH 14.3 % (11.6-13.7); WHITE BLOOD COUNT (AUTO) 7.3 K/uL (4.8-10.8)
[2023-08-09 09:35] LABS: ANION GAP 12.1 (8-16); CALCIUM 8.1 mg/dL (8.5-10.1); CARBON DIOXIDE 25.7 mmol/L (21-32); CHLORIDE 96 mmol/L (98-107); CREATININE 0.7 mg/dL (0.6-1.3); GLUCOSE 80 mg/dL (74-106); POTASSIUM 3.8 mmol/L (3.5-5.1); SODIUM SERUM 130 mmol/L (136-145); UREA NITROGEN, BLOOD 13 mg/dL (7-18)
[2023-08-09 09:42] LABS: ALANINE AMINOTRANSFERASE 12 U/L (12-78); ALBUMIN 3.2 g/dL (3.4-5.0); ALKALINE PHOSPHATASE 90 U/L (50-136); ASPARTATE AMINOTRANSFERASE 16 U/L (15-37); BILIRUBIN,DIRECT 0.1 mg/dL (0.0-0.3); LIPASE 327 U/L (16-77); TOTAL BILIRUBIN 0.2 mg/dL (0.0-1.0)
[2023-08-09] MEDS: NACL 0.9% 1,000 ML IV SCH (10:55)
[2023-08-09] MEDS ORDERED: ONDANSETRON 4 MG/2 ML VIAL IVP PRN (10:55)
[2023-08-09] MEDS ORDERED: HYDROcodone/APAP 5/325 MG 1 TAB TAB PO PRN (10:55)
[2023-08-09] MEDS ORDERED: ALBUTEROL 0.083% 2.5 MG/3 ML NEBU INH PRN (10:55)
[2023-08-09 11:00] LABS: APPEARANCE,URINE CLEAR (CLEAR); BILIRUBIN,URINE NEGATIVE (NEGATIVE); BLOOD, URINE NEGATIVE (NEGATIVE); COLOR,URINE YELLOW (YELLOW); LEUKOCYTE ESTERASE ,URINE NEGATIVE (NEGATIVE); NITRITE, URINE NEGATIVE (NEGATIVE); PROTEIN,URINE NEGATIVE (NEGATIVE); UGLUCOSE NEGATIVE (NEGATIVE); UROBILINOGEN,URINE 0.2 EU/dL (0.2 - 1)
[2023-08-09] MEDS: ASPIRIN 325 MG TAB PO ONE (11:01)
[2023-08-09] MEDS ORDERED: ASPIRIN 325 MG TAB ONE (11:12)
[2023-08-10] VITALS (8 sets, daily range): BP systolic 128–140; BP diastolic 69–90; PULSE 75–89; RESP 18–19; TEMP 97.2–97.9; O2SAT 96–100
[2023-08-10] MEDS: ACETAMINOPHEN 325 MG TAB PO PRN (03:38)
[2023-08-10 06:37] LABS: BASOPHILS # (AUTO) 0.1 K/uL (0.00-0.22); BASOPHILS % (AUTO) 1.3 % (0.0-2.0); EOSINOPHILS # (AUTO) 0.3 K/uL (0-0.4); EOSINOPHILS % (AUTO) 4.9 % (0.0-4.0); LYMPHOCYTES # (AUTO) 1.7 K/uL (2.5-16.5); LYMPHOCYTES % (AUTO) 26.8 % (20.5-51.1); MEAN CORPUSCULAR HEMOGLOBIN 33 pg (27-31); MEAN CORPUSCULAR HGB CONC 35 g/dL (33-37); MEAN CORPUSCULAR VOLUME 94.2 fL (80-94); MONOCYTES # (AUTO) 0.5 K/uL (0.8-1.0); MONOCYTES % (AUTO) 8.3 % (1.7-9.3); NEUTROPHILS # (AUTO) 3.7 K/uL (1.8-7.7); NEUTROPHILS % (AUTO) 58.7 % (42.2-75.2); PLATELET COUNT (AUTO) 390 K/uL (140-450); RED BLOOD CELL COUNT(AUTO) 3.71 MIL/uL (4.20-5.40); RED CELL DISTRIBUTION WIDTH 14.6 % (11.6-13.7); WHITE BLOOD COUNT (AUTO) 6.4 K/uL (4.8-10.8)
[2023-08-10 06:48] LABS: ANION GAP 12.3 (8-16); CALCIUM 8.6 mg/dL (8.5-10.1); CARBON DIOXIDE 25.1 mmol/L (21-32); CHLORIDE 102 mmol/L (98-107); CREATININE 0.6 mg/dL (0.6-1.3); GLUCOSE 91 mg/dL (74-106); POTASSIUM 4.4 mmol/L (3.5-5.1); SODIUM SERUM 135 mmol/L (136-145); UREA NITROGEN, BLOOD 15 mg/dL (7-18)
[2023-08-10] MEDS: ENOXAPARIN 40 MG/0.4 ML SYR SUBQ SCH (08:31)
[2023-08-10] MEDS ORDERED: OLAN7.5T1 PO (10:31)
== END 2023-08-10 11:10 | disposition home or self-care (01) | DRG 640 ==
LOC: MED 08:06 → MTU 10:55
PROVIDERS: ADMIT Student in an Organized Health Care Education/Training Program; ATTEND Student in an Organized Health Care Education/Training Program
DX: E87.1 Hypo-osmolality and hyponatremia (principal); I21.A1 Myocardial infarction type 2; K57.92 Diverticulitis of intestine, part unspecified, without perforation or abscess without bleeding; I10 Essential (primary) hypertension; F41.9 Anxiety disorder, unspecified; G30.9 Alzheimer's disease, unspecified; F02.80 Dementia in other diseases classified elsewhere, unspecified severity, without behavioral disturbance, psychotic disturbance, mood disturbance, and anxiety; Z79.82 Long term (current) use of aspirin; Z79.899 Other long term (current) drug therapy; Z83.3 Family history of diabetes mellitus; Z82.49 Family history of ischemic heart disease and other diseases of the circulatory system; Z80.0 Family history of malignant neoplasm of digestive organs
CPT/HCPCS: 36415; 70450; 71045; 80048; 80076; 81003; 83690; 84484; 85025; 93005; 96374; 99285; J1650; J2405

== ENCOUNTER 2023-12-27 09:01 | Emergency (ER) | payer MEDICARE, OTHER ==
[~2023-12-27] VITALS: Ht 142.2 cm; Wt 67.6 kg
[~2023-12-27 09:01] MED LIST changes: -ONDA8TAB87 PO
[2023-12-27 09:09] VITALS: BP 172/94; PULSE 84; RESP 16; TEMP 98; O2SAT 98
[2023-12-27 10:03] LABS: BASOPHILS # (AUTO) 0.1 K/uL (0.00-0.22); BASOPHILS % (AUTO) 1.5 % (0.0-2.0); EOSINOPHILS # (AUTO) 0.4 K/uL (0-0.4); EOSINOPHILS % (AUTO) 4.7 % (0.0-4.0); HEMOGLOBIN 13.9 g/dL (12.0-16.0); LYMPHOCYTES # (AUTO) 1.8 K/uL (2.5-16.5); LYMPHOCYTES % (AUTO) 19.6 % (20.5-51.1); MEAN CORPUSCULAR HEMOGLOBIN 32 pg (27-31); MEAN CORPUSCULAR HGB CONC 34 g/dL (33-37); MEAN CORPUSCULAR VOLUME 93.7 fL (80-94); MONOCYTES # (AUTO) 0.6 K/uL (0.8-1.0); MONOCYTES % (AUTO) 6.1 % (1.7-9.3); NEUTROPHILS # (AUTO) 6.2 K/uL (1.8-7.7); NEUTROPHILS % (AUTO) 68.1 % (42.2-75.2); PLATELET COUNT (AUTO) 382 K/uL (140-450); RED BLOOD CELL COUNT(AUTO) 4.38 MIL/uL (4.20-5.40); RED CELL DISTRIBUTION WIDTH 14.7 % (11.6-13.7); WHITE BLOOD COUNT (AUTO) 9.1 K/uL (4.8-10.8)
[2023-12-27 10:16] LABS: ALANINE AMINOTRANSFERASE 22 U/L (12-78); ALBUMIN 4.1 g/dL (3.4-5.0); ALKALINE PHOSPHATASE 124 U/L (50-136); ANION GAP 13.1 (8-16); ASPARTATE AMINOTRANSFERASE 24 U/L (15-37); CALCIUM 9.5 mg/dL (8.5-10.1); CARBON DIOXIDE 24.7 mmol/L (21-32); CHLORIDE 98 mmol/L (98-107); CREATININE 0.6 mg/dL (0.6-1.3); GLUCOSE 102 mg/dL (74-106); LIPASE 40 U/L (16-77); POTASSIUM 3.8 mmol/L (3.5-5.1); SODIUM SERUM 132 mmol/L (136-145); TOTAL BILIRUBIN 0.5 mg/dL (0.0-1.0); TOTAL PROTEIN, SERUM 7.9 g/dL (6.4-8.2); UREA NITROGEN, BLOOD 12 mg/dL (7-18)
[2023-12-27] MEDS: ONDANSETRON 4 MG/2 ML VIAL IVP ONE (10:19)
[2023-12-27] MEDS: NACL 0.9% 1,000 ML IV ONE (10:19)
[2023-12-27 11:41] LABS: APPEARANCE,URINE CLEAR (CLEAR); BILIRUBIN,URINE NEGATIVE (NEGATIVE); BLOOD, URINE NEGATIVE (NEGATIVE); COLOR,URINE YELLOW (YELLOW); LEUKOCYTE ESTERASE ,URINE NEGATIVE (NEGATIVE); NITRITE, URINE NEGATIVE (NEGATIVE); PH,URINE 7.5 (5.0-9.0); PROTEIN,URINE NEGATIVE (NEGATIVE); UGLUCOSE NEGATIVE (NEGATIVE); UROBILINOGEN,URINE 0.2 EU/dL (0.2 - 1)
[2023-12-27] MEDS: lisinopriL 20 MG TAB PO ONE (12:17)
[2023-12-27] MEDS: carvediloL 6.25 MG TAB PO ONE (12:18)
[2023-12-27] MEDS ORDERED: ONDA-188 SL (12:24)
[2023-12-27] MEDS ORDERED: AMOX-1230 PO (12:24)
[2023-12-27] MEDS: hydroCHLOROthiazide 25 MG TAB PO ONE (12:32)
[2023-12-27 12:51] VITALS: BP 169/93; PULSE 97; RESP 18; TEMP 98; O2SAT 98
== END 2023-12-27 12:51 | disposition home or self-care (01) ==
LOC: MED 09:01
DX: K52.9 Noninfective gastroenteritis and colitis, unspecified (principal); J45.909 Unspecified asthma, uncomplicated; I10 Essential (primary) hypertension; Z86.73 Personal history of transient ischemic attack (TIA), and cerebral infarction without residual deficits; Z79.82 Long term (current) use of aspirin; Z79.899 Other long term (current) drug therapy
CPT/HCPCS: 36415; 74177; 80053; 81003; 83690; 85025; 96361; 96374; 99285; J2405; J7030; Q9967

== ENCOUNTER 2024-02-10 16:07 | Emergency (ER) | payer MEDICARE, OTHER ==
[~2024-02-10] VITALS: Ht 149.9 cm; Wt 81.6 kg
[~2024-02-10 16:07] MED LIST changes: +AMOX-1230 PO; +ONDA-188 SL
[2024-02-10 16:20] VITALS: BP 195/74; PULSE 97; RESP 19; TEMP 98.1; O2SAT 98
== END 2024-02-10 17:05 | disposition left against medical advice (07) ==
LOC: MED 16:07
DX: R51.9 Headache, unspecified (principal); R07.9 Chest pain, unspecified; F41.9 Anxiety disorder, unspecified; Z53.21 Procedure and treatment not carried out due to patient leaving prior to being seen by health care provider

== ENCOUNTER 2024-02-14 05:50 | Emergency (ER) | payer MEDICARE, OTHER ==
[~2024-02-14] VITALS: Ht 142.2 cm; Wt 72.6 kg
[2024-02-14 05:57] VITALS: BP 159/84; PULSE 86; RESP 14; TEMP 98.6; O2SAT 99
[2024-02-14] MEDS ORDERED: DICYCLOMINE HCL LIQUID 10 MG/5 ML UDC ONE (06:57)
[2024-02-14] MEDS ORDERED: ALUMINUM HYD/MAG/SIMETHICONE 30 ML UDC ONE (06:57)
[2024-02-14] MEDS: ONDANSETRON 4 MG/2 ML VIAL IVP ONE (06:58)
[2024-02-14] MEDS: NACL 0.9% 1,000 ML IV SCH (06:58)
[2024-02-14] MEDS: KETOROLAC 30 MG/ML VIAL IVP ONE (07:02)
[2024-02-14] MEDS: DICYCLOMINE HCL LIQUID 20 MG, ALUMINUM HYD/MAG/SIMETHICONE 30 ML, LIDOCAINE VISCOUS 2% ... PO ONE (07:03)
[2024-02-14 08:05] LABS: BILIRUBIN,URINE NEGATIVE (NEGATIVE); BLOOD, URINE NEGATIVE (NEGATIVE); LEUKOCYTE ESTERASE ,URINE NEGATIVE (NEGATIVE); NITRITE, URINE NEGATIVE (NEGATIVE); PROTEIN,URINE NEGATIVE (NEGATIVE); UGLUCOSE NEGATIVE (NEGATIVE); UROBILINOGEN,URINE 0.2 EU/dL (0.2 - 1)
[2024-02-14 08:06] LABS: APPEARANCE,URINE TURBID (CLEAR); COLOR,URINE AMBER (YELLOW)
[2024-02-14 08:46] LABS: BASOPHILS # (AUTO) 0.1 K/uL (0.00-0.22); BASOPHILS % (AUTO) 1.1 % (0.0-2.0); EOSINOPHILS # (AUTO) 0.4 K/uL (0-0.4); EOSINOPHILS % (AUTO) 5.4 % (0.0-4.0); HEMATOCRIT 37.5 % (36-48); HEMOGLOBIN 12.8 g/dL (12.0-16.0); LYMPHOCYTES # (AUTO) 1.9 K/uL (2.5-16.5); LYMPHOCYTES % (AUTO) 24.3 % (20.5-51.1); MEAN CORPUSCULAR HEMOGLOBIN 32 pg (27-31); MEAN CORPUSCULAR HGB CONC 34 g/dL (33-37); MEAN CORPUSCULAR VOLUME 93.3 fL (80-94); MONOCYTES # (AUTO) 0.7 K/uL (0.8-1.0); MONOCYTES % (AUTO) 8.4 % (1.7-9.3); NEUTROPHILS # (AUTO) 4.9 K/uL (1.8-7.7); NEUTROPHILS % (AUTO) 60.8 % (42.2-75.2); PLATELET COUNT (AUTO) 334 K/uL (140-450); RED BLOOD CELL COUNT(AUTO) 4.02 MIL/uL (4.20-5.40); RED CELL DISTRIBUTION WIDTH 14.3 % (11.6-13.7)
[2024-02-14 08:51] LABS: ANION GAP 11.5 (8-16); CALCIUM 8.3 mg/dL (8.5-10.1); CARBON DIOXIDE 27.5 mmol/L (21-32); CHLORIDE 94 mmol/L (98-107); CREATININE 0.6 mg/dL (0.6-1.3); GLUCOSE 99 mg/dL (74-106); SODIUM SERUM 129 mmol/L (136-145); UREA NITROGEN, BLOOD 12 mg/dL (7-18)
[2024-02-14 08:58] LABS: ALBUMIN 3.6 g/dL (3.4-5.0); BILIRUBIN,DIRECT 0.1 mg/dL (0.0-0.3); TOTAL BILIRUBIN 0.4 mg/dL (0.0-1.0); TOTAL PROTEIN, SERUM 7.2 g/dL (6.4-8.2)
[2024-02-14] MEDS ORDERED: OMEP20EC11 PO (09:21)
[2024-02-14] MEDS ORDERED: SUCR1SUS7 PO (09:21)
[2024-02-14] MEDS ORDERED: METO-485 PO (09:21)
[2024-02-14] MEDS ORDERED: BEN10 PO (09:51)
[2024-02-14 09:56] VITALS: BP 168/84; PULSE 78; RESP 14; TEMP 98; O2SAT 96
== END 2024-02-14 09:56 | disposition home or self-care (01) ==
LOC: MED 05:50
DX: R10.9 Unspecified abdominal pain (principal); R11.0 Nausea; J45.909 Unspecified asthma, uncomplicated; I10 Essential (primary) hypertension; Z86.73 Personal history of transient ischemic attack (TIA), and cerebral infarction without residual deficits; Z98.890 Other specified postprocedural states; Z79.899 Other long term (current) drug therapy; Z79.82 Long term (current) use of aspirin
CPT/HCPCS: 36415; 74176; 80048; 80076; 81003; 82150; 83690; 83880; 84484; 85025; 93005; 96361; 96374; 96375; 99285; J1885; J2405; J7030

== ENCOUNTER 2024-02-26 08:33 | Emergency (ER) | payer MEDICARE, OTHER ==
[~2024-02-26] VITALS: Ht 142.2 cm; Wt 108.9 kg
[~2024-02-26 08:33] MED LIST changes: +BEN10 PO; +METO-485 PO; +OMEP20EC11 PO; +SUCR1SUS7 PO
[2024-02-26 08:47] VITALS: BP 138/78; PULSE 81; RESP 18; TEMP 98.2; O2SAT 97
[2024-02-26] MEDS: ONDANSETRON 4 MG/2 ML VIAL IVP ONE (08:50)
[2024-02-26] MEDS: FAMOTIDINE 20 MG/2 ML VIAL IVP ONE (08:50)
[2024-02-26] MEDS: MECLIZINE 25 MG TAB PO ONE (08:50)
[2024-02-26 09:29] LABS: ANION GAP 12.4 (8-16); CARBON DIOXIDE 25.7 mmol/L (21-32); CHLORIDE 95 mmol/L (98-107); CREATININE 0.7 mg/dL (0.6-1.3); GLUCOSE 91 mg/dL (74-106); POTASSIUM 4.1 mmol/L (3.5-5.1); SODIUM SERUM 129 mmol/L (136-145); UREA NITROGEN, BLOOD 15 mg/dL (7-18)
[2024-02-26 09:50] LABS: ALANINE AMINOTRANSFERASE 22 U/L (12-78); ALBUMIN 3.7 g/dL (3.4-5.0); ALKALINE PHOSPHATASE 112 U/L (50-136); ASPARTATE AMINOTRANSFERASE 19 U/L (15-37); BILIRUBIN,DIRECT 0.1 mg/dL (0.0-0.3); LIPASE 68 U/L (16-77); TOTAL BILIRUBIN 0.3 mg/dL (0.0-1.0); TOTAL PROTEIN, SERUM 6.9 g/dL (6.4-8.2)
[2024-02-26 09:53] LABS: BASOPHILS # (AUTO) 0.1 K/uL (0.00-0.22); BASOPHILS % (AUTO) 0.8 % (0.0-2.0); EOSINOPHILS # (AUTO) 0.4 K/uL (0-0.4); EOSINOPHILS % (AUTO) 5.2 % (0.0-4.0); HEMATOCRIT 37.1 % (36-48); HEMOGLOBIN 12.9 g/dL (12.0-16.0); LYMPHOCYTES # (AUTO) 1.7 K/uL (2.5-16.5); LYMPHOCYTES % (AUTO) 21.2 % (20.5-51.1); MEAN CORPUSCULAR HEMOGLOBIN 33 pg (27-31); MEAN CORPUSCULAR HGB CONC 35 g/dL (33-37); MEAN CORPUSCULAR VOLUME 93.5 fL (80-94); MONOCYTES # (AUTO) 0.7 K/uL (0.8-1.0); MONOCYTES % (AUTO) 8.4 % (1.7-9.3); NEUTROPHILS # (AUTO) 5.3 K/uL (1.8-7.7); NEUTROPHILS % (AUTO) 64.4 % (42.2-75.2); PLATELET COUNT (AUTO) 351 K/uL (140-450); RED BLOOD CELL COUNT(AUTO) 3.97 MIL/uL (4.20-5.40); RED CELL DISTRIBUTION WIDTH 14.7 % (11.6-13.7); WHITE BLOOD COUNT (AUTO) 8.3 K/uL (4.8-10.8)
[2024-02-26 11:52] VITALS: BP 144/62; PULSE 89; RESP 19; TEMP 98; O2SAT 99
== END 2024-02-26 12:00 | disposition home or self-care (01) ==
LOC: MED 08:33
DX: R51.9 Headache, unspecified (principal); R10.84 Generalized abdominal pain; J45.909 Unspecified asthma, uncomplicated; I10 Essential (primary) hypertension; Z86.73 Personal history of transient ischemic attack (TIA), and cerebral infarction without residual deficits; Z79.899 Other long term (current) drug therapy; Z79.82 Long term (current) use of aspirin
CPT/HCPCS: 36415; 70450; 71045; 74176; 80048; 80076; 83690; 84484; 85025; 93005; 96374; 96375; 99285; J2405; J3490; J8597; Q0092